=== PATIENT | female | born 1955 | race Caucasian/White ===

== ENCOUNTER → 2017-08-04 09:02 | Outpatient (CLI) | payer BC, SELFPAY ==
[2017-08-04 10:38] LABS: AST(SGOT) 13 U/L (15-37); Alanine Aminotransfer ALT/SGPT 21 U/L (13-56); Albumin, Serum 3.7 g/dL (3.2-5.0); Alkaline Phosphatase 116 U/L (45-117); Anion Gap 8 (5-15); BUN 14 mg/dL (7-18); BUN/Creat Ratio 19.9 RATIO (10-20); Calcium,Total 9.2 mg/dL (8.5-10.1); Chloride 105 mmol/L (98-107); Cholesterol 145 mg/dL (200); EST Glomerular Filtration Rate 89 mL/min (>60); Est Glom Filt Rate - Afr Amer 108 mL/min (>60); Globulin 3.6 g/dL (2.2-4.2); Glucose 158 mg/dL (74-106); High Density Lipoprotein 59 mg/dL; Potassium 4.1 mmol/L (3.5-5.1); Protein, Total 7.3 g/dL (6.4-8.2); Sodium Level 140 mmol/L (136-145); Triglycerides 114 mg/dL; Very Low Density Lipoprotein 23 mg/dL (5-40)
[2017-08-04 10:50] LABS: Microalbumin,Random Urine 10.4 mg/L (NO RANGE EST.); Microalbumin:Creatinine Ratio 10.8 mg/g CRE (<30 mg/g CRE)
[2017-08-05 08:48] LABS: Vitamin D,25 Hydroxy 27.5 ng/mL (29.95-100.01)
== END ==
PROVIDERS: Family Provider Internal Medicine; PCP Internal Medicine; Visit Provider Internal Medicine
DX: E11.9 Type 2 diabetes mellitus without complications (principal); E78.5 Hyperlipidemia, unspecified; M85.80 Other specified disorders of bone density and structure, unspecified site
CPT/HCPCS: 36415; 80053; 80061; 82043; 82306; 82570; 83036

== ENCOUNTER → 2017-10-06 09:54 | Outpatient (CLI) | payer BC, SELFPAY ==
[2017-10-06 11:15] LABS: Rheumatoid Factor < 10.0 IU/mL (<15)
[2017-10-07 14:35] LABS: ANTINUCLEAR ANTIBODIES DIRECT Negative (Negative)
== END ==
LOC: LAB 09:58 → INT LAB 10:00
PROVIDERS: Family Provider Internal Medicine; PCP Internal Medicine; Visit Provider Internal Medicine
DX: M19.90 Unspecified osteoarthritis, unspecified site (principal)
CPT/HCPCS: 36415; 86038; 86225; 86235; 86431

== ENCOUNTER → 2017-11-03 07:20 | Outpatient (CLI) | payer BC, SELFPAY ==
--- NOTE | 2017-11-03 07:20 | DT_ITS ---
This patient was seen during an EMR downtime November 02, 2017 - November 09, 2017. This patient may have a combination of paper and electronic documentation or all paper documentation. All documentation is viewable within the e-chart portion of [facility] for each patient visit.
--- NOTE | 2017-11-03 07:25 | BI_ITS ---
MAMMOGRAPHY - BILATERAL SCREENING REASON FOR EXAM: Female, 62 years old. Routine annual screening examination. PERTINENT HISTORY: PERSONAL HX @ AGE 59 - RT LUMPECTOMY 2015 - CURRENT ESTROEN KIRK x 3 YRS TECHNIQUE: Digital bilateral breast nikki (3D mammographic acquisition) in the CC and MLO projections. 2-D mediolateral oblique (MLO) and craniocaudad (CC) views of both breasts were obtained. CAD: Full Field Digital Mammography with Computer Added Detection was performed. COMPARISON: 11/11/2016, 05/29/2016, 11/06/2015, 05/17/2015. FINDINGS: Breast Composition: The breasts are heterogeneously dense, which may obscure small masses. There are no dominant masses or suspicious calcifications. There is a scar in the right breast at the lumpectomy site appears unchanged since the previous studies. No other significant abnormalities are identified. BI/SCREENING MAMM (CAD), BILAT IMPRESSION: Stable bilateral screening mammogram. Yearly follow-up mammogram recommended. (A) ASSESSMENT CATEGORY: BIRADS Category 2: Benign. A letter regarding these results will be sent to the patient by the facility within 30 days. Approximately 10% of breast cancers are not detected by mammography. A normal mammogram should not delay biopsy of a clinically suspicious abnormality. [id number] Electronically Signed: Hali Patel MD at 15:48 EDT Tel , Service support ,
== END ==
PROVIDERS: Family Provider Internal Medicine; PCP Internal Medicine; Visit Provider Internal Medicine Hematology & Oncology
DX: Z12.31 Encounter for screening mammogram for malignant neoplasm of breast (principal); C50.911 Malignant neoplasm of unspecified site of right female breast; M85.80 Other specified disorders of bone density and structure, unspecified site
CPT/HCPCS: 77063; 77067

== ENCOUNTER → 2018-01-12 08:41 | Outpatient (CLI) | payer BC, SELFPAY ==
[2018-01-12 09:22] LABS: Absolute Lymphocyte Count 1.26 X10^3/ul (0.83-4.51); Absolute Neutrophil Count 3.8 X10^3/uL (2.0-7.7); Basophil# 0.02 X10^3/uL; Basophil% 0.4 % (0-1); Eosinophil# 0.13 X10^3/uL; Eosinophils% 2.4 % (0-5); Hematocrit 40.6 % (37-47); Hemoglobin 13.1 g/dl (12.0-15.0); Lymphocyte # 1.26 X10^3/ul (4.0); Lymphocyte % 23.3 % (19-41); Mean Corp Hgb Conc 32.3 g/gl (32-36); Mean Corpuscular Hgb 29.4 pg (27.0-32.0); Mean Platelet Vol. 8.7 fl (6.2-12.0); Monocyte# 0.21 X10^3/uL; Monocyte% 3.9 % (0-10); Neutrophil # 3.79 X10^3/uL (2.7-7.7); POSITIVE COUNT NO; POSITIVE DIFFERENTIAL NO; POSITIVE MORPHOLOGY NO; Platelet Count 226 K/mm3 (150-450); Red Blood Count 4.46 M/mm3 (4.2-5.4); White Blood Count 5.4 K/mm3 (4.4-11.0)
[2018-01-12 09:45] LABS: Hemoglobin A1c 6.6 % (4.2-6.3)
[2018-01-12 09:54] LABS: AST(SGOT) 14 U/L (15-37); Alanine Aminotransfer ALT/SGPT 21 U/L (13-56); Albumin, Serum 3.6 g/dL (3.2-5.0); Alkaline Phosphatase 64 U/L (45-117); Anion Gap 8 (5-15); BUN 16 mg/dL (7-18); BUN/Creat Ratio 20.2 RATIO (10-20); Calcium,Total 9.2 mg/dL (8.5-10.1); Chloride 104 mmol/L (98-107); Creatinine, Serum 0.79 mg/dL (0.55-1.02); EST Glomerular Filtration Rate 78 mL/min (>60); Est Glom Filt Rate - Afr Amer 94 mL/min (>60); Globulin 3.6 g/dL (2.2-4.2); Glucose 161 mg/dL (74-106); Potassium 4.9 mmol/L (3.5-5.1); Protein, Total 7.2 g/dL (6.4-8.2); Sodium Level 141 mmol/L (136-145)
== END ==
PROVIDERS: Internal Medicine Hematology & Oncology; Family Provider Internal Medicine; PCP Internal Medicine; Visit Provider Internal Medicine
DX: E11.9 Type 2 diabetes mellitus without complications (principal); M85.80 Other specified disorders of bone density and structure, unspecified site; C50.911 Malignant neoplasm of unspecified site of right female breast
CPT/HCPCS: 36415; 80053; 83036; 85025

== ENCOUNTER → 2018-05-03 10:17 | Outpatient (CLI) | payer BC, SELFPAY ==
[2018-05-03 10:17] VITALS: BMI 36.2
[2018-05-03 11:15] LABS: Microalbumin,Random Urine 10.1 mg/L (NO RANGE EST.); Microalbumin:Creatinine Ratio 10.9 mg/g CRE (<30 mg/g CRE)
[2018-05-03 11:17] LABS: ALB/GLOB Ratio 1.1 RATIO (0.9-2.4); AST(SGOT) 13 U/L (15-37); Alanine Aminotransfer ALT/SGPT 21 U/L (13-56); Albumin, Serum 3.6 g/dL (3.2-5.0); Alkaline Phosphatase 62 U/L (45-117); Anion Gap 7 (5-15); BUN 17 mg/dL (7-18); BUN/Creat Ratio 26.1 RATIO (10-20); Calcium,Total 8.7 mg/dL (8.5-10.1); Chloride 106 mmol/L (98-107); Cholesterol 132 mg/dL (200); Creatinine, Serum 0.65 mg/dL (0.55-1.02); EST Glomerular Filtration Rate 97 mL/min (>60); Est Glom Filt Rate - Afr Amer 118 mL/min (>60); Globulin 3.4 g/dL (2.2-4.2); Glucose 158 mg/dL (74-106); High Density Lipoprotein 65 mg/dL; Sodium Level 140 mmol/L (136-145); Triglycerides 85 mg/dL; Very Low Density Lipoprotein 17 mg/dL (5-40)
[2018-05-03 11:21] LABS: Hemoglobin A1c 6.8 % (4.2-6.3)
[2018-05-03 11:23] LABS: Vitamin D,25 Hydroxy 39.6 ng/mL (29.95-100.01)
--- OUTSIDE RECORDS SUMMARY | 2018-06-26 15:13 | XMS RPT_ITS ---
:1955 Author Organization OHIP Care Team Providers Name Role Phone Frances Bolivar Attending Unavailable Samanthakarus Mansour Referring Unavailable Oleghe, Efewongbe Primary Care Unavailable Frances Bolivar Attending Unavailable Oleghe, Efewongbe Attending Unavailable Primay Care Physicia, No Referring Unavailable Primay Care Physicia, No Primary Care Unavailable Oleghe, Efewongbe Attending Unavailable Samanthakarus, Mansour Referring Unavailable Oleghe, Efewongbe Primary Care Unavailable Cornelia Craig Attending Unavailable Oleghe, Efewongbe Attending Unavailable Oleghe, Efewongbe Referring Unavailable Oleghe, Efewongbe Primary Care Unavailable Oleghe, Efewongbe Attending Unavailable Oleghe, Efewongbe Referring Unavailable Oleghe, Efewongbe Primary Care Unavailable Oleghe, Efewongbe Attending Unavailable Oleghe, Efewongbe Referring Unavailable Oleghe, Efewongbe Primary Care Unavailable Samanthakarus Mansour Attending Unavailable Isckarus, Mansour Referring Unavailable Oleghe, Efewongbe Primary Care Unavailable Oleghe, Efewongbe Attending Unavailable Oleghe, Efewongbe Referring Unavailable Oleghe, Efewongbe Primary Care Unavailable David Carpio WATER RESOURCE PROJECT MANAGER-C Attending Unavailable Oleghe, Efewongbe Referring Unavailable Oleghe, Efewongbe Primary Care Unavailable Oleghe, Efewongbe Attending Unavailable Oleghe, Efewongbe Referring Unavailable Oleghe, Efewongbe Primary Care Unavailable Oleghe, Efewongbe Attending Unavailable Oleghe, Efewongbe Referring Unavailable Oleghe, Efewongbe Primary Care Unavailable Isckarus, Mansour Attending Unavailable Isckarus, Mansour Referring Unavailable Oleghe, Efewongbe Primary Care Unavailable Isckarus, Mansour Consulting Unavailable Oleghe, Efewongbe Attending Unavailable Oleghe, Efewongbe Referring Unavailable Oleghe, Efewongbe Attending Unavailable Oleghe, Efewongbe Referring Unavailable Oleghe, Efewongbe Primary Care Unavailable Oleghe, Efewongbe Attending Unavailable Oleghe, Efewongbe Referring Unavailable PROBLEMS PROBLEMS DATE TYPE CONDITION / CODE ATTENDING STATUS SOURCE 05/10/2018 Unknown E11.9 - Type 2 Oleghe, Active [facility] diabetes mellitus [facility] without Hospital complications / Repository E11.9(ICD-10) 02/10/2018 Unknown C50.911 - Malignant Isckarus, Active [facility] neoplasm of [facility] unspecified site of Hospital right female breast Repository / C50.911(ICD-10) 01/18/2018 Unknown E78.5 - Oleghe, Active [facility] Hyperlipidemia, [facility] unspecified / Hospital E78.5(ICD-10) Repository 01/18/2018 Unknown E55.9 - Vitamin D Oleghe, Active [facility] deficiency, [facility] unspecified / Hospital E55.9(ICD-10) Repository 11/25/2017 Unknown Z12.31 - Encounter Isckarus, Active [facility] for screening [facility] mammogram for Hospital malignant neoplasm Repository of breast / Z12.31(ICD-10) 10/20/2017 Unknown M19.90 - Oleghe, Active [facility] Unspecified [facility] osteoarthritis, Hospital unspecified site / Repository M19.90(ICD-10) 10/05/2017 Unknown M85.80 - Other Oleghe, Active [facility] specified disorders [facility] of bone density and Hospital structure, Repository unspecified site / M85.80(ICD-10) 10/05/2017 Unknown I10 - Essential Oleghe, Active [facility] (primary) [facility] hypertension / Hospital I10(ICD-10) Repository PROCEDURES PROCEDURES No Procedure Records FoundRESULTS RESULTS INTERNAL MEDICINE Observed: 05/13/2018 Status: F Source: [facility] OFFICE VISIT 6:56 PM [facility] [address] [place] [address] [place] [address] OFFICE VISIT Date of Service: 05/10/18 MR#: [id number] Acct: [id number] Name: CHIOMA LOCO Rep #: [id number] : 1955 Provider: Shereen Shoemaker MD Age/Sex: 63/F Location: [facility] Status: Signed Intake Vital Signs05/10/18 Body Mass Index (BMI) 36.2 05/10/18 Height 5 ft 2 in Intake Visit Reasons: 3 MO FU Chief Complaint: 3 month follow-up Is patient in pain?: No Allergies cephalexin [From Keflex] Allergy (Intermediate, Verified 02/08/18 13:59) Rash niacin Allergy (Intermediate, Verified 02/08/18 13:59) Hives penicillin V [From Pen-Vee K] Allergy (Intermediate, Verified 02/08/18 13:59) Hives BEES Allergy (Intermediate, Uncoded 02/08/18 13:59) Swelling Medications aspirin 81 mg tablet,delayed release 81 mg PO DAILY 07/10/17 [History Confirmed 02/08/18] calcium citrate-vitamin D3 315 mg-250 unit tablet 1 tab PO BID 07/10/17 [History Confirmed 02/08/18] metformin 1,000 mg tablet 1,000 mg PO BID #180 tab 10/22/17 [Rx Confirmed 02/08/18] simvastatin 40 mg tablet 40 mg PO QPM #90 tab 10/22/17 [Rx Confirmed 02/08/18] lisinopril 20 mg tablet 20 mg PO DAILY #90 tab 01/18/18 [Rx Confirmed 02/08/18] Anastrozole [Arimidex] 1 mg PO DAILY 90 Days #90 tab 02/08/18 [Rx] pioglitazone 30 mg tablet 30 mg PO DAILY #90 tab 04/27/18 [Rx] PFSH Medical History Breast cancer (Acute) Diabetes (Acute) Hyperlipidemia (Acute) 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) HTN (hypertension) (Chronic) Surgical History History of lumpectomy of right breast (Acute) Family History Mother CAD (coronary artery disease) Heart disease Asthma Father CAD (coronary artery disease) Thrombocytopenia Melanoma Myocardial infarction, Onset Age: 83 Brother Suicide Grandfather Colon cancer Sister Asthma Social History Smoking Status: Never smoker alcohol intake: never substance use type: does not use what type of physical activity do you participate in: none HPI HPI Chief Complaint: 3 month follow-up Details: CHIOMA LOCO, is a 63yo F who presents to the office today for follow-up of her chronic medical conditions. She has no acute concerns at this time. During her last visit, lisinopril was adjusted due to poorly controlled blood pressure. She has not routinely checked her blood pressure at home however blood pressure in office is better controlled. She reports compliance with her medications. 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 ROS Const Constitutional: No weight change, body ache, chills, fatigue, sleep problems, fever(s), change in appetite, snoring, weakness, frequent falls, headache(s) or excessive sweating Eyes Eyes: No change in vision, eye pain, light sensitivity or blurry vision ENT ENT: No headache(s), abnormal hearing, ear pain, tinnitus, nasal congestion, sore throat or neck pain Resp Respiratory: No snoring, cough, shortness of breath or wheezing Cardio Cardiology: No excessive sweating, chest pain at rest, chest pain with exertion, shortness of breath, dyspnea on exertion, palpitations, orthopnea or lightheadedness Gastro GI: No abdominal pain, change in bowel habits, constipation, diarrhea, vomiting, nausea/dyspepsia or cramping Genitourinary-Female: No burning urination, painful urination, urinary incontinence, urinary frequency, abnormal vaginal bleeding, pelvic pain or other Musc Musculoskeletal: No neck pain, abnormal walking, joint pain, back pain, limited range of motion, numbness or tingling Skin Skin: No redness, dry skin, itching, lesions, wounds or rash Neuro Neurology: No weakness, frequent falls, headache(s), abnormal hearing, abnormal walking, numbness, tingling, abnormal speech, dizziness or memory loss Psych Psychiatric: No change in appetite, No memory loss, No anxiety, No depression, No Thoughts of harming yourself/Others Endo Endocrine: No fatigue, excessive sweating, cold intolerance, increased thirst/drinking, heat intolerance, flushing or increased hunger Aller/Imm Allergy/Immunologic: No wheezing, itchy eyes, hives or seasonal allergy symptoms Shyam/Lymp Hematologic/Lymphatic: No easy bleeding, easy bruising or enlarged lymph nodes Exam Const General: cooperative, no acute distress Orientation: alert, awake, oriented x3 HENMT Head: normal to inspection, normocephalic, atraumatic Ears: hearing grossly normal bilaterally, TM's normal bilaterally Neck Neck: normal visual inspection, full ROM, no lymphadenopathy Neck mass: No Thyroid: thyroid normal Resp Effort AND Inspection: normal respiratory effort, able to speak in complete sentences Auscultation: Bilateral: Clear to Auscultation Cardio Rate: regular rate Rhythm: regular rhythm Heart Sounds: S1 normal, S2 normal GI Palpation: soft, no hepatosplenomegaly Neuro General: alert, awake, oriented x3, moves all extremities, CN's II-XI intact bilaterally Extrem General: no clubbing, cyanosis or edema Other: Psych Appearance: grossly normal Mood: congruent mood Affect: normal affect Assessment AND Plan 1. Hypertension I10 Plan Better controlled. Continue current medication. Continue lifestyle and dietary modifications. 2. Type 2 diabetes mellitus E11.9 Plan A1c slightly increased to 6.8 from 6.6. No medication changes at this time. Dietary and lifestyle modifications discussed. Repeat A1c in 3 months. If more increase is noted, will adjust medications. Orders Orders: 3. Hyperlipidemia E78.5 Plan Optimal control. LDL of 50 and HDL of 65. Continue current management. 4. Osteopenia M85.80 Plan Currently on Prolia being administered by oncology. Last administration was in January. Continue calcium and vitamin D supplements. This note was generated with [employer] dictation software. It may contain incorrect words, spelling, and punctuation that were not noted in checking the note before signing. Coding Level of Care Code Off vis,est,level 3 Diagnoses Hypertension I10 Type 2 diabetes mellitus E11.9 Hyperlipidemia E78.5 Osteopenia M85.80 05/13/18 1851 <Electronically signed by Shereen Shoemaker MD> Date Shereen Shoemaker MD Cosigner Signature: Date (if applicable) CC: MICROALB:CREAT Collected: 05/03/2018 Status: F Source: [facility] RATIO,RANDOM UR 10:21 AM [facility] REPOSITORY TYPE CODE TESTS RESULT OUT OF RANGE REFERENCE UNITS LAB L501.1200 NO RANGE EST. mg/dL Normal UR CREAT 92.90 LAB L502.0500 NO RANGE EST. mg/L Normal 10.1 MICROALBUMIN ,UR LAB L502.0600 <30 mg/g CRE mg/g CRE Normal 10.9 MALB:CREAT Performed By: #### L502.0250 #### [facility] [address] [place], [place], [id number] COMPREHENSIVE METABOLIC Collected: 05/03/2018 Status: F Source: [facility] PROFIL 10:21 AM [facility] REPOSITORY TYPE CODE TESTS RESULT OUT OF RANGE REFERENCE UNITS LAB L501.0100 74-106 mg/dL High GLU 158 Result Comment: Fasting Glucose result greater than or equal to 126 mg/dL suggests DIABETES MELLITUS per A.D.A. criteria. Please note revised GLUCOSE reference range effective 2017. LAB L501.1000 7-18 mg/dL Normal BUN 17 LAB L501.1100 0.55-1.02 mg/dL Normal CREAT,SERUM 0.65 Result Comment: The validity of the calculated GFR AND GFRAA in patients over 70 years has not been determined. Clinical correlation is essential. LAB L501.1110 >60 mL/min Normal EST GFR 97 Result Comment: Non- GFR Calc LAB L501.1115 >60 mL/min Normal EST GFR - AA 118 Result Comment: GFR Calc LAB L501.1300 10-20 RATIO High BUN/CRE 26.1 LAB L501.1500 6.4-8.2 g/dL T Normal PROT 7.0 LAB L501.1800 3.2-5.0 g/dL Normal ALB 3.6 LAB L501.1950 2.2-4.2 g/dL Normal GLOB 3.4 LAB L501.2000 0.9-2.4 RATIO Normal A/G 1.1 LAB L501.2200 8.5-10.1 mg/dL CA Normal 8.7 LAB L501.4100 15-37 U/L Low AST 13 LAB L501.4305 45-117 U/L Normal ALK P 62 LAB L501.4405 13-56 U/L Normal ALT 21 LAB L501.4600 0.20-1.00 mg/dL T Normal BILI 0.80 LAB L501.5300 136-145 mmol/L NA Normal 140 LAB L501.5600 3.5-5.1 mmol/L K Normal 4.0 LAB L501.5900 98-107 mmol/L CL Normal 106 LAB L501.6100 21.0-32.0 mmol/L Normal CO2 27.0 LAB L501.6200 5-15 Normal GAP 7 Performed By: #### L500.4050, L500.4100 #### [facility] [address] [place], [place], [id number] LIPID PROFILE Collected: 05/03/2018 Status: F Source: [place] 10:21 AM [facility] REPOSITORY TYPE CODE TESTS RESULT OUT OF RANGE REFERENCE UNITS LAB L501.4900 200 mg/dL Normal CHOL 132 Result Comment: <200 mg/dL Desirable 200-240 mg/dL Borderline >240 mg/dL High Risk LAB L501.5000 mg/dL Normal TRIG 85 Result Comment: The drugs N-Acetylcysteine and Metamizole may falsely depress this assay. Serum Triglycerides Reference Interval Normal <150 mg/dL Borderline high 150 - 199 mg/dL High 200 - 499 mg/dL Very High > or = 500 mg/dL LAB L501.6400 mg/dL Normal HDL 65 Result Comment: The drugs N-Acetylcysteine and Metamizole may falsely depress this assay. Reference Range HDL <40 mg/dL Low HDL Cholesterol HDL >or= 60 mg/dL High HDL Cholesterol LAB L501.6500 0-130 mg/dL Normal LDL 50 LAB L501.6600 5-40 mg/dL Normal VLDL 17 Performed By: #### L500.4050, L500.4100 #### [facility] [address] [place], [place], [id number] HEMOGLOBIN A1C Collected: 05/03/2018 Status: F Source: [place] 10:21 AM [facility] REPOSITORY TYPE CODE TESTS RESULT OUT OF RANGE REFERENCE UNITS LAB L501.9985 4.2-6.3 % High HGB A1C 6.8 Performed By: #### L501.9985 #### [facility] [address] [place], [address] VITAMIN D,25 HYDROXY Collected: 05/03/2018 Status: F Source: [facility] 10:21 AM [facility] REPOSITORY TYPE CODE TESTS RESULT OUT OF RANGE REFERENCE UNITS LAB L506.1000 29.95-100.01 ng/mL Normal Vitamin D 39.6 25-OH Result Comment: Vitamin D 25(OH) Status Range Deficiency <20 ng/mL (50nmol/L) Insuffciency 20 - 30 ng/mL (50 - 75 nmol/L) Sufficiency 30 - 100 ng/mL (75 - 250 nmol/L) Toxicity >100 ng/mL (>250 nmol/L) Performed By: #### L506.1000 #### [facility] [address] [place], [address] OFFICE VISIT REPORT Observed: 03/18/2018 Status: F Source: [facility] 6:30 PM [facility] REPOSITORY [facility] [address] [place] [address] OFFICE VISIT Date of Service: 03/15/18 MR#: [id number] Acct: [id number] Patient: CHIOMA LOCO Rep #: [id number] : 1955 Provider: Shereen Shoemaker MD Age/Sex: 63/F Location: [facility] Status: Signed Intake Intake Visit Reasons: flu shot Chief Complaint: Breast cancer Allergies cephalexin [From Keflex] Allergy (Intermediate, Verified 02/08/18 13:59) Rash niacin Allergy (Intermediate, Verified 02/08/18 13:59) Hives penicillin V [From Pen-Vee K] Allergy (Intermediate, Verified 02/08/18 13:59) Hives BEES Allergy (Intermediate, Uncoded 02/08/18 13:59) Swelling Medications aspirin 81 mg tablet,delayed release 81 mg PO DAILY 07/10/17 [History Confirmed 02/08/18] calcium citrate-vitamin D3 315 mg-250 unit tablet 1 tab PO BID 07/10/17 [History Confirmed 02/08/18] metformin 1,000 mg tablet 1,000 mg PO BID #180 tab 10/22/17 [Rx Confirmed 02/08/18] pioglitazone 30 mg tablet 30 mg PO DAILY #90 tab 10/22/17 [Rx Confirmed 02/08/18] simvastatin 40 mg tablet 40 mg PO QPM #90 tab 10/22/17 [Rx Confirmed 02/08/18] lisinopril 20 mg tablet 20 mg PO DAILY #90 tab 01/18/18 [Rx Confirmed 02/08/18] Anastrozole [Arimidex] 1 mg PO DAILY 90 Days #90 tab 02/08/18 [Rx] Office Meds Flucelvax Quad [id number] (PF) Performing Provider: Shereen Shoemaker MD Administered by: Cornelia Craig on 03/15/18 10:42 Dose Route Admin Location Lot Number Expiration Date NDC Air 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 Assessment AND Plan Orders Orders: Medications Discontinued: Flucelvax Quad [id number] (PF) (flu vac qs 2018(4 yr up)CD(P0.5 mL IM ONCE 1 mL 0RF NS Z23 F)) Discontinued Reason: Office Medication has been Doc umented as given Nursing Note Pt presents today for her influenza vaccination. She tolerated the injection well and had no complaints afterwards. 03/18/18 1830 <Electronically signed by Shereen Shoemaker MD> Date Shereen Shoemaker MD Cosigner Signature: Date (if applicable) CC: ONCOLOGY VISIT REPORT Observed: 02/08/2018 Status: F Source: [facility] 2:19 PM [facility] [address] [address] OFFICE VISIT Date of Service: 02/08/18 1359 MR#: [id number] Acct: [id number] Name: CHIOMA LOCO Rep #: [id number] : 1955 From: Frances Bolivar MD Age/Sex: 62/F Location: [facility] Status: Signed - Problem List (1) Cancer of right female breast Status: Chronic (2) Osteopenia Status: Chronic - Date of Service Date of Service:: 02/08/18 - Chief Complaint Breast cancer - History of Present Illness Patient is a 62-year-old female who recently moved to [place] from [place]. She was diagnosed with right breast cancer on routine mammography in early 2014. A biopsy confirmed an invasive lobular cancer. On July 19, 2014 she underwent partial mastectomy with sentinel lymph node biopsy that revealed an invasive lobular carcinoma single focus maximum tumor size was 3 cm and no metastases and sentinel lymph node biopsies. LCIS was noted on the resected tissue overall tumor grade was 2, ER positive, RI positive, HER-2 not overexpressed and Oncotype DX was a low risk for recurrent disease. She received adjuvant radiation therapy and was started on adjuvant hormonal therapy with Arimidex in the spring 2014 which she tolerated well. Bone density showed osteopenia and she was started on Prolia last received October 2016. She is compliant with vitamin D calcium supplementation also. She has comorbid hypertension, diabetes, dyslipidemia and overweight. She has no first-degree relatives with breast cancers and genetic testing was not done in [place] - Past Medical/Social History Past Medical History Cancer: Breast cancer Social History Smoking Status Never smoker Review of Systems Constitutional:: Reports: - - No hot flashes. Denies: Fever, Sweats, Weight loss, Appetite change, Chills Cardiovascular:: Denies: Chest pain, Palpitations, Dyspnea on exertion, Orthopnea, PND, Shortness of breath Respiratory: Denies: Cough, Hemoptysis, Shortness of Breath, Wheezing Gastrointestinal:: Denies: Abdominal pain, Nausea, Vomiting, Diarrhea, Constipation, Hematochezia Genitourinary: Denies: Dysuria, Hematuria, 15, Flank pain Musculoskeletal:: Reports: Arthralgia - Chronic manageable. Denies: Back pain, Myalgia Skin: Denies: Rash, Skin Changes, Wounds Neurological:: Denies: Headache, Dizziness, Visual changes, Tinnitus, Hearing loss Psychiatric: Denies: Anxiety, Depression, Homicidal Ideations, Suicidal Ideations Vital Signs Height 5 ft 2.6 in Weight: 90.265 kg Weight in Pounds 199.0 lbs Pulse Ox 98 - Physical Exam General: Alert, Oriented x3, No apparent distress HEENT: Atraumatic, PERRLA, EOMI, Normocephalic Oropharynx:: Dry mucosa Neck:: Supple, Trachea midline. Negative for: JVD, bilateral Cardiac:: Regular rate, Regular rhythm, Normal S1, Normal S2. Negative for: Murmur Lungs: Clear to auscultation, Excusion symmetrical. Negative for: Rhonchi, Wheezes Abdomen:: Soft, Non-tender, Non-distended. Negative for: Hepatosplenomegaly Extremities:: Negative for: Cyanosis, Edema Neurological: Neuro grossly intact Skin:: Negative for: Lesions, Rash, Petechiae, Ecchymosis Psychiatric:: Appropriate affect, Euthymic Lymphatics:: Negative for: Cervical lymphadenopathy, Supraclavicular lymphadenopathy, Axillary lymphadenopathy Laboratory Data: CBC, CMP December 2017 reviewed in EMR Diagnostic Data: Mammogram October 2017: Stable bilateral screening mammogram. Yearly follow-up mammogram recommended. Assessment and Plan 62-year-old female with stage IIA (T1, N0, M0) invasive lobular carcinoma of the right breast. 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 Patient is status post partial mastectomy with sentinel lymph node biopsy in July 2014 followed by adjuvant radiation. She has been on adjuvant Arimidex therapy since the spring 2014 she tolerates it well without any excessive toxicities. At this time there is no evidence to suggest cancer recurrence. Advised to continue adjuvant hormonal therapy at least 5 years. She will be due for her annual screening mammogram in October 2018 . She is due for Prolia every 6 months. Instructed to continue with oral supplementation of calcium and vitamin D. Breast self-exam monthly and exam by MD annual. Medications: Prescriptions This Visit Medication Instructions Recorded Anastrozole [Arimidex] 1 mg PO DAILY 90 Days #90 tab 10/22/17 Primary Care Provider: No Primary Care Phys Referring Provider: Frances Bolivar MD 02/08/18 1419 <Electronically signed by Frances Bolivar MD> Date Frances Bolivar MD Cosigner Signature: Date (if applicable) CC: INTERNAL MEDICINE Observed: 01/19/2018 Status: F Source: [facility] OFFICE VISIT 8:35 AM [facility] [address] [place] [address] [place] [address] OFFICE VISIT Date of Service: 01/18/18 MR#: [id number] Acct: [id number] Name: CHIOMA LOCO Rep #: [id number] : 1955 Provider: Shereen Shoemaker MD Age/Sex: 62/F Location: [facility] Status: Signed Intake Vital Signs01/18/18 Height 5 ft 2 in 01/18/18 Weight: 201 lb 6 oz 01/18/18 Body Mass Index (BMI) 36.8 01/18/18 Blood Pressure 142/78 01/18/18 Blood Pressure Location Lt brachial 01/18/18 Blood Pressure Position Sitting Intake Visit Reasons: 3 mo fu Chief Complaint: Follow - up Pool Servicer Required: No Accompanied by: None Is patient in pain?: No Allergies cephalexin [From Keflex] Allergy (Verified 12/16/17 15:07) Unknown niacin Allergy (Verified 12/16/17 15:07) Hives penicillin V [From Pen-Vee K] Allergy (Verified 12/16/17 15:07) Hives BEES Allergy (Uncoded 12/16/17 15:07) Swelling Medications aspirin 81 mg tablet,delayed release PO 07/10/17 [History Confirmed 12/16/17] calcium citrate-vitamin D3 315 mg-250 unit tablet 1 tab PO BID 07/10/17 [History Confirmed 12/16/17] Anastrozole [Arimidex] 1 mg PO DAILY 90 Days #90 tab 10/22/17 [Rx Confirmed 12/16/17] metformin 1,000 mg tablet 1,000 mg PO BID #180 tab 10/22/17 [Rx Confirmed 12/16/17] pioglitazone 30 mg tablet 30 mg PO DAILY #90 tab 10/22/17 [Rx Confirmed 12/16/17] simvastatin 40 mg tablet 40 mg PO QPM #90 tab 10/22/17 [Rx Confirmed 12/16/17] lisinopril 20 mg tablet 20 mg PO DAILY #90 tab 01/18/18 [Rx Confirmed 01/18/18] PFSH Medical History Breast cancer (Acute) Diabetes (Acute) Hyperlipidemia (Acute) 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) HTN (hypertension) (Chronic) Surgical History History of lumpectomy of right breast (Acute) Family History Mother CAD (coronary artery disease) Heart disease Asthma Father CAD (coronary artery disease) Thrombocytopenia Melanoma Myocardial infarction, Onset Age: 83 Brother Suicide Grandfather Colon cancer Sister Asthma Social History Smoking Status: Never smoker alcohol intake: never substance use type: does not use what type of physical activity do you participate in: none HPI HPI Chief Complaint: Follow - up Details: CHIOMA LOCO, is a 62yo F who presents to the office today for follow-up of her chronic medical conditions. Is also noted that she was in November for an upper respiratory tract infection. Symptoms are for the most part significantly resolved however still experiences some ear fullness. She denies chills, bilateral ear pain, or otherwise feeling of unwell. He denies any significant nasal congestion. Diabetes is well-controlled with her A1c coming down from 7-6.6. She reports compliance with her medications. She also is currently on lisinopril however blood pressure has been about 142 over 70s mmHg. ROS Const Constitutional: No body ache, chills, fatigue, fever(s), frequent falls, headache(s), weight change, sleep problems, change in appetite, snoring, excessive sweating or weakness Eyes Eyes: No blurry vision, change in vision, eye pain or light sensitivity ENT ENT: Positive for abnormal hearing; no headache(s), ear pain, tinnitus, nasal congestion, nasal discharge, sore throat or neck pain Resp Respiratory: No snoring, cough, shortness of breath or wheezing Cardio Cardiology: No excessive sweating, chest pain at rest, chest pain with exertion, shortness of breath, dyspnea on exertion, orthopnea, palpitations or lightheadedness Gastro GI: No abdominal pain, change in bowel habits, diarrhea, constipation, vomiting, nausea/dyspepsia or cramping Genitourinary-Female: No difficulty urinating, burning urination, painful urination, urinary frequency, urinary urgency, urinary incontinence, blood in urine, urinary retention or urinary hesitancy Musc Musculoskeletal: No neck pain, abnormal walking, joint pain, back pain, limited range of motion, numbness or tingling Skin Skin: No redness, dry skin, itching, lesions, wounds or rash Neuro Neurology: Positive for abnormal hearing; no frequent falls, headache(s), weakness, abnormal walking, numbness, tingling, abnormal speech, dizziness or memory loss Psych Psychiatric: No change in appetite, No memory loss, No anxiety, No depression, No Thoughts of harming yourself/Others Endo Endocrine: No fatigue, excessive sweating, cold intolerance, increased thirst/drinking, heat intolerance, increased hunger or flushing Aller/Imm Allergy/Immunologic: No wheezing, itchy eyes, seasonal allergy symptoms or hives Shyam/Lymp Hematologic/Lymphatic: No easy bleeding, easy bruising or enlarged lymph nodes Exam Const General: cooperative, no acute distress Orientation: alert, awake, oriented x3 HENMT Head: normal to inspection, normocephalic, atraumatic Ears: hearing grossly normal bilaterally, TM's normal bilaterally Neck Neck: normal visual inspection, full ROM, no lymphadenopathy Neck mass: No Thyroid: thyroid normal Resp Effort AND Inspection: normal respiratory effort, able to speak in complete sentences Auscultation: Bilateral: Clear to Auscultation Cardio Rate: regular rate Rhythm: regular rhythm Heart Sounds: S1 normal, S2 normal GI Palpation: soft, no hepatosplenomegaly Neuro General: alert, awake, oriented x3, moves all extremities, CN's II-XI intact bilaterally Extrem General: no clubbing, cyanosis or edema Other: Mild maceration noted between the left fourth and fifth toe web space Psych Appearance: grossly normal Mood: congruent mood Affect: normal affect Assessment AND Plan 1. Ear fullness H93.8X9 Plan No significant abnormality on examination. Advised to continue Flonase for about 3 weeks. If no significant symptom improvement, will refer to ENT. 2. Type 2 diabetes mellitus E11.9 Plan Better controlled. Continue current medication and lifestyle modifications. Repeat labs in 3 months. Orders Orders: 3. Hypertension I10 Plan Not optimally controlled. Increase lisinopril to 20 mg daily. Dietary and lifestyle modifications discussed. Follow-up at next visit. 4. Hyperlipidemia E78.5 Plan Stable. Repeat lipid profile in 3 months. Continue current management. Orders Orders: 5. Healthcare maintenance Z00.00 Plan Had a colonoscopy and Pap smear about 2 years ago. Colonoscopy due in 10 years and Pap smear Stephany about a year. Last mammogram was within normal. Continue follow-up with oncology. This note was generated with [employer] software. It may contain incorrect words, spelling, and punctuation that were not noted in checking the note before signing. Plan Detail Other Orders Orders: Other Medications Changed: Coding Level of Care Code Off vis,est,level 4 Diagnoses Ear fullness H93.8X9 Type 2 diabetes mellitus E11.9 Hypertension I10 Hyperlipidemia E78.5 Healthcare maintenance Z00.00 01/19/18 0835 <Electronically signed by Shereen Shoemaker MD> Date Shereen Shoemaker MD Cosigner Signature: Date (if applicable) CC: CBC W/DIFF, AUTOMATED Collected: 01/12/2018 Status: F Source: [facility] 8:48 AM [facility] REPOSITORY Order Comment: PLEASE COPY DR SHOEMAKER ON LABS PER PT REQUEST. [id number] Reason for Laboratory Test . TYPE CODE TESTS RESULT OUT OF RANGE REFERENCE UNITS LAB L100.1000 4.4-11.0 K/mm3 Normal WBC 5.4 LAB L100.1200 4.2-5.4 M/mm3 Normal RBC 4.46 LAB L100.1300 12.0-15.0 g/dl Normal HGB 13.1 LAB L100.1400 37-47 % Normal HCT 40.6 LAB L100.1500 81-99 fL Normal MCV 91.0 LAB L100.1600 27.0-32.0 pg Normal MCH 29.4 LAB L100.1700 32-36 g/gl Normal MCHC 32.3 LAB L100.1810 11.6-14.6 % Normal RDW CV 14.0 LAB L100.1820 35.1-43.9 fl High RDW SD 46.0 LAB L100.1900 150-450 K/mm3 Normal PLT 226 LAB L100.2000 6.2-12.0 fl Normal MPV 8.7 LAB L100.2100 47-70 % Normal NEUT% 70.0 LAB L100.2200 19-41 % Normal LY% 23.3 LAB L100.2300 0-10 % Normal MONO% 3.9 LAB L100.2400 0-5 % Normal EO% 2.4 LAB L100.2500 0-1 % Normal BASO% 0.4 LAB L100.2550 0.0-0.9 % Normal IM GRAN % 0.000 Result Comment: IG% - Immature Granulocytes (promyelocytes, myelocytes and metamyelocytes) > 1% indicates that a LEFT SHIFT is Present. LAB L100.2620 2.0-7.7 X10 3/uL Normal Absolute Neut 3.8 LAB L100.2720 0.83-4.51 X10 3/ul Normal Absolute Lymph 1.26 Performed By: #### L100.0100 #### [facility] [address] [place], [address] COMPREHENSIVE METABOLIC Collected: 01/12/2018 Status: F Source: [facility] 8:48 AM [facility] REPOSITORY Order Comment: PLEASE COPY DR SHOEMAKER ON LABS PER PT REQUEST. [id number] Reason for Laboratory Test . TYPE CODE TESTS RESULT OUT OF RANGE REFERENCE UNITS LAB L501.0100 74-106 mg/dL High GLU 161 Result Comment: Fasting Glucose result greater than or equal to 126 mg/dL suggests DIABETES MELLITUS per A.D.A. criteria. Please note revised GLUCOSE reference range effective 2017. LAB L501.1000 7-18 mg/dL Normal BUN 16 LAB L501.1100 0.55-1.02 mg/dL Normal CREAT,SERUM 0.79 Result Comment: The validity of the calculated GFR AND GFRAA in patients over 70 years has not been determined. Clinical correlation is essential. LAB L501.1110 >60 mL/min Normal EST GFR 78 Result Comment: Non- GFR Calc LAB L501.1115 >60 mL/min Normal EST GFR - AA 94 Result Comment: GFR Calc LAB L501.1300 10-20 RATIO High BUN/CRE 20.2 LAB L501.1500 6.4-8.2 g/dL T Normal PROT 7.2 LAB L501.1800 3.2-5.0 g/dL Normal ALB 3.6 LAB L501.1950 2.2-4.2 g/dL Normal GLOB 3.6 LAB L501.2000 0.9-2.4 RATIO Normal A/G 1.0 LAB L501.2200 8.5-10.1 mg/dL CA Normal 9.2 LAB L501.4100 15-37 U/L Low AST 14 LAB L501.4305 45-117 U/L Normal ALK P 64 LAB L501.4405 13-56 U/L Normal ALT 21 LAB L501.4600 0.20-1.00 mg/dL T Normal BILI 0.70 LAB L501.5300 136-145 mmol/L NA Normal 141 LAB L501.5600 3.5-5.1 mmol/L K Normal 4.9 LAB L501.5900 98-107 mmol/L CL Normal 104 LAB L501.6100 21.0-32.0 mmol/L Normal CO2 29.0 LAB L501.6200 5-15 Normal GAP 8 Performed By: #### L500.4050 #### [facility] [address] [facility] [place], [address] HEMOGLOBIN A1C Collected: 01/12/2018 Status: F Source: [facility] 8:47 AM [facility] REPOSITORY TYPE CODE TESTS RESULT OUT OF RANGE REFERENCE UNITS LAB L501.9985 4.2-6.3 % High HGB A1C 6.6 Performed By: #### L501.9985 #### [facility] [address] [place], [address] INTERNAL MEDICINE Observed: 12/16/2017 Status: F Source: [facility] OFFICE VISIT 4:48 PM [facility] REPOSITORY [facility] [address] [place] [address] [place] [address] OFFICE VISIT Date of Service: 12/16/17 MR#: [id number] Acct: [id number] Name: CLAUDYCHIOMA M Rep #: [id number] : 1955 Provider: David Carpio NP Age/Sex: 62/F Location: [facility] Status: Signed Intake Vital Signs12/16/17 Height 5 ft 2 in 12/16/17 Weight: 200 lb 12/16/17 Body Mass Index (BMI) 36.6 12/16/17 Blood Pressure 142/76 Intake Visit Reasons: ears still clogged after being on antibiotic Chief Complaint: Ears feel clogged AND hearing loss Is patient in pain?: No Allergies cephalexin [From Keflex] Allergy (Verified 12/16/17 15:07) Unknown niacin Allergy (Verified 12/16/17 15:07) Hives penicillin V [From Pen-Vee K] Allergy (Verified 12/16/17 15:07) Hives BEES Allergy (Uncoded 12/16/17 15:07) Swelling Medications aspirin 81 mg tablet,delayed release PO 07/10/17 [History Confirmed 12/16/17] calcium citrate-vitamin D3 315 mg-250 unit tablet 1 tab PO BID 07/10/17 [History Confirmed 12/16/17] naproxen sodium 220 mg tablet 220 mg PO BID 10/20/17 [History Confirmed 12/16/17] Anastrozole [Arimidex] 1 mg PO DAILY 90 Days #90 tab 10/22/17 [Rx Confirmed 12/16/17] lisinopril 10 mg tablet 10 mg PO DAILY #90 tab 10/22/17 [Rx Confirmed 12/16/17] metformin 1,000 mg tablet 1,000 mg PO BID #180 tab 10/22/17 [Rx Confirmed 12/16/17] pioglitazone 30 mg tablet 30 mg PO DAILY #90 tab 10/22/17 [Rx Confirmed 12/16/17] simvastatin 40 mg tablet 40 mg PO QPM #90 tab 10/22/17 [Rx Confirmed 12/16/17] levofloxacin 500 mg tablet 500 mg PO QDAY #5 tab 12/16/17 [Rx Confirmed 12/16/17] [facility] Medical History Breast cancer (Acute) Diabetes (Acute) Hyperlipidemia (Acute) 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) HTN (hypertension) (Chronic) Surgical History History of lumpectomy of right breast (Acute) Family History Mother CAD (coronary artery disease) Heart disease Asthma Father CAD (coronary artery disease) Thrombocytopenia Melanoma Myocardial infarction, Onset Age: 83 Brother Suicide Grandfather Colon cancer Sister Asthma Social History Smoking Status: Never smoker alcohol intake: never substance use type: does not use what type of physical activity do you participate in: none HPI HPI Chief Complaint: Ears feel clogged AND hearing loss Details: CHIOMA LOCO, is a 62 F who presents to the office today for an acute visit of ongoing ears feeling clogged and hard of hearing. She is a past medical history as listed above. The patient was seen earlier last week and diagnosed with an upper respiratory infection, she was treated conservatively at first, however her symptoms progressed and she was placed on azithromycin 500 mg daily for 3 days. She states that she tolerated the antibiotic well, however she has persistent ear pressure and feeling that her ears are clogged with hearing loss as well. She denies any other symptoms of sore throat, fever, chills, runny nose, chest pain or pressure, syncope or presyncopal episodes. ROS Const Constitutional: No chills, fatigue, fever(s), frequent falls, malaise, weakness, sleep problems or change in appetite Eyes Eyes: No blurry vision, change in vision, double vision, discharge or visual disturbances ENT ENT: Positive for ear pain, ear pressure and hearing loss; no abnormal hearing, tinnitus or dizziness/vertigo Resp Respiratory: No cough, shortness of breath or wheezing Cardio Cardiology: No chest pain at rest, chest pain with exertion, shortness of breath, dyspnea on exertion, generalized swelling, irregular heart rhythm, lightheadedness, orthopnea, fast heart rate or palpitations Gastro GI: No abdominal pain, change in bowel habits, constipation, diarrhea, nausea/dyspepsia or vomiting Genitourinary-Female: No difficulty urinating, burning urination, painful urination, urinary incontinence, urinary frequency, urinary urgency, urinary hesitancy, urinary retention, Frequent nighttime urination/ nocturia, sexual problems, genital lesions, abnormal vaginal bleeding, pelvic pain, vaginal dryness, vaginal odor or Vaginal Itching Musc Musculoskeletal: No joint pain, back pain, joint swelling, limited range of motion, muscle weakness, numbness or tingling Skin Skin: No change in skin color, itching, rash or wounds Breast Breast: No breast lump or breast pain Neuro Neurology: No frequent falls, weakness, abnormal hearing, numbness, tingling, unsteady gait/balance, dizziness, loss of vision, memory loss or visual disturbances Psych Psychiatric: No memory loss, No anxiety, No change in appetite, No depression, No Thoughts of harming yourself/Others Endo Endocrine: No fatigue, heat intolerance, increased thirst/drinking, increased hunger or increased urination Aller/Imm Allergy/Immunologic: No wheezing, itchy eyes or seasonal allergy symptoms Shyam/Lymp Hematologic/Lymphatic: No easy bleeding, easy bruising or enlarged lymph nodes Exam Const General: cooperative, comfortable, no acute distress Nutritional Appearance: average body habitus, well nourished Orientation: alert, oriented x3 Limitations: mental status not altered HENMT Head: normal to inspection Ears: external ears normal, TM abnormal bulging (mildly) bilaterally, with fluid behind the TM (serous/yellow) bilaterally and erythematous (mildly) bilaterally Nose: external nose normal Face and sinus: normal facial exam Neck Neck: no lymphadenopathy Resp Effort AND Inspection: normal respiratory effort, able to speak in complete sentences, normal respiratory pattern, symmetric chest movement, no audible wheezes, no cough Auscultation: Bilateral: Clear to Auscultation Cardio Palpation: normal PMI Rate: regular rate Heart Sounds: S1 normal, S2 normal, normal S1 and S2, no click, no gallops, no murmurs, no rubs Musc Musculoskeletal: No muscle weakness Skin General: no rashes or lesions noted, elasticity normal, turgor normal Lesions: no lesions Rashes: no rashes Psych Appearance: grossly normal Mental Status: mental status grossly normal Affect: normal affect Attitude: cooperative Thought Process: normal Assessment AND Plan Problems 1. Acute serous otitis media of both ears H65.03 Plan Patient was previously treated with azithromycin 500 mg daily for 3 days and still having symptoms. On physical exam bilateral TMs are mildly bulging, erythematous, and serous/yellow fluid behind TMs. Will treat patient with levofloxacin 500 mg daily for 5 days. Also discussed the use of antihistamines to help with fluid accumulation and patient to continue Flonase as well. If symptoms persist, patient will need a referral to ENT. Discussed red flag symptoms that require urgent medical attention. Patient verbalized understanding. Steph disclaimer Medications New: Discontinued: Coding Level of Care Code Off vis,est,level 3 Diagnoses Acute serous otitis media of both ears H65.03 12/16/17 1648 <Electronically signed by David ANGELO> Date David ANGELO Cosigner Signature: Date (if applicable) CC: INTERNAL MEDICINE Observed: 12/08/2017 Status: F Source: [facility] OFFICE VISIT 4:29 PM [facility] [address] [place] [address] [place] [address] OFFICE VISIT Date of Service: 12/07/17 MR#: [id number] Acct: [id number] Name: CHIOMA LOCO Antonia Rep #: [id number] : 1955 Provider: Shereen Shoemaker MD Age/Sex: 62/F Location: [facility] Status: Signed Intake Vital Signs12/07/17 Height 5 ft 2 in Intake Visit Reasons: per Velvet Is patient in pain?: Yes (ears) Pain scale (1-10): 6 Allergies cephalexin [From Keflex] Allergy (Verified 10/20/17 09:20) Unknown niacin Allergy (Verified 10/20/17 09:20) Hives penicillin V [From Pen-Vee K] Allergy (Verified 10/20/17 09:20) Hives BEES Allergy (Uncoded 10/20/17 09:20) Swelling Medications aspirin 81 mg tablet,delayed release PO 07/10/17 [History Confirmed 10/20/17] calcium citrate-vitamin D3 315 mg-250 unit tablet 1 tab PO BID 07/10/17 [History Confirmed 10/20/17] naproxen sodium 220 mg tablet 220 mg PO BID 10/20/17 [History Confirmed 10/20/17] Anastrozole [Arimidex] 1 mg PO DAILY 90 Days #90 tab 10/22/17 [Rx] lisinopril 10 mg tablet 10 mg PO DAILY #90 tab 10/22/17 [Rx] metformin 1,000 mg tablet 1,000 mg PO BID #180 tab 10/22/17 [Rx] pioglitazone 30 mg tablet 30 mg PO DAILY #90 tab 10/22/17 [Rx] simvastatin 40 mg tablet 40 mg PO QPM #90 tab 10/22/17 [Rx] PFSH Medical History Breast cancer (Acute) Diabetes (Acute) Hyperlipidemia (Acute) 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) HTN (hypertension) (Chronic) Surgical History History of lumpectomy of right breast (Acute) Family History Mother CAD (coronary artery disease) Heart disease Asthma Father CAD (coronary artery disease) Thrombocytopenia Melanoma Myocardial infarction, Onset Age: 83 Brother Suicide Grandfather Colon cancer Sister Asthma Social History Smoking Status: Never smoker alcohol intake: never substance use type: does not use what type of physical activity do you participate in: none HPI HPI Details: CHIOMA LOCO, is a 62yo F who presents to the office today due to complaints of chills, muscle aches and nasal congestion. Ongoing since , symptoms are now said to be improving. She denies any known sick contact, nausea, vomiting or change in her bowel habit. ROS Const Constitutional: Positive for body ache, chills and headache(s); no weight change, fatigue, sleep problems, fever(s), change in appetite, snoring, weakness, frequent falls or excessive sweating Eyes Eyes: No change in vision, eye pain, light sensitivity or blurry vision ENT ENT: Positive for headache(s) and nasal congestion; no abnormal hearing, ear pain, tinnitus, sore throat or neck pain Resp Respiratory: Positive for cough Cough: Yes productive; no snoring, shortness of breath or wheezing Cardio Cardiology: No excessive sweating, chest pain at rest, chest pain with exertion, shortness of breath, dyspnea on exertion, palpitations, orthopnea or lightheadedness Gastro GI: No abdominal pain, change in bowel habits, constipation, diarrhea, vomiting, nausea/dyspepsia or cramping Genitourinary-Female: No burning urination, painful urination, urinary incontinence, urinary frequency, abnormal vaginal bleeding, pelvic pain or other Musc Musculoskeletal: No neck pain, abnormal walking, joint pain, back pain, limited range of motion, numbness or tingling Skin Skin: No redness, dry skin, itching, lesions, wounds or rash Neuro Neurology: Positive for headache(s); no weakness, frequent falls, abnormal hearing, abnormal walking, numbness, tingling, abnormal speech, dizziness or memory loss Psych Psychiatric: No change in appetite, No memory loss, No anxiety, No depression, No Thoughts of harming yourself/Others Endo Endocrine: No fatigue, excessive sweating, cold intolerance, increased thirst/drinking, heat intolerance, flushing or increased hunger Aller/Imm Allergy/Immunologic: No wheezing, itchy eyes, hives or seasonal allergy symptoms Shyam/Lymp Hematologic/Lymphatic: No easy bleeding, easy bruising or enlarged lymph nodes Exam Const General: cooperative, no acute distress Orientation: alert, awake, oriented x3 HENMT Head: atraumatic, normocephalic Ears: hearing grossly normal bilaterally, TM's normal bilaterally Mouth: oral mucosae normal, oropharynx normal Throat: posterior oropharynx normal, tonsils normal Resp Effort AND Inspection: normal respiratory effort, able to speak in complete sentences Auscultation: Bilateral: Clear to Auscultation Cardio Rate: regular rate Rhythm: regular rhythm Heart Sounds: S1 normal, S2 normal GI Palpation: soft, no hepatosplenomegaly Neuro General: alert, awake, oriented x3, CN's II-XI intact bilaterally, moves all extremities Extrem General: no clubbing, cyanosis or edema Psych Appearance: grossly normal Mood: congruent mood Affect: normal affect Assessment AND Plan 1. Upper respiratory infection J06.9 Plan Most likely viral. Now said to resolving somewhat. Vitals are stable. Rest, increased fluids, tylenol/ibuprofen, Flonase, mucinex and airborne supplements recommended. Advised to call the office in 3 days if no significant improvement. This note was generated with [employer] dictation software. It may contain incorrect words, spelling, and punctuation that were not noted in checking the note before signing. Coding Level of Care Code Off vis,est,level 3 Diagnoses Upper respiratory infection J06.9 12/08/17 9732 <Electronically signed by Shereen Shoemaker MD> Date Shereen Shoemaker MD Cosigner Signature: Date (if applicable) CC: DOWNTIME REPORT Observed: 11/19/2017 Status: F Source: [facility] 12:26 PM [facility] Medical Records Department [address] [place] [address] Downtime Report MR#: [id number] Acct: [id number] Name: CHIOMA LOCO Rep #: [id number] : 1955 62 From: Elie Sinha PCP: Shereen Shoemaker MD Status: REG CLI This patient was seen during an EMR downtime November 02, 2017 - November 09, 2017. This patient may have a combination of paper and electronic documentation or all paper documentation. All documentation is viewable within the e-chart portion of [facility] for each patient visit. SCREENING MAMM (CAD), Observed: 11/06/2017 Status: F Source: [facility] B[facility] 9:35 AM [facility] Imaging Services [address] [place] [address] SCREENING MAMM (CAD), BILAT MR#: [id number] Acct: [id number] Name: CHIOMA LOCO Rep #: [id number] : 1955 F 62 From: Hali Patel MD PCP: Shereen Shoemaker MD Status: REG CLI Study: SCREENING MAMM (CAD), BILAT Date of Exam: 11/03/17 Exam# [id number] Ordering Dr: Frances Bolivar MD MAMMOGRAPHY - BILATERAL SCREENING REASON FOR EXAM: Female, 62 years old. Routine annual screening examination. PERTINENT HISTORY: PERSONAL HX @ AGE 59 - RT LUMPECTOMY 2015 - CURRENT ESTROEN KIRK x 3 YRS TECHNIQUE: Digital bilateral breast nikki (3D mammographic acquisition) in the CC and MLO projections. 2-D mediolateral oblique (MLO) and craniocaudad (CC) views of both breasts were obtained. CAD: Full Field Digital Mammography with Computer Added Detection was performed. COMPARISON: 11/11/2016, 05/29/2016, 11/06/2015, 05/17/2015. FINDINGS: Breast Composition: The breasts are heterogeneously dense, which may obscure small masses. There are no dominant masses or suspicious calcifications. There is a scar in the right breast at the lumpectomy site appears unchanged since the previous studies. No other significant abnormalities are identified. BI/SCREENING MAMM (CAD), BILAT IMPRESSION: Stable bilateral screening mammogram. Yearly follow-up mammogram recommended. (A) ASSESSMENT CATEGORY: BIRADS Category 2: Benign. A letter regarding these results will be sent to the patient by the facility within 30 days. Approximately 10% of breast cancers are not detected by mammography. A normal mammogram should not delay biopsy of a clinically suspicious abnormality. [id number] Electronically Signed: Hali Patel MD at 15:48 EDT Tel , Service support , CC: Shereen Shoemaker MD; Frances Bolivar MD C T Tech: Signed INTERNAL MEDICINE Observed: 10/20/2017 Status: F Source: [facility] OFFICE VISIT 4:48 PM [facility] [address] [place] [address] [place] [address] OFFICE VISIT Date of Service: 10/20/17 MR#: [id number] Acct: [id number] Name: CHIOMA LOCO Rep #: [id number] : 1955 Provider: Shereen Shoemaker MD Age/Sex: 62/F Location: [facility] Status: Signed Intake Vital Signs10/20/17 Height 5 ft 2 in 10/20/17 Weight: 197 lb 10/20/17 Body Mass Index (BMI) 36.0 10/20/17 Blood Pressure 117/65 Intake Visit Reasons: 2 WK FU Chief Complaint: 2 week follow-up - go over BW Is patient in pain?: No Allergies cephalexin [From Keflex] Allergy (Verified 10/20/17 09:20) Unknown niacin Allergy (Verified 10/20/17 09:20) Hives penicillin V [From Pen-Vee K] Allergy (Verified 10/20/17 09:20) Hives BEES Allergy (Uncoded 10/20/17 09:20) Swelling Medications aspirin 81 mg tablet,delayed release PO 07/10/17 [History Confirmed 10/20/17] calcium citrate-vitamin D3 315 mg-250 unit tablet 1 tab PO BID 07/10/17 [History Confirmed 10/20/17] lisinopril 10 mg tablet 10 mg PO DAILY #90 tab 08/07/17 [Rx Confirmed 10/20/17] simvastatin 40 mg tablet 40 mg PO QPM #90 tab 08/07/17 [Rx Confirmed 10/20/17] Anastrozole [Arimidex] 1 mg PO DAILY 30 Days #30 tab 08/28/17 [Rx Confirmed 10/20/17] metformin 1,000 mg tablet 1,000 mg PO BID #180 tab 08/31/17 [Rx Confirmed 10/20/17] pioglitazone 30 mg tablet 30 mg PO DAILY tab 10/06/17 [History Confirmed 10/20/17] naproxen sodium 220 mg tablet 220 mg PO BID 10/20/17 [History Confirmed 10/20/17] PFSH Medical History Breast cancer (Acute) Diabetes (Acute) Hyperlipidemia (Acute) 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) HTN (hypertension) (Chronic) Surgical History History of lumpectomy of right breast (Acute) Family History Mother CAD (coronary artery disease) Heart disease Asthma Father CAD (coronary artery disease) Thrombocytopenia Melanoma Myocardial infarction, Onset Age: 83 Brother Suicide Grandfather Colon cancer Sister Asthma Social History Smoking Status: Never smoker alcohol intake: never substance use type: does not use what type of physical activity do you participate in: none HPI HPI Chief Complaint: 2 week follow-up - go over BW Details: CHIOMA LOCO, is a 62yo F who presents to the office today for follow of of bilateral hand pain. she feels much better today and denies any complaints at this time. ROS Const Constitutional: No chills, fatigue, fever(s), frequent falls, malaise, weakness, sleep problems or change in appetite Eyes Eyes: No blurry vision, change in vision, double vision, discharge or visual disturbances ENT ENT: No abnormal hearing, ear pain, ear pressure, tinnitus or dizziness/vertigo Resp Respiratory: No cough, shortness of breath or wheezing Cardio Cardiology: No chest pain at rest, chest pain with exertion, shortness of breath, dyspnea on exertion, generalized swelling, irregular heart rhythm, lightheadedness, orthopnea, fast heart rate or palpitations Gastro GI: No abdominal pain, change in bowel habits, constipation, diarrhea, nausea/dyspepsia or vomiting Genitourinary-Female: No difficulty urinating, burning urination, painful urination, urinary incontinence, urinary frequency, urinary urgency, urinary hesitancy, urinary retention, Frequent nighttime urination/ nocturia, sexual problems, genital lesions, abnormal vaginal bleeding, pelvic pain, vaginal dryness, vaginal odor or Vaginal Itching Musc Musculoskeletal: No joint pain, back pain, joint swelling, limited range of motion, numbness or tingling Skin Skin: No change in skin color, itching, rash or wounds Breast Breast: No breast lump or breast pain Neuro Neurology: No frequent falls, weakness, abnormal hearing, numbness, tingling, unsteady gait/balance, dizziness, loss of vision, memory loss or visual disturbances Psych Psychiatric: No memory loss, No anxiety, No change in appetite, No depression, No Thoughts of harming yourself/Others Endo Endocrine: No fatigue, heat intolerance, increased thirst/drinking, increased hunger or increased urination Aller/Imm Allergy/Immunologic: No wheezing, itchy eyes or seasonal allergy symptoms Shyam/Lymp Hematologic/Lymphatic: No easy bleeding, easy bruising or enlarged lymph nodes Exam Const General: cooperative, no acute distress Orientation: alert, awake, oriented x3 HENMT Head: atraumatic, normocephalic Ears: hearing grossly normal bilaterally Resp Effort AND Inspection: normal respiratory effort, able to speak in complete sentences Auscultation: Bilateral: Clear to Auscultation Cardio Rate: regular rate Rhythm: regular rhythm Heart Sounds: S1 normal, S2 normal GI Palpation: soft, no hepatosplenomegaly Neuro General: alert, awake, oriented x3, CN's II-XI intact bilaterally, moves all extremities Extrem General: no clubbing, cyanosis or edema Psych Appearance: grossly normal Mood: congruent mood Affect: normal affect Assessment AND Plan 1. Arthritis M19.90 Plan Bilateral hand osteoarthritis. Investigations not suggestive of RA. Has done very well on Naproxen. Continue current medications. Side effects discussed. Advised on increased fluid intake, optimal blood sugar control and to take with food. Follow up in 3 months. 2. Type 2 diabetes mellitus E11.9 Plan Stable. Continue current medication. A1C in October. Plan Detail Other Medications Discontinued: Follow Up 3 Months Coding Level of Care Code Off vis,est,level 3 Diagnoses Arthritis M19.90 Type 2 diabetes mellitus E11.9 10/20/17 1648 <Electronically signed by Shereen Shoemaker MD> Date Shereen Shoemaker MD Cosigner Signature: Date (if applicable) CC: INTERNAL MEDICINE Observed: 10/06/2017 Status: F Source: [facility] OFFICE VISIT 3:27 PM [facility] [address] [place] [address] [place] [address] OFFICE VISIT Date of Service: 10/06/17 MR#: [id number] Acct: [id number] Name: CLAUDYCHIOMA Antonia Rep #: [id number] : 1955 Provider: Shereen Shoemaker MD Age/Sex: 62/F Location: [facility] Status: Signed Intake Vital Signs10/06/17 Body Mass Index (BMI) 36.2 10/06/17 Blood Pressure 114/73 10/06/17 Height 5 ft 2 in Intake Visit Reasons: 3 MO Chief Complaint: 3 month follow-up Is patient in pain?: Yes (shakiness in right arm, and some joint pain in hands) Pain scale (1-10): 3 Allergies cephalexin [From Keflex] Allergy (Verified 06/09/17 11:01) Unknown niacin Allergy (Verified 06/09/17 11:01) Hives penicillin V [From Pen-Vee K] Allergy (Verified 06/09/17 11:01) Hives BEES Allergy (Uncoded 06/09/17 11:01) Swelling Medications aspirin 81 mg tablet,delayed release PO 07/10/17 [History Confirmed 07/10/17] calcium citrate-vitamin D3 315 mg-250 unit tablet 1 tab PO BID 07/10/17 [History Confirmed 07/10/17] lisinopril 10 mg tablet 10 mg PO DAILY #90 tab 08/07/17 [Rx Confirmed 08/07/17] simvastatin 40 mg tablet 40 mg PO QPM #90 tab 08/07/17 [Rx Confirmed 08/07/17] Anastrozole [Arimidex] 1 mg PO DAILY 30 Days #30 tab 08/28/17 [Rx] metformin 1,000 mg tablet 1,000 mg PO BID #180 tab 08/31/17 [Rx] pioglitazone 30 mg tablet 30 mg PO DAILY tab 10/06/17 [History] PFSH Medical History Breast cancer (Acute) Diabetes (Acute) Hyperlipidemia (Acute) 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) HTN (hypertension) (Chronic) Surgical History History of lumpectomy of right breast (Acute) Family History Mother CAD (coronary artery disease) Heart disease Asthma Father CAD (coronary artery disease) Thrombocytopenia Melanoma Myocardial infarction, Onset Age: 83 Brother Suicide Grandfather Colon cancer Sister Asthma Social History Smoking Status: Never smoker alcohol intake: never substance use type: does not use what type of physical activity do you participate in: none HPI HPI Chief Complaint: 3 month follow-up Details: CHIOMASIRISHA LOCO, is a 62yo F who presents to the office today for follow up. She also has some complaints. She reports stiffness and swelling of her hands which is said to be worse in the morning and relieved as the day progresses. She denies any prior history or known family history of rheumatoid arthritis. ROS Const Constitutional: No weight change, body ache, chills, fatigue, sleep problems, fever(s), change in appetite, snoring, weakness, frequent falls, headache(s) or excessive sweating Eyes Eyes: No change in vision, eye pain, light sensitivity or blurry vision ENT ENT: No headache(s), abnormal hearing, ear pain, tinnitus, nasal congestion, sore throat or neck pain Resp Respiratory: No snoring, cough, shortness of breath or wheezing Cardio Cardiology: No excessive sweating, chest pain at rest, chest pain with exertion, shortness of breath, dyspnea on exertion, palpitations, orthopnea or lightheadedness Gastro GI: No abdominal pain, change in bowel habits, constipation, diarrhea, vomiting, nausea/dyspepsia or cramping Genitourinary-Female: No burning urination, painful urination, urinary incontinence, urinary frequency, abnormal vaginal bleeding, pelvic pain or other Musc Musculoskeletal: Positive for joint pain (hands) and tingling (right arm); no neck pain, abnormal walking, back pain, limited range of motion or numbness Skin Skin: No redness, dry skin, itching, lesions, wounds or rash Neuro Neurology: Positive for tingling (right arm); no weakness, frequent falls, headache(s), abnormal hearing, abnormal walking, numbness, abnormal speech, dizziness or memory loss Psych Psychiatric: No change in appetite, No memory loss, No anxiety, No depression, No Thoughts of harming yourself/Others Endo Endocrine: No fatigue, excessive sweating, cold intolerance, increased thirst/drinking, heat intolerance, flushing or increased hunger Aller/Imm Allergy/Immunologic: No wheezing, itchy eyes, hives or seasonal allergy symptoms Shyam/Lymp Hematologic/Lymphatic: No easy bleeding, easy bruising or enlarged lymph nodes Exam Const General: cooperative, no acute distress Orientation: alert, awake, oriented x3 HENMT Head: atraumatic, normocephalic Ears: hearing grossly normal bilaterally Resp Effort AND Inspection: normal respiratory effort, able to speak in complete sentences Auscultation: Bilateral: Clear to Auscultation Cardio Rate: regular rate Rhythm: regular rhythm Heart Sounds: S1 normal, S2 normal GI Palpation: soft, no hepatosplenomegaly Neuro General: alert, awake, oriented x3, CN's II-XI intact bilaterally, moves all extremities Extrem General: no clubbing, cyanosis or edema Other: Mild tenderness and swelling of the DIP and PIP joints of both hand however more on the right. No limitation of movement or erythema. Psych Appearance: grossly normal Mood: congruent mood Affect: normal affect Assessment AND Plan 1. Arthritis M19.90 Plan Bilateral hand swelling and stiffness for month. Typically in the morning with symptoms improving after hours. No known history of RA. Labs ordered. Aleve 220mg QPM Follow up in 2 weeks. Orders Orders: 2. Type 2 diabetes mellitus E11.9 Plan Mild increase in A1C noted at last check. Pioglitazone increased. Patient is tolerating new dose. A1C in 1 month. Orders Orders: Referrals: 3. Cancer of right female breast C50.911 Plan Stable. Follows up with oncology. Scheduled for a repeat mammogram in October. Will follow. 4. Hyperlipidemia E78.5 Plan Stable. last lipid profile within normal. Continue simvastatin and life style modifications. This note was generated with [employer] dictation software. It may contain incorrect words, spelling, and punctuation that were not noted in checking the note before signing. Plan Detail Follow Up 2 Weeks Coding Level of Care Code Off vis,est,level 4 Diagnoses Arthritis M19.90 Type 2 diabetes mellitus E11.9 Cancer of right female breast C50.911 Hyperlipidemia E78.5 10/06/17 1527 <Electronically signed by Shereen Shoemaker MD> Date Shereen Shoemaker MD Cosigner Signature: Date (if applicable) CC: RHEUMATOID FACTOR Collected: 10/06/2017 Status: F Source: [facility] 10:01 AM [facility] REPOSITORY TYPE CODE TESTS RESULT OUT OF RANGE REFERENCE UNITS LAB L505.7010 <15 IU/mL Normal RHEUMATOID FAC < 10.0 Performed By: #### L505.7010 #### [facility] [address] [place], [place], [address] ALON W/ REFLEX MULT Collected: 10/06/2017 Status: F Source: [facility] CONFIRM 10:01 AM [facility] REPOSITORY TYPE CODE TESTS RESULT OUT OF RANGE REFERENCE UNITS LAB L3100.5475 Negative Normal Negative ALON-DIRECT Result Comment: Performed at: - [facility] [id number] Gender Studies Professor: Jerel Gonsalves PhD, Phone: [phone] Performed By: #### L3100.5450 #### [facility] (refer to report for specific site) refer to report for address and phone number HEMOGLOBIN A1C Collected: 08/04/2017 Status: F Source: [facility] 9:11 AM [facility] REPOSITORY TYPE CODE TESTS RESULT OUT OF RANGE REFERENCE UNITS LAB L501.9985 4.2-6.3 % High HGB A1C 7.0 Performed By: #### L501.9985, L500.4050, L500.4100 #### [facility] [address] [place], [place], [address] COMPREHENSIVE METABOLIC Collected: 08/04/2017 Status: F Source: [facility] PROFIL 9:11 AM [facility] REPOSITORY TYPE CODE TESTS RESULT OUT OF RANGE REFERENCE UNITS LAB L501.0100 74-106 mg/dL High GLU 158 Result Comment: Fasting Glucose result greater than or equal to 126 mg/dL suggests DIABETES MELLITUS per A.D.A. criteria. Please note revised GLUCOSE reference range effective 2017. LAB L501.1000 7-18 mg/dL Normal BUN 14 LAB L501.1100 0.55-1.02 mg/dL Normal CREAT,SERUM 0.70 Result Comment: The validity of the calculated GFR AND GFRAA in patients over 70 years has not been determined. Clinical correlation is essential. LAB L501.1110 >60 mL/min Normal EST GFR 89 Result Comment: Non- GFR Calc LAB L501.1115 >60 mL/min Normal EST GFR - AA 108 Result Comment: GFR Calc LAB L501.1300 10-20 RATIO Normal BUN/CRE 19.9 LAB L501.1500 6.4-8.2 g/dL T Normal PROT 7.3 LAB L501.1800 3.2-5.0 g/dL Normal ALB 3.7 LAB L501.1950 2.2-4.2 g/dL Normal GLOB 3.6 LAB L501.2000 0.9-2.4 RATIO Normal A/G 1.0 LAB L501.2200 8.5-10.1 mg/dL CA Normal 9.2 LAB L501.4100 15-37 U/L Low AST 13 LAB L501.4305 45-117 U/L Normal ALK P 116 LAB L501.4405 13-56 U/L Normal ALT 21 Result Comment: Please note revised ALT reference range effective 2017. LAB L501.4600 0.20-1.00 mg/dL Normal T BILI 0.60 LAB L501.5300 136-145 mmol/L Normal NA 140 LAB L501.5600 3.5-5.1 mmol/L Normal K 4.1 LAB L501.5900 98-107 mmol/L Normal CL 105 LAB L501.6100 21.0-32.0 mmol/L Normal CO2 27.0 LAB L501.6200 5-15 Normal GAP 8 Performed By: #### L501.9985, L500.4050, L500.4100 #### [facility] [address] [place], [address] LIPID PROFILE Collected: 08/04/2017 Status: F Source: [facility] 9:11 AM [facility] REPOSITORY TYPE CODE TESTS RESULT OUT OF RANGE REFERENCE UNITS LAB L501.4900 200 mg/dL Normal CHOL 145 Result Comment: <200 mg/dL Desirable 200-240 mg/dL Borderline >240 mg/dL High Risk LAB L501.5000 mg/dL Normal TRIG 114 Result Comment: The drugs N-Acetylcysteine and Metamizole may falsely depress this assay. Serum Triglycerides Reference Interval Normal <150 mg/dL Borderline high 150 - 199 mg/dL High 200 - 499 mg/dL Very High > or = 500 mg/dL LAB L501.6400 mg/dL Normal HDL 59 Result Comment: The drugs N-Acetylcysteine and Metamizole may falsely depress this assay. Reference Range HDL <40 mg/dL Low HDL Cholesterol HDL >or= 60 mg/dL High HDL Cholesterol LAB L501.6500 0-130 mg/dL Normal LDL 63 LAB L501.6600 5-40 mg/dL Normal VLDL 23 Performed By: #### L501.9985, L500.4050, L500.4100 #### [facility] [address] [place], [address] MICROALB:CREAT Collected: 08/04/2017 Status: F Source: [facility] RATIO,RANDOM UR 9:11 AM [facility] REPOSITORY TYPE CODE TESTS RESULT OUT OF RANGE REFERENCE UNITS LAB L501.1200 NO RANGE EST. mg/dL Normal UR CREAT 96.00 LAB L502.0500 NO RANGE EST. mg/L Normal 10.4 MICROALBUMIN ,UR LAB L502.0600 <30 mg/g CRE mg/g CRE Normal 10.8 MALB:CREAT Performed By: #### L502.0250 #### [facility] [address] [place], [place], [address] VITAMIN D,25 HYDROXY Collected: 08/04/2017 Status: F Source: [facility] 9:11 AM [facility] REPOSITORY TYPE CODE TESTS RESULT OUT OF REFERENCE UNITS RANGE LAB L506.1000 29.95-100.01 ng/mL Low Vitamin D 27.5 25-OH Result Comment: Vitamin D 25(OH) Status Range Deficiency <20 ng/mL (50nmol/L) Insuffciency 20 - 30 ng/mL (50 - 75 nmol/L) Sufficiency 30 - 100 ng/mL (75 - 250 nmol/L) Toxicity >100 ng/mL (>250 nmol/L) Performed By: #### L506.1000 #### [facility] [address] [place], [address] INTERNAL MEDICINE Observed: 07/10/2017 Status: F Source: [facility] OFFICE VISIT 1:28 PM [facility] REPOSITORY [facility] [address] [place] [address] OFFICE VISIT Date of Service: 07/10/17 MR#: [id number] Acct: [id number] Name: CHIOMA LOCO Rep #: [id number] : 1955 Provider: Shereen Shoemaker MD Age/Sex: 62/F Location: [facility] Status: Signed Intake Vital Signs07/10/17 Height 5 ft 2 in Intake Visit Reasons: REFILLS/NEW TO AREA Chief Complaint: establish care Is patient in pain?: No Allergies cephalexin [From Keflex] Allergy (Verified 06/09/17 11:01) Unknown niacin Allergy (Verified 06/09/17 11:01) Hives penicillin V [From Pen-Vee K] Allergy (Verified 06/09/17 11:01) Hives BEES Allergy (Uncoded 06/09/17 11:01) Swelling Medications Anastrozole [Arimidex] 1 mg PO DAILY 05/22/17 [History Confirmed 07/10/17] Metformin HCl [Glucophage] 500 mg PO DAILY 05/22/17 [History Confirmed 07/10/17] aspirin 81 mg tablet,delayed release PO 07/10/17 [History Confirmed 07/10/17] calcium citrate-vitamin D3 315 mg-250 unit tablet 1 tab PO BID 07/10/17 [History Confirmed 07/10/17] lisinopril 10 mg tablet 10 mg PO DAILY #30 tab 07/10/17 [Rx Confirmed 07/10/17] pioglitazone 15 mg tablet 15 mg PO DAILY #30 tab 07/10/17 [Rx Confirmed 07/10/17] simvastatin 40 mg tablet 40 mg PO QPM #30 tab 07/10/17 [Rx] PFSH Medical History Breast cancer (Acute) Diabetes (Acute) Hyperlipidemia (Acute) 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) HTN (hypertension) (Chronic) Surgical History History of lumpectomy of right breast (Acute) Family History Mother CAD (coronary artery disease) Heart disease Asthma Father CAD (coronary artery disease) Thrombocytopenia Melanoma Myocardial infarction, Onset Age: 83 Brother Suicide Grandfather Colon cancer Sister Asthma Social History Smoking Status: Never smoker alcohol intake: never substance use type: does not use what type of physical activity do you participate in: none HPI HPI Chief Complaint: establish care Details: CHIOMA LOCO, is a 62yo F who presents to the office today to establish care. She has a past medical history of hypertension, hyperlipidemia, diabetes mellitus type 2 pat-jzopaxs-ysvieeyia and breast Cancer status post lumpectomy and radiotherapy. She currently follows up with the oncology group. She has no acute complaints at this time. Last A1c per patient was 6.3 and she typically ranges around this. She is currently on metformin and pioglitazone. She reports compliance with her medications. Blood pressure in office today is also optimally controlled at 114/73 mmHg. She is currently on lisinopril 10 mg daily. She is on 40 mg of simvastatin. She cannot remember her numbers, but states that her last lipid profile was within normal. She also is on Prolia due to her history of osteopenia. She currently takes calcium and vitamin D supplements daily however is unsure of the dose. She has no history of fractures. ROS Const Constitutional: No weight change, body ache, chills, fatigue, sleep problems, fever(s), change in appetite, snoring, weakness, frequent falls, headache(s) or excessive sweating Eyes Eyes: No change in vision, eye pain, light sensitivity or blurry vision ENT ENT: No headache(s), abnormal hearing, ear pain, tinnitus, nasal congestion, sore throat or neck pain Resp Respiratory: No snoring, cough, shortness of breath or wheezing Cardio Cardiology: No excessive sweating, chest pain at rest, chest pain with exertion, shortness of breath, dyspnea on exertion, palpitations, orthopnea or lightheadedness Gastro GI: No abdominal pain, change in bowel habits, constipation, diarrhea, vomiting, nausea/dyspepsia or cramping Musc Musculoskeletal: No neck pain, abnormal walking, joint pain, back pain, limited range of motion, numbness or tingling Skin Skin: No redness, dry skin, itching, lesions, wounds or rash Neuro Neurology: No weakness, frequent falls, headache(s), abnormal hearing, abnormal walking, numbness, tingling, abnormal speech, dizziness or memory loss Psych Psychiatric: No change in appetite, No memory loss, No anxiety, No depression, No Thoughts of harming yourself/Others Endo Endocrine: No fatigue, excessive sweating, cold intolerance, increased thirst/drinking, heat intolerance, flushing or increased hunger Aller/Imm Allergy/Immunologic: No wheezing, itchy eyes, hives or seasonal allergy symptoms Shyam/Lymp Hematologic/Lymphatic: No easy bleeding, easy bruising or enlarged lymph nodes Exam Const General: cooperative, no acute distress Orientation: alert, awake, oriented x3 HENMT Head: normal to inspection, normocephalic, atraumatic Ears: TM's normal bilaterally Eyes Conjunctivae: conjunctivae normal Pupils: PERRL Resp Effort AND Inspection: normal respiratory effort, able to speak in complete sentences Auscultation: Bilateral: Clear to Auscultation Cardio Rate: regular rate Rhythm: regular rhythm Heart Sounds: S1 normal, S2 normal GI Palpation: soft, no hepatosplenomegaly Neuro General: alert, awake, oriented x3, CN's II-XI intact bilaterally, moves all extremities Extrem General: no clubbing, cyanosis or edema Psych Appearance: grossly normal Mental Status: mental status grossly normal Affect: normal affect Attitude: cooperative Assessment AND Plan 1. Type 2 diabetes mellitus E11.9 Plan Well-controlled per patient. Last A1c was 6.3. Currently on metformin and pioglitazone which she reports compliance with. Will get an A1c today. Will also order a urine microalbumin creatinine ratio. Continue current medication. Follow-up with results. Orders Orders: Referrals: 2. Hypertension I10 Plan Optimally controlled. Currently on lisinopril 10 mg daily. Continue current medication. Continue lifestyle modification. Follow-up at next visit. 3. Hyperlipidemia E78.5 Plan Patient states that this has been well controlled. Currently on simvastatin 40 mg nightly. Continue current management. Lipid profile and CMP ordered. Follow-up with results. Orders Orders: 4. Osteopenia M85.80 Plan Secondary to chemotherapy. Currently on Prolia which she gets via her oncologist. She is unsure of her dose of calcium and vitamin D. We will get a vitamin D level. Continue current medications, will adjust if needed. This note was generated with [employer] software. It may contain incorrect words, spelling, and punctuation that were not noted in checking the note before signing. Orders Orders: Plan Detail Other Medications New: Discontinued: Coding Level of Care Code Off vis,new,level 3 Diagnoses Type 2 diabetes mellitus E11.9 Hypertension I10 Hyperlipidemia E78.5 Osteopenia M85.80 07/10/17 1328 <Electronically signed by Shereen Shoemaker MD> Date Shereen Shoemaker MD Cosigner Signature: Date (if applicable) CC: HISTORY AND PHYSICAL Observed: 06/09/2017 Status: F Source: [facility] EXAM 12:24 PM [facility] REPOSITORY [facility] Medical Records Department [address] [place] [address] History and Physical 06/09/17 1207 MR#: [id number] Acct: [id number] Name: CHIOMA LOCO Rep #: [id number] : 1955 62 From: Frances Bolivar MD PCP: Care Physician, No Primary Status: REG RCR Y Location: OMD (1) Cancer of right female breast Status: Chronic (2) Osteopenia Status: Chronic Subjective Date of Service:: 06/09/17 Chief Complaint: Breast cancer, transferring care History of Present Illness: Patient is a 62-year-old female who recently moved to [place] from [place]. She was diagnosed with right breast cancer on routine mammography in early 2014. A biopsy confirmed an invasive lobular cancer. On July 19, 2014 she underwent partial mastectomy with sentinel lymph node biopsy that revealed an invasive lobular carcinoma single focus maximum tumor size was 3 cm and no metastases and sentinel lymph node biopsies. LCIS was noted on the resected tissue overall tumor grade was 2, ER positive, RI positive, HER-2 not overexpressed and Oncotype DX was a low risk for recurrent disease. She received adjuvant radiation therapy and was started on adjuvant hormonal therapy with Arimidex in the spring 2014 which she tolerated well. Bone density showed osteopenia and she was started on Prolia last received October 2016. She is compliant with vitamin D calcium supplementation also. Her last mammogram was in October 2016 to her knowledge showed no abnormalities. She does breast self exam regularly and her last breast exam by MD was in October 2016. No She has comorbid hypertension, diabetes, dyslipidemia and overweight. She has no first-degree relatives with breast cancers and genetic testing was not done in [place] Health History: Cancer History Cancer: Breast cancer Social History Smoking Status Never smoker Allergies/Adverse Reactions: Allergy/AdvReac Type Severity Reaction Status Date / Time cephalexin [From Keflex] Allergy Unknown Verified 06/09/17 11:01 Home Medications Medication Instructions Recorded Anastrozole [Arimidex] 1 mg PO DAILY 05/22/17 Aspirin 325 mg PO DAILY@0800 05/22/17 Risk Factors Tobacco Risk Data: Tobacco Risk Smoking Status Never smoker Type of tobacco: Smokeless tobacco usage: Items/Day: Year started: Years used: Counseled to quit/cut down: Reason for no counseling performed: Reason for no pharmacotherapy: Tobacco use comments: Passive smoke exposure: Substance Risk Drug use: Caffeine use [drinks/day]: Alcohol use: Type of alcohol: Drinks per day: Has patient felt the need to cut down: Has the patient been annoyed by complaints: Has the patient felt guilty about drinking: Has the patient needed an 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 administrative medical director in the mornings: Comments: Review of Systems Constitutional:: Denies: Fever, Sweats, Weight loss, Appetite change, Chills Cardiovascular:: Denies: Chest pain, Palpitations, Dyspnea on exertion, Orthopnea, PND, Shortness of breath Respiratory: Denies: Cough, Hemoptysis, Shortness of Breath, Wheezing Gastrointestinal:: Denies: Abdominal pain, Nausea, Vomiting, Diarrhea, Constipation, Hematochezia Genitourinary: Denies: Dysuria, Hematuria, 15, Flank pain Musculoskeletal:: Denies: Back pain, Myalgia, Arthralgia Skin: Denies: Rash, Skin Changes, Wounds Neurological:: Denies: Headache, Dizziness, Visual changes, Tinnitus, Hearing loss Psychiatric: Denies: Anxiety, Depression, Homicidal Ideations, Suicidal Ideations Comment: Unaware of any breast lumps and had physical by MD in October 2016 Vital Signs Height 5 ft 2.6 in Weight: 90.265 kg Weight in Pounds 199.0 lbs Pulse Ox 97 - Physical Exam General: Alert, Oriented x3, No apparent distress, - - Overweight HEENT: Atraumatic, PERRLA, EOMI, Normocephalic Oropharynx:: Dry mucosa Neck:: Supple, Trachea midline. Negative for: JVD, bilateral Cardiac:: Regular rate, Regular rhythm, Normal S1, Normal S2. Negative for: Murmur Lungs: Clear to auscultation, Excusion symmetrical. Negative for: Rhonchi, Wheezes Abdomen:: Bowel sounds x 4, Soft, Non-tender, Non-distended. Negative for: Hepatosplenomegaly Extremities:: Negative for: Cyanosis, Edema Neurological: Neuro grossly intact Skin:: Negative for: Lesions, Rash, Petechiae, Ecchymosis Psychiatric:: Appropriate affect, Euthymic Lymphatics:: Negative for: Cervical lymphadenopathy, Supraclavicular lymphadenopathy, Axillary lymphadenopathy Breast:: - - Deferred due to exam and less than 1 year (October 2016) Diagnostic Data: There were no recent mammogram or bone density studies reports available to review. Patient believed her last mammogram was October 2016 showed no abnormality Pathology Data: Outside pathology report from 2014 reviewed and to be scanned into EMR Assessment and Plan 62-year-old female with stage IIa (T1, N0, M0) invasive lobular carcinoma of the right breast. 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 Patient is status post partial mastectomy with sentinel lymph node biopsy in July 2014 followed by adjuvant radiation. She has been on adjuvant Arimidex therapy since the spring 2014 she tolerates it well without any excessive toxicities. At this time there is no evidence to suggest cancer recurrence. Advised to continue adjuvant hormonal therapy at least 5 years. She will be due for her annual screening mammogram in October 2017 ( as per patient). She is due for Prolia every 6 months but until she establishes insurance coverage in [place] she would like to put that on hold and will call us once she has insurance coverage since she is self-pay at this time. Instructed to continue with oral supplementation of calcium and vitamin D. She stated she had enough Arimidex at least for the near future will call when she is in need of refills. Breast self-exam monthly and exam by MD annual. Medications: Prescriptions This Visit Medication Instructions Recorded Anastrozole [Arimidex] 1 mg PO DAILY 05/22/17 Aspirin 325 mg PO DAILY@0800 05/22/17 Primary Care Provider: No Primary Care Phys Referring Provider: Frances Bolivar MD 06/09/17 [id number] <Electronically signed by Frances Bolivar MD> Date Frances Bolivar MD Cosigner Signature: Date (if applicable) CC: No Primary Care Physician; Frances Bolivar MD Signed ALLERGIES ALLERGIES DATE TYPE / CODE NAME / CODE REACTION SEVERITY SOURCE 02/08/2018 Drug niacin/[id number] Hives [place] [facility] Allergy/713981169(S 52(RXNORM) [facility] Repository 02/08/2018 Drug penicillin Hives [facility] Allergy/870076363(S V/[id number](RX [facility] NORM) Hospital Repository 02/08/2018 Drug cephalexin/F006 Rash [place] [facility] Allergy/254733554(S 719483(RXNORM) [facility] CT) Hospital Repository 02/08/2018 Miscellaneous BEES Swelling [facility] Allergy/693884799(S [facility] NOMED CT) Hospital Repository ENCOUNTERS ENCOUNTERS ADMIT/DISCHARGE ACCOUNT ADMITTING ENCOUNTER LOCATION SOURCE NUMBER CLASS 05/10/2018/ [id number] Ambulatory BMSBuilding:B [facility] 8 8 [place] Repository 05/03/2018 [id number] Ambulatory [facility] 8 [facility] ing:LAB Repository 03/15/2018/ [id number] Ambulatory BMSBuilding:B [facility] 8 0 [place] Repository 02/08/2018 [id number] Ambulatory [facility] 8 [facility] Hospital ing:OMD Repository 02/08/2018 [id number] Ambulatory BMSBuilding:B [facility] 7 [facility] Repository 01/18/2018/ [id number] Ambulatory BMSBuilding:B [facility] 8 9 [place] Repository 01/12/2018 [id number] Ambulatory [facility] 4 [facility] Hospital ing:LAB Repository 12/16/2017/ [id number] Ambulatory BMSBuilding:B [facility] 8 6 [facility] Repository 12/07/2017/ [id number] Ambulatory BMSBuilding:B [facility] 8 3 [facility] Repository 11/03/2017 [id number] Ambulatory [facility] 6 [facility] ing:OPBI Repository 10/20/2017/ [id number] Ambulatory BMSBuilding:B [facility] 8 9 [facility] Repository 10/06/2017 [id number] Ambulatory [facility] 6 [facility] ing:INT LAB Repository 10/06/2017/ [id number] Ambulatory BMSBuilding:B [facility] 8 4 [facility] Repository 08/06/2017 [id number] Ambulatory BMSBuilding:B [facility] 0 [facility] Repository 08/04/2017 [id number] Ambulatory [facility] 5 [facility] ing:MTLAB Repository 07/10/2017/ [id number] Ambulatory BMSBuilding:B [facility] 8 1 [facility] Repository 06/09/2017 [id number] Ambulatory BMSBuilding:B [facility] 5 [facility] Repository PAYERS PAYERS ENCOUNTER GUARANTOR PAYER SUBSCRIBER SOURCE 05/10/2018 CHIOMA Knight Primary RENZO Ugaldeoster [id number] Insurance:[facility] [place]: [facility] [id number] [id number] Repository 39157Fnm: (720) Date:6353-47-99EH [phone] () [id number] [place] [address] 75388KZ: 05/10/2018 Secondary NOT GIVENUNK [facility] Insurance:SELF PAY [facility] Number: Effective Repository Date:2018-04-08 05/03/2018 CHIOMA Knight Primary RENZO Ugaldeoster [id number] Insurance:[facility] [place]: [facility] Number: [id number] [id number] Repository [address]Isw: (720) Date:0504-40-09CB [phone] () [id number], [place] [address]IS: 05/03/2018 Secondary NOT GIVENUNK [facility] Insurance:SELF PAY [facility] Number: Effective Repository Date:2018-05-03 03/15/2018 CHIOMA Knight Primary RENZO Kerr [id number] Insurance:ANTHEMPolic BATEMANDOB: Community SHERCK y Number: [id number] [id number] Repository 339[address]Fvs: (720) Date:2606-31-14TI [phone] () [address] [place] [address] 64[address]KI: 03/15/2018 Secondary NOT GIVENUNK [facility] Insurance:SELF PAY [facility] Number: Effective Repository Date:2018-03-15 02/08/2018 CHIOMA Knight Primary RENZO Kerr [id number] Insurance:ANTHEMPolic BATEMANDOB: Community SHERCK y Number: [id number] [id number] Repository [address]Tio: (720) Date:2785-38-92HN [phone] () [address] [place] [address] 58[address]BW: 02/08/2018 Secondary NOT GIVENUNK [facility] Insurance:SELF PAY [facility] Number: Effective Repository Date:2017-05-20 02/08/2018 CHIOMA Knight Primary RENZO Kerr [id number] Insurance:ANTHEMPolic BATEMANDOB: Community SHERCK y Number: [id number], [place] [id number] Repository 59[address]Flp: (720) Date:9094-26-63ZZ [phone] () [id number] [place] [address] 92491JY: 02/08/2018 Secondary NOT GIVENUNK [facility] Insurance:SELF PAY [facility] Number: Effective Repository Date:2018-02-08 01/18/2018 CHIOMA Knight Primary CHIOMA Kerr [id number] Insurance:ANTHEMPolic BATEMANDOB: Community SHERCK y Number: [id number], [place] [id number] Repository 95[address]Jng: (720) Date:7986-57-56QD [phone] () [id number], [place] [address]IL: 01/18/2018 Secondary NOT GIVENUNK [facility] Insurance:SELF PAY [facility] Number: Effective Repository Date:2018-01-18 01/12/2018 CHIOMA Knight Primary CHIOMA Kerr [id number] Insurance:ANTHEMPolic BATEMANDOB: Community SHERCK y Number: [id number], [place] [id number] Repository [address]Ots: (720) Date:2267-86-49PR [phone] () 900251ENZFOOAMAUDE PAYNE [address]44[address]NM: 01/12/2018 Secondary NOT GIVENUNK [facility] Insurance:SELF PAY [facility] Number: Effective Repository Date:2018-01-12 12/16/2017 CHIOMA Knight Primary CHIOMA Ugaldeoster [id number] Insurance:ANTHEMPolic BATEMANDOB: Community SHERCK y Number: [id number], [place] [id number] Repository [address]Owu: (720) Date:4854-51-72GB [phone] () [id number] PAYNE [address]CN: 12/16/2017 Secondary NOT GIVENUNK [facility] Insurance:SELF PAY [facility] Number: Effective Repository Date:2017-12-16 12/07/2017 CHIOMA Knight Primary CHIOMA Kerr [id number] Insurance:ANTHEMPolic BATEMANDOB: Community SHERCK y Number: [id number], [place] [id number] Repository [address]Axc: (720) Date:3987-39-20KQ [phone] () 147497CBYAQCQMAUDE PAYNE [address]XH: 12/07/2017 Secondary NOT GIVENUNK [facility] Insurance:SELF PAY [facility] Number: Effective Repository Date:2017-12-07 11/03/2017 CHIOMA Knight Primary CHIOMA Ugaldeoster [id number] Insurance:ANTHEMPolic BATEMANDOB: Community LESLY y Number: [id number], [place] [id number] Repository [address]Zqv: (720) Date:2336-12-61RB [address] () 575516QLCENIN, [place] [address]IE: 11/03/2017 Secondary NOT GIVENUNK [facility] Insurance:SELF PAY [facility] Number: Effective Repository Date:2017-08-07 10/20/2017 CHIOMA M Primary CHIOMA Knight [facility] [id number] Insurance:ANTHEMPolic BATEMANDOB: Josefa GRACE y Number: [id number], [place] [id number] Repository 799[address]Asr: (720) Date:5383-12-77XA [address] () 611352DXUURDF, [place] [address]UG: 10/20/2017 Secondary NOT GIVENUNK [facility] Insurance:SELF PAY [facility] Number: Effective Repository Date:2017-10-16 10/06/2017 CHIOMA M Primary CHIOMA Knight [facility] [id number] Insurance:ANTHEMPolic BATEMANDOB: Josefa GRACE y Number: [id number], [place] [id number] Repository [address]Iru: (720) Date:9919-89-47XR [address] () [id number], [place] [address]IS: 10/06/2017 Secondary NOT GIVENUNK [facility] Insurance:SELF PAY [facility] Number: Effective Repository Date:2017-10-06 10/06/2017 CHIOMA M Primary RENZO [facility] [id number] Insurance:ANTHEMPolic BATEMANDOB: Josefa GRACE y Number: [id number], [place] [id number] Repository [address]46[address]Mjp: (720) Date:8192-26-56CI [phone] () 916919IZZNYMR, [place] [address]HQ: 10/06/2017 Secondary NOT GIVENUNK [facility] Insurance:SELF PAY [facility] Number: Effective Repository Date:2017-10-06 08/06/2017 CHIOMA Primary RENZO Kerr [id number] Insurance:ANTHEMPolic BATEMANDOB: Community SHERCK y Number: [id number], [place] [id number] Repository 932[address]Rak: (720) Date:3173-09-32MO [phone] () [id number] [place] [address]TX: 08/06/2017 Secondary NOT GIVENUNK [facility] Insurance:SELF PAY [facility] Number: Effective Repository Date:2017-08-06 08/04/2017 CHIOMA Primary CHIOMA Kerr [id number] Insurance:ANTHEMPolic BATEMANDOB: Community SHERCK y Number: [id number], [place] [id number] Repository 477[address]Gxa: (720) Date:6987-99-26VK [phone] () [id number], [place] [address]RP: 08/04/2017 Secondary NOT GIVENUNK [facility] Insurance:SELF PAY [facility] Number: Effective Repository Date:2017-08-04 07/10/2017 CHIOMA M Primary NOT GIVENUNK [facility] [id number] Insurance:SELF [place] Number: Effective Repository [phone]: (720) Date:2017-07-10 [phone] () 06/09/2017 CHIOMA Primary NOT GIVENUNK [facility] [id number] Insurance:[place]LF [place] Number: Effective Repository [phone]: (720) Date:2017-06-09 [phone] ()
== END ==
PROVIDERS: Family Provider Internal Medicine; PCP Internal Medicine; Referring Provider Internal Medicine; Visit Provider Internal Medicine
DX: E55.9 Vitamin D deficiency, unspecified (principal); E78.5 Hyperlipidemia, unspecified; E11.9 Type 2 diabetes mellitus without complications
CPT/HCPCS: 36415; 80053; 80061; 82043; 82306; 82570; 83036

== ENCOUNTER → 2018-08-02 08:16 | Outpatient (CLI) | payer OTHER, SELFPAY ==
[2018-05-10 08:36] VITALS: BMI 36.2
[2018-08-02 09:04] LABS: Hemoglobin A1c 7.4 % (4.2-6.3)
[2018-08-02 09:15] LABS: Anion Gap 9 (5-15); BUN 15 mg/dL (7-18); BUN/Creat Ratio 21.1 RATIO (10-20); Calcium,Total 8.7 mg/dL (8.5-10.1); Chloride 106 mmol/L (98-107); Creatinine, Serum 0.71 mg/dL (0.55-1.02); EST Glomerular Filtration Rate 88 mL/min (>60); Est Glom Filt Rate - Afr Amer 107 mL/min (>60); Glucose 173 mg/dL (74-106); Potassium 4.1 mmol/L (3.5-5.1); Sodium Level 142 mmol/L (136-145)
== END ==
PROVIDERS: Family Provider Internal Medicine; PCP Internal Medicine; Referring Provider Internal Medicine Hematology & Oncology; Visit Provider Internal Medicine Hematology & Oncology
DX: E11.9 Type 2 diabetes mellitus without complications (principal); C50.911 Malignant neoplasm of unspecified site of right female breast
CPT/HCPCS: 36415; 80048; 83036

== ENCOUNTER → 2018-08-17 10:38 | Outpatient (CLI) | payer OTHER, SELFPAY ==
[2018-08-10 09:49] VITALS: BMI 36.2
[2018-08-10 14:07] VITALS: BMI 38.0
--- NOTE | 2018-08-17 10:50 | BD_ITS ---
STUDY: DUAL ENERGY X-RAY ABSORPTIOMETRY / DXA REASON FOR EXAM: Female, 63 years old. The patient's postmenopausal. No loss of height. TECHNIQUE: Bone Mineral Density (BMD) measurements of lumbar spine and bilateral hips were obtained. COMPARISON: None. FINDINGS: Lumbar Spine (L1-L4): g/cm2 (1.050) / T-score (-1.3) / Z-score (0.2) Findings are suggestive of osteopenia with a low fracture risk. Left Femur Total: g/cm2 (0.970) / T-score (-0.3) / Z-score (0.8) Left Femoral Neck: g/cm2 (0.910) / T-score (-0.9) / Z-score (0.5) Right Femur Total: g/cm2 (0.987) / T-score (-0.2) / Z-score (0.9) Right Femoral Neck: g/cm2 (0.907) / T-score (-0.9) / Z-score (0.4) BD/Dexa Bone Density Study IMPRESSION: The patient is considered osteopenic as outlined below according to World Anson Organization (WHO) criteria with a low fracture risk. Reference Information: The T-score is the number of standard deviations above or below the standard which is normal for young adults at their peak bone mineral density. The World Health Organization (WHO) interprets the T-scores as follows: Above -1 Normal bone density Between -1 and -2.5 Osteopenia Equal to / or below -2.5 Osteoporosis As a practical clinical guideline, osteopenia may be graded as follows: Mild -1 through -1.5 Moderate -1.6 through -2.0 Severe -2.1 through -2.4 The Z-score is the number of standard deviations above or below age-matched controls. A Z-score of less than -1.5 would be considered abnormal. References: 1. NIH Osteoporosis and Related Bone Diseases http://www.osteo.org 2. International Society for Clinical Densitometry http://www.iscd.org 3. National Osteoporosis Foundation http://www.nof.org Electronically Signed: Aric Mcnamara, at 14:12 EDT , Service support ,
== END ==
PROVIDERS: Family Provider Internal Medicine; PCP Internal Medicine; Referring Provider Internal Medicine; Visit Provider Internal Medicine
DX: Z78.0 Asymptomatic menopausal state (principal)
CPT/HCPCS: 77080

== ENCOUNTER → 2018-11-04 | Outpatient (CLI) | payer OTHER, SELFPAY ==
[2018-08-10 14:07] VITALS: BMI 38.0
--- NOTE | 2018-11-04 10:01 | BI_ITS ---
MAMMOGRAPHY - BILATERAL SCREENING REASON FOR EXAM: Female, 63 years old. Routine annual screening examination. PERTINENT HISTORY: Personal history of breast cancer. Prior right lumpectomy and radiation treatment. TECHNIQUE: Digital bilateral breast deisy (3D mammographic acquisition) in the CC and MLO projections. 2-D mediolateral oblique (MLO) and craniocaudad (CC) views of both breasts were obtained. CAD: Full Field Digital Mammography with Computer Added Detection was performed. COMPARISON: Comparison is made with prior examination dated November 03, 2017 and November 11, 2016. FINDINGS: Breast Composition: The breasts are heterogeneously dense, which may obscure small masses. There are no dominant masses or suspicious calcifications. The patient is status post lumpectomy in the upper deep lateral aspect of the right breast with postoperative echotexture distortion. This is unchanged. No new mass lesion or cluster of microcalcification is seen. No other significant abnormalities are identified. There has been no significant change since the prior study. BI/SCREEN MAMM (CAD) W/DEISY BILAT IMPRESSION: Stable bilateral screening mammogram. Yearly follow-up mammogram recommended. (A) ASSESSMENT CATEGORY: BIRADS Category 2: Benign. A letter regarding these results will be sent to the patient by the facility within 30 days. Approximately 10% of breast cancers are not detected by mammography. A normal mammogram should not delay biopsy of a clinically suspicious abnormality. [id number] Electronically Signed: Aric Mcnamara, at 11:30 EDT , Service support ,
== END | disposition home or self-care (01) ==
LOC: OPBI 09:55
PROVIDERS: Family Provider Internal Medicine; PCP Internal Medicine; Referring Provider Internal Medicine Hematology & Oncology; Visit Provider Internal Medicine Hematology & Oncology
DX: C50.911 Malignant neoplasm of unspecified site of right female breast (principal); Z12.31 Encounter for screening mammogram for malignant neoplasm of breast
CPT/HCPCS: 77063; 77067

== ENCOUNTER → 2019-02-02 10:04 | Outpatient (CLI) | payer OTHER, SELFPAY ==
[2018-12-31 11:20] VITALS: BMI 36.7
[2019-02-02 12:40] LABS: Absolute Lymphocyte Count 1.16 X10^3/uL (0.83-4.51); Absolute Neutrophil Count 3.5 X10^3/uL (2.0-7.7); Basophil# 0.02 X10^3/uL; Basophil% 0.4 % (0-1); Eosinophil# 0.09 X10^3/uL; Eosinophils% 1.8 % (0-5); Hematocrit 41.9 % (37-47); Lymphocyte # 1.16 X10^3/ul (4.0); Lymphocyte % 23.2 % (19-41); Mean Corp Hgb Conc 33.4 g/dL (32-36); Mean Corpuscular Hgb 31.2 pg (27.0-32.0); Mean Corpuscular Volume 93.3 fL (81-99); Mean Platelet Vol. 9.2 fl (6.2-12.0); Monocyte# 0.26 X10^3/uL; Monocyte% 5.2 % (0-10); NRBC Flagged by Analyzer 0 % (0-5); Neutrophil # 3.46 X10^3/uL (2.7-7.7); Neutrophil % 69.2 % (47-70); Platelet Count 243 K/mm3 (150-450); RBC Distribution Width CV 13.2 % (11.6-14.6); Red Blood Count 4.49 M/mm3 (4.2-5.4)
[2019-02-02 13:01] LABS: Hemoglobin A1c 6.8 % (4.2-6.3)
[2019-02-02 13:06] LABS: AST(SGOT) 16 U/L (15-37); Alanine Aminotransfer ALT/SGPT 23 U/L (13-56); Albumin, Serum 3.5 g/dL (3.2-5.0); Alkaline Phosphatase 68 U/L (45-117); Anion Gap 8 (5-15); BUN 13 mg/dL (7-18); BUN/Creat Ratio 18.3 RATIO (10-20); Calcium,Total 8.7 mg/dL (8.5-10.1); Chloride 107 mmol/L (98-107); Creatinine, Serum 0.71 mg/dL (0.55-1.02); EST Glomerular Filtration Rate 88 mL/min (>60); Est Glom Filt Rate - Afr Amer 106 mL/min (>60); Globulin 3.4 g/dL (2.2-4.2); Glucose 151 mg/dL (74-106); Protein, Total 6.9 g/dL (6.4-8.2); Sodium Level 139 mmol/L (136-145)
[2019-02-02 18:10] LABS: Xtra Tube EP Lab EXTRA TUBE
== END ==
PROVIDERS: Internal Medicine Hematology & Oncology; Family Provider Internal Medicine; PCP Internal Medicine; Visit Provider Internal Medicine
DX: E11.9 Type 2 diabetes mellitus without complications (principal); C50.911 Malignant neoplasm of unspecified site of right female breast; M85.80 Other specified disorders of bone density and structure, unspecified site
CPT/HCPCS: 36415; 80053; 83036; 85025

== ENCOUNTER → 2019-05-11 08:27 | Outpatient (CLI) | payer OTHER, SELFPAY ==
[2019-02-15 13:14] VITALS: BMI 37.7
[2019-05-11 12:30] LABS: Cholesterol 140 mg/dL (200); High Density Lipoprotein 69 mg/dL; Triglycerides 96 mg/dL; Very Low Density Lipoprotein 19 mg/dL (5-40)
[2019-05-11 12:31] LABS: Hemoglobin A1c 7.2 % (4.2-6.3)
[2019-05-11 12:42] LABS: Microalbumin,Random Urine 6.4 mg/L (NO RANGE EST.); Microalbumin:Creatinine Ratio 7.2 mg/g CRE (<30 mg/g CRE)
== END ==
PROVIDERS: Family Provider Internal Medicine; PCP Internal Medicine; Visit Provider Internal Medicine
DX: E11.9 Type 2 diabetes mellitus without complications (principal); I10 Essential (primary) hypertension
CPT/HCPCS: 36415; 80061; 82043; 82570; 83036

== ENCOUNTER → 2019-06-27 14:24 | Outpatient (CLI) | payer OTHER, SELFPAY ==
[2019-06-27 08:27] VITALS: BMI 37.7
[2019-06-30 11:09] LABS: HPV APTIMA, High Risk Negative (Negative)
== END ==
PROVIDERS: PCP Internal Medicine; Visit Provider Nurse Practitioner Women's Health
DX: Z12.4 Encounter for screening for malignant neoplasm of cervix (principal)
CPT/HCPCS: 87624; 88175; G0145

== ENCOUNTER → 2019-06-30 14:20 | Outpatient (CLI) | payer OTHER, SELFPAY ==
[2019-06-27 08:27] VITALS: BMI 37.7
--- NOTE | 2019-06-30 14:20 | US_ITS ---
STUDY: ULTRASOUND OF THE FEMALE PELVIS - COMPLETE REASON FOR EXAM: Female, 64 years old. PROLONGED USE OF ARIMIDEX TECHNIQUE: Endovaginal TECHNICAL QUALITY: Adequate. COMPARISON: None. FINDINGS: The uterus is retroverted and is in a midline position. The uterus measures 7.0 x 4.1 x 3.4 cm. Nabothian cyst at the uterine cervix. The endometrium measures 1.6 mm in thickness, and is hyperechoic. There is no demonstrated endometrial mass. There is a probable fundal fibroid measuring 8 x 6 x 4 mm. The patient does not have an I.U.D. The ovaries are not visualized. There is no fluid in the cul-de-sac. The pre void volume of the bladder was 526 ml. US/Transvaginal Non- IMPRESSION: Retroverted uterus with probable small fundal fibroid. Nabothian cyst. Nonvisualization of the ovaries. Electronically Signed: Shamar Caballero DO at 23:14 EST Tel [phone], Service support ,
--- NOTE | 2019-06-30 14:20 | US_ITS ---
STUDY: ULTRASOUND OF THE FEMALE PELVIS - COMPLETE REASON FOR EXAM: Female, 64 years old. PROLONGED USE OF ARIMIDEX TECHNIQUE: Endovaginal TECHNICAL QUALITY: Adequate. COMPARISON: None. FINDINGS: The uterus is retroverted and is in a midline position. The uterus measures 7.0 x 4.1 x 3.4 cm. Nabothian cyst at the uterine cervix. The endometrium measures 1.6 mm in thickness, and is hyperechoic. There is no demonstrated endometrial mass. There is a probable fundal fibroid measuring 8 x 6 x 4 mm. The patient does not have an I.U.D. The ovaries are not visualized. There is no fluid in the cul-de-sac. The pre void volume of the bladder was 526 ml. US/Pelvic (Non ) IMPRESSION: Retroverted uterus with probable small fundal fibroid. Nabothian cyst. Nonvisualization of the ovaries. Electronically Signed: Shamar Caballero DO at 23:14 EST Tel [phone], Service support ,
== END ==
PROVIDERS: PCP Internal Medicine; Referring Provider Nurse Practitioner Women's Health; Visit Provider Nurse Practitioner Women's Health
DX: Z79.811 Long term (current) use of aromatase inhibitors (principal)
CPT/HCPCS: 76830; 76856

== ENCOUNTER → 2019-08-11 11:59 | Outpatient (CLI) | payer OTHER, SELFPAY ==
[2019-06-27 08:27] VITALS: BMI 37.7
[2019-08-11 15:47] LABS: Anion Gap 6 (5-15); BUN 13 mg/dL (7-18); BUN/Creat Ratio 17.1 RATIO (10-20); Calcium,Total 9.3 mg/dL (8.5-10.1); Chloride 105 mmol/L (98-107); Creatinine, Serum 0.76 mg/dL (0.55-1.02); EST Glomerular Filtration Rate 81 mL/min (>60); Est Glom Filt Rate - Afr Amer 98 mL/min (>60); Glucose 188 mg/dL (74-106); Potassium 4.7 mmol/L (3.5-5.1); Sodium Level 138 mmol/L (136-145)
[2019-08-11 16:15] LABS: Hemoglobin A1c 7.6 % (4.2-6.3)
== END ==
PROVIDERS: PCP Internal Medicine; Referring Provider Internal Medicine; Visit Provider Internal Medicine
DX: E11.9 Type 2 diabetes mellitus without complications (principal)
CPT/HCPCS: 36415; 80048; 83036

== ENCOUNTER → 2019-10-18 10:50 | Outpatient (CLI) | payer OTHER, SELFPAY ==
[2019-10-18 08:22] VITALS: BMI 37.5
[2019-10-18 11:08] LABS: Mucous, Urine 0 SEEN /hpf (<or=2+); Red Blood Cells-Urine 0 SEEN /hpf (0-5)
[2019-10-18 11:22] LABS: Color, Urine Yellow (Yellow); Glucose, Dipstick Normal (Normal); Ketone-Dipstick Negative (Negative); Leukocyte Esterase-Dipstick 100 /ul (Negative); Nitrite-Dipstick Negative (Negative); Occult Blood-Urine Negative /ul (Negative); Protein-Dipstick 15 mg/dl (Negative); Specific Gravity, Urine 1.025 (1.002-1.030); Urine Bilirubin Dipstick Negative (Negative); Urine Clarity Sl. Cloudy (Clear); Urine Urobilinogen Normal (Normal)
[2019-10-18 11:29] LABS: Anion Gap 8 (5-15); BUN 10 mg/dL (7-18); BUN/Creat Ratio 14.3 RATIO (10-20); Calcium,Total 9.3 mg/dL (8.5-10.1); Chloride 109 mmol/L (98-107); EST Glomerular Filtration Rate 90 mL/min (>60); Est Glom Filt Rate - Afr Amer 109 mL/min (>60); Glucose 106 mg/dL (74-106); Potassium 4.7 mmol/L (3.5-5.1); Sodium Level 143 mmol/L (136-145)
[2019-10-18 11:42] LABS: Bacteria 1+ /hpf (None Seen); Squamous Epithelial Cells - UA 0-5 SEEN /hpf (5-10); White Blood Cells 10-25 SEEN /hpf (0-5)
== END ==
PROVIDERS: PCP Internal Medicine; Referring Provider Internal Medicine; Visit Provider Internal Medicine
DX: R30.0 Dysuria (principal); I10 Essential (primary) hypertension
CPT/HCPCS: 80048; 81001; 87077; 87086; 87088; 87186

== ENCOUNTER → 2019-12-12 10:36 | Outpatient (CLI) | payer OTHER, SELFPAY ==
[2019-09-20 14:40] VITALS: BMI 37.5
[2019-10-18 08:22] VITALS: BMI 37.5
--- NOTE | 2019-12-12 10:36 | BI_ITS ---
MAMMOGRAPHY - BILATERAL SCREENING REASON FOR EXAM: Female, 64 years old. Routine annual screening examination. PERTINENT HISTORY: Personal history of breast cancer. Prior right lumpectomy with radiation treatment. TECHNIQUE: Digital bilateral breast deisy (3D mammographic acquisition) in the CC and MLO projections. 2-D mediolateral oblique (MLO) and craniocaudad (CC) views of both breasts were obtained. CAD: Full Field Digital Mammography with Computer Added Detection was performed. COMPARISON: Comparison is made with prior study dated November 04, 2018 and November 03, 2017. FINDINGS: Breast Composition: The breasts are heterogeneously dense, which may obscure small masses. There are no dominant masses or suspicious calcifications. Once again, the patient is status post lumpectomy in the upper deep lateral aspect of the right breast No other significant abnormalities are identified. There has been no significant change since the prior study. BI/SCREEN MAMM (CAD) W/DEISY BILAT IMPRESSION: Stable bilateral screening mammogram. Yearly follow-up mammogram recommended. (A) ASSESSMENT CATEGORY: BIRADS Category 2: Benign. A letter regarding these results will be sent to the patient by the facility within 30 days. Approximately 10% of breast cancers are not detected by mammography. A normal mammogram should not delay biopsy of a clinically suspicious abnormality. [id number] Electronically Signed: Aric Mcnamara, at 12:04 EDT , Service support ,
== END ==
PROVIDERS: PCP Internal Medicine; Referring Provider Internal Medicine Hematology & Oncology; Visit Provider Internal Medicine Hematology & Oncology
DX: Z12.31 Encounter for screening mammogram for malignant neoplasm of breast (principal); Z85.3 Personal history of malignant neoplasm of breast
CPT/HCPCS: 77063; 77067

== ENCOUNTER → 2019-12-20 13:03 | Outpatient (CLI) | payer OTHER, SELFPAY ==
[2019-12-20 11:36] VITALS: BMI 37.5
[2019-12-30 17:06] LABS: HSV Culture Without Typing NEGATIVE (.)
== END ==
PROVIDERS: PCP Internal Medicine; Referring Provider Nurse Practitioner Women's Health; Visit Provider Nurse Practitioner Women's Health
DX: N76.4 Abscess of vulva (principal)
CPT/HCPCS: 87070; 87077; 87186; 87205; 87255

== ENCOUNTER → 2020-05-14 12:50 | Outpatient (CLI) | payer MEDICARE, BC, SELFPAY ==
[2020-05-14 10:51] VITALS: BMI 39.1
== END ==
PROVIDERS: PCP Internal Medicine; Referring Provider Physician Assistant Surgical; Visit Provider Physician Assistant Surgical
DX: Z20.828 Contact with and (suspected) exposure to other viral communicable diseases (principal)
CPT/HCPCS: 87635; U0003

== ENCOUNTER → 2020-07-09 11:36 | Outpatient (CLI) | payer MEDICARE, BC, SELFPAY ==
[2020-07-09 11:10] VITALS: BMI 38.9
[2020-07-09 13:09] LABS: AST(SGOT) 15 U/L (15-37); Alanine Aminotransfer ALT/SGPT 20 U/L (13-56); Albumin, Serum 3.7 g/dL (3.2-5.0); Alkaline Phosphatase 65 U/L (45-117); Anion Gap 6 (5-15); BUN 15 mg/dL (7-18); BUN/Creat Ratio 18.7 RATIO (10-20); Calcium,Total 9.4 mg/dL (8.5-10.1); Chloride 106 mmol/L (98-107); EST Glomerular Filtration Rate 76 mL/min (>60); Est Glom Filt Rate - Afr Amer 92 mL/min (>60); Globulin 3.7 g/dL (2.2-4.2); Glucose 145 mg/dL (74-106); Protein, Total 7.4 g/dL (6.4-8.2); Sodium Level 137 mmol/L (136-145)
== END ==
PROVIDERS: PCP Internal Medicine; Visit Provider Internal Medicine
DX: I10 Essential (primary) hypertension (principal)
CPT/HCPCS: 36415; 80053

== ENCOUNTER → 2020-08-21 08:18 | Outpatient (CLI) | payer MEDICARE, BC, SELFPAY ==
[2020-03-21 11:20] VITALS: BMI 40.4
[2020-07-09 11:10] VITALS: BMI 38.9
--- NOTE | 2020-08-21 08:25 | BD_ITS ---
STUDY: DUAL ENERGY X-RAY ABSORPTIOMETRY / DXA REASON FOR EXAM: Female, 65 years old. 733.90OsteopeniaBONE DENSITY REASON FOR EXAM TECHNIQUE: Bone Mineral Density (BMD) measurements of lumbar spine and bilateral hips were obtained. COMPARISON: Comparison is made with prior study dated 08/17/2018. FINDINGS: Lumbar Spine (L1-L4): g/cm2 (1.044) / T-score (-1.1) / Z-score (0.5) Findings are suggestive of osteopenia with a low fracture risk. Left Femur Total: g/cm2 (1.007) / T-score (0.0) / Z-score (1.2) Left Femoral Neck: g/cm2 (0.966) / T-score (0.5) / Z-score (1.0) Right Femur Total: g/cm2 (1.011) / T-score (0.0) / Z-score (1.2) Right Femoral Neck: g/cm2 (0.975) / T-score (-0.5) / Z-score (1.0) The T-Scores on the most recent prior examination were: Lumbar Spine (L1-L4): There has been improvement of bone density since the previous examination. Left Femur Total: which represents an improvement of 3.8%. Right Femur Total: which represents an improvement of 2.4%. BD/Dexa Bone Density Study IMPRESSION: The patient is considered osteopenic as outlined below according to World Anson Organization (WHO) criteria with a low fracture risk. There has been improvement of bone density since the previous examination. Reference Information: The T-score is the number of standard deviations above or below the standard which is normal for young adults at their peak bone mineral density. The World Health Organization (WHO) interprets the T-scores as follows: Above -1 Normal bone density Between -1 and -2.5 Osteopenia Equal to / or below -2.5 Osteoporosis As a practical clinical guideline, osteopenia may be graded as follows: Mild -1 through -1.5 Moderate -1.6 through -2.0 Severe -2.1 through -2.4 The Z-score is the number of standard deviations above or below age-matched controls. A Z-score of less than -1.5 would be considered abnormal. References: 1. NIH Osteoporosis and Related Bone Diseases www osteo.org 2. International Society for Clinical Densitometry www iscd.org 3. National Osteoporosis Foundation www nof.org Electronically Signed: Aric Mcnamara MD at 14:23 EDT , Service support ,
== END ==
PROVIDERS: PCP Internal Medicine; Referring Provider Internal Medicine Hematology & Oncology; Visit Provider Internal Medicine Hematology & Oncology
DX: M85.89 Other specified disorders of bone density and structure, multiple sites (principal)
CPT/HCPCS: 77080

== ENCOUNTER → 2020-12-13 07:59 | Outpatient (CLI) | payer MEDICARE, BC, SELFPAY ==
[2020-09-26 11:03] VITALS: BMI 39.1
[2020-10-08 09:44] VITALS: BMI 39.1
--- NOTE | 2020-12-13 08:00 | BI_ITS ---
MAMMOGRAPHY - BILATERAL SCREENING REASON FOR EXAM: Female, 65 years old. Routine annual screening examination. PERTINENT HISTORY: Personal history of breast cancer. Prior right lumpectomy and radiation treatment. TECHNIQUE: Digital bilateral breast deisy (3D mammographic acquisition) in the CC and MLO projections. 2-D mediolateral oblique (MLO) and craniocaudad (CC) views of both breasts were obtained. CAD: Full Field Digital Mammography with Computer Added Detection was performed. COMPARISON: Comparison is made with prior study dated 12/12/2019 and 11/04/2018. FINDINGS: Breast Composition: The breasts are heterogeneously dense, which may obscure small masses. There are no dominant masses or suspicious calcifications. The patient is status post lumpectomy in the deep upper lateral portion of the right breast with resultant architectural distortion. This is unchanged. No other significant abnormalities are identified. There has been no significant change since the prior study. BI/SCRN MAMM (CAD)W/DEISY BILAT IMPRESSION: Stable bilateral screening mammogram. Yearly follow-up mammogram recommended. (A) ASSESSMENT CATEGORY: BIRADS Category 2: Benign. A letter regarding these results will be sent to the patient by the facility within 30 days. Approximately 10% of breast cancers are not detected by mammography. A normal mammogram should not delay biopsy of a clinically suspicious abnormality. [id number] Electronically Signed: Aric Mcnamara MD at 8:46 EDT , Service support ,
== END ==
PROVIDERS: PCP Internal Medicine; Referring Provider Internal Medicine Hematology & Oncology; Visit Provider Internal Medicine Hematology & Oncology
DX: Z12.31 Encounter for screening mammogram for malignant neoplasm of breast (principal)
CPT/HCPCS: 77063; 77067

== ENCOUNTER → 2021-02-13 09:45 | Outpatient (CLI) | payer MEDICARE, BC, SELFPAY ==
[2021-02-13 10:54] LABS: Absolute Lymphocyte Count 1.15 X10^3/uL (0.83-4.51); Absolute Neutrophil Count 2.7 X10^3/uL (2.0-7.7); Basophil# 0.03 X10^3/uL; Basophil% 0.7 % (0-1); Eosinophil# 0.13 X10^3/uL; Eosinophils% 3.1 % (0-5); Hematocrit 40.8 % (37-47); Hemoglobin 13.3 g/dL (12.0-15.0); Lymphocyte # 1.15 X10^3/ul (0.83-4.51); Lymphocyte % 27.6 % (19-41); Mean Corp Hgb Conc 32.6 g/dL (32-36); Mean Corpuscular Hgb 29.8 pg (27.0-32.0); Mean Corpuscular Volume 91.5 fL (81-99); Monocyte# 0.17 X10^3/uL; Monocyte% 4.1 % (0-10); NRBC Flagged by Analyzer 0 % (0-5); Neutrophil # 2.68 X10^3/uL (2.7-7.7); Neutrophil % 64.3 % (47-70); Platelet Count 266 K/mm3 (150-450); RBC Distribution Width CV 13.2 % (11.6-14.6); RBC Distribution Width SD 45.1 fl (35.1-43.9); Red Blood Count 4.46 M/mm3 (4.2-5.4); White Blood Count 4.2 K/mm3 (4.4-11.0)
[2021-02-13 11:16] LABS: ALB/GLOB Ratio 0.9 RATIO (0.9-2.4); AST(SGOT) 15 U/L (15-37); Alanine Aminotransfer ALT/SGPT 23 U/L (13-56); Albumin, Serum 3.3 g/dL (3.2-5.0); Alkaline Phosphatase 64 U/L (45-117); Anion Gap 4 (5-15); BUN 15 mg/dL (7-18); BUN/Creat Ratio 21.3 RATIO (10-20); Calcium,Total 8.7 mg/dL (8.5-10.1); Chloride 106 mmol/L (98-107); Cholesterol 132 mg/dL (200); EST Glomerular Filtration Rate 88 mL/min (>60); Est Glom Filt Rate - Afr Amer 107 mL/min (>60); Globulin 3.7 g/dL (2.2-4.2); Glucose 190 mg/dL (74-106); High Density Lipoprotein 59 mg/dL; Potassium 3.9 mmol/L (3.5-5.1); Sodium Level 137 mmol/L (136-145); Triglycerides 77 mg/dL; Very Low Density Lipoprotein 15 mg/dL (5-40)
== END ==
PROVIDERS: PCP Internal Medicine; Referring Provider Internal Medicine; Visit Provider Internal Medicine
DX: I10 Essential (primary) hypertension (principal); E78.5 Hyperlipidemia, unspecified; E11.9 Type 2 diabetes mellitus without complications
CPT/HCPCS: 36415; 80053; 80061; 85025

== ENCOUNTER 2021-06-17 12:11 | Outpatient (CLI) | payer MEDICARE, BC, SELFPAY ==
[2021-06-17 15:41] LABS: Microalbumin:Creatinine Ratio 14.3 mg/g CRE (<30 mg/g CRE)
== END 2021-06-17 23:59 | disposition short-term general hospital (02) ==
LOC: LABSPEC 12:12
PROVIDERS: PCP Internal Medicine; Visit Provider Internal Medicine
DX: E11.9 Type 2 diabetes mellitus without complications (principal); E78.5 Hyperlipidemia, unspecified
CPT/HCPCS: 82043; 82570

== ENCOUNTER 2021-08-13 09:14 | Outpatient (CLI) | payer MEDICARE, BC, SELFPAY ==
[2021-08-13 12:32] LABS: Anion Gap 4 (5-15); BUN 15 mg/dL (7-18); BUN/Creat Ratio 18.8 RATIO (10-20); Calcium,Total 9.5 mg/dL (8.5-10.1); Chloride 108 mmol/L (98-107); EST Glomerular Filtration Rate 76 mL/min (>60); Est Glom Filt Rate - Afr Amer 92 mL/min (>60); Glucose 146 mg/dL (74-106); Potassium 4.8 mmol/L (3.5-5.1); Sodium Level 139 mmol/L (136-145)
[2021-08-13 12:39] LABS: Hemoglobin A1c 6.3 % (3.8-5.6)
== END 2021-08-13 23:59 | disposition home or self-care (01) ==
LOC: BIMLAB 09:15
PROVIDERS: PCP Internal Medicine; Referring Provider Internal Medicine; Visit Provider Internal Medicine
DX: E11.9 Type 2 diabetes mellitus without complications (principal)
CPT/HCPCS: 36415; 80048; 83036

== ENCOUNTER 2021-08-28 06:18 | Day surgery (SDC) | payer MEDICARE, BC, SELFPAY ==
[2021-08-28] VITALS (7 sets, daily range): BP systolic 101–138; BP diastolic 45–127; PULSE 67–77; RESP 16; TEMP 36.3–37.1; O2SAT 97–99; BMI 39.9
[2021-08-28] MEDS: Lactated Ringers 1,000 ML 15 ML IV (06:56)
--- NOTE | 2021-08-28 07:06 | HP.PCM_ITS ---
History and Physical Date of Admission: 08/28/21 [facility] CHIOMA LOCO, is a 66 F w with past medical history of breast cancer, family history of colon cancer who presents today for screening colonoscopy. She is not having abdominal pain at this time. She is not having any cramping. She denied having any chest pain or shortness of breath. She is not having any bleeding per rectum. She denies any constipation or diarrhea. Overall she is feeling very well. [facility] Medical History Abnormal bruising Breast cancer Burning with urination Diabetes Health care maintenance Hemorrhoids HTN (hypertension) Hyperlipidemia Osteopenia due to cancer therapy Urinary frequency Surgical History Status post right breast lumpectomy Family History Mother CAD (coronary artery disease) Heart disease Asthma Father CAD (coronary artery disease) Thrombocytopenia Melanoma Myocardial infarction, Onset Age: 83 Brother Suicide Grandfather Colon cancer Sister Asthma ROS Const Constitutional: No body ache, chills, excessive sweating, fatigue, fever(s), frequent falls, headache(s), snoring, weakness, weight change, sleep problems or change in appetite Eyes Eyes: No blurry vision, change in vision, eye pain or Light sensitivity ENT ENT: No abnormal hearing, ear or mastoid pain, tinnitus, nasal congestion, headache(s), neck pain or sore throat Resp Respiratory: No cough, shortness of breath, snoring or wheezing Cardio Cardiology: No chest pain at rest, chest pain with exertion, excessive sweating, shortness of breath, dyspnea on exertion, lightheadedness, orthopnea or palpitations Gastro GI: No abdominal pain, change in bowel habits, constipation, cramping, diarrhea, nausea/dyspepsia or vomiting Genitourinary-Female: No burning urination, painful urination, urinary incontinence, urinary frequency or abnormal vaginal bleeding Musc Musculoskeletal: No abnormal gait, joint pain, back pain, limited range of motion, neck pain, numbness or tingling Skin Skin: No dry skin, redness, lesions, itchy eyes, rash or wounds Neuro Neurology: No abnormal gait, abnormal hearing, abnormal speech, dizziness, weakness, frequent falls, headache(s), memory loss, numbness or tingling Psych Psychiatric: No anxiety, No change in appetite, No depression, No memory loss and No Thoughts of harming yourself/Others Endo Endocrine: No cold intolerance, excessive sweating, fatigue, flushing, heat intolerance, increased thirst/drinking, increased hunger or weight change Aller/Imm Allergy/Immunologic: No itchy eyes, seasonal allergy symptoms, hives or wheezing Shyam/Lymp Hematologic/Lymphatic: No easy bleeding, easy bruising or enlarged lymph nodes Exam Const General: cooperative, comfortable and no acute distress Orientation: alert, awake and oriented x3 [facility] Head: normal to inspection, normocephalic and atraumatic Ears: hearing grossly normal bilaterally Neck Neck: normal visual inspection, full ROM, no lymphadenopathy and supple Neck mass: No Thyroid: thyroid normal Resp Effort & Inspection: normal respiratory effort and able to speak in complete sentences Auscultation: Bilateral: Clear to Auscultation Cardio Rate: regular rate Rhythm: regular rhythm Heart Sounds: S1 normal and S2 normal GI Palpation: soft (Nontender, no palpable organomegaly) Neuro General: patient alert, patient awake, patient oriented x3, moves all extremities and CN's II-XI intact bilaterally Extrem General: no clubbing, cyanosis or edema Psych Appearance: grossly normal Mental Status: mental status grossly normal Mood: congruent mood Affect: normal affect Assessment and Plan Screening colonoscopy and positive family history of colon cancer. She will undergo colonoscopy. She was explained alternatives, risk, benefits including not withstanding bleeding, infection, sepsis, perforation, need for emergent surgery . She will have an ASA of 2.
--- NOTE | 2021-08-28 07:15 | COLBX_PTH ---
PATIENT: CHIOMA LOCO LOC: EN U#:[id number] AGE/SX: 66/F ROOM: RE08/28/[address]: Dr. Brenden Witt DO : 1955 BED: DIS: 08/28/2021 SPEC #: [id number] RECD: 08/28/21 10:51 STATUS: BRYAN WELCH #: [id number] RUSTY: 08/28/21 07:[address]: Brenden Witt DEPT: SURGICAL PATHOLOGY RECD BY: Mary Patterson ENTERED: 08/28/21 12:22 SP TYPE: COLON BX ЮЛИЯ DR: Dr. Shereen Shoemaker MD Tissues: A - Cecum, NOS B - Transverse colon C - Sigmoid colon biopsy Procedures: Surgery Specimen Level IV HEADER OPERATION: Colonoscopy ? open access (MAC) with biopsy PRE-OP DIAGNOSIS: Screening colonoscopy and positive family history colon cancer TISSUE SUBMITTED: A ? Cecal polyp biopsy, B ? Transverse colon polyp biopsy, C ? Sigmoid colon polyp biopsy MICROSCOPIC DIAGNOSIS A. Cecal polyp, biopsy: Fragment of benign colonic mucosa. See comment. B. Transverse colon polyp, biopsy: Tubular adenoma. C. Sigmoid colon polyp, biopsy: Fragments of tubular adenoma. AM:meek 08/29/2021 COMMENT A. Neither hyperplastic nor adenomatous change is identified. Clinical correlation is suggested. MICROSCOPIC DESCRIPTION Slides are reviewed. GROSS DESCRIPTION A - Received in fixative is one container labeled with the patient's name and designated cecum polyp biopsy. The specimen consists of two irregular fragments of light levy soft tissue that in aggregate measure 0.5 x 0.5 x 0.1 cm. The specimen is totally submitted in one cassette. B - Received in fixative is one container labeled with the patient's name and designated transverse colon polyp biopsy. The specimen consists of one irregular fragment of light levy soft tissue that measures 0.3 x 0.3 x 0.1 cm. The specimen is totally submitted in one cassette. C - Received in fixative is one container labeled with the patient's name and designated sigmoid colon polyp biopsy. The specimen consists of two irregular fragments of light levy soft tissue that in aggregate measure 0.6 x 0.4 x 0.1 cm. The specimen is totally submitted in one cassette. / TRISTAN:meek 08/28/2021 TC:5 CPT: 76212 x3
--- NOTE | 2021-08-28 07:49 | OP.COLON_ITS ---
Patient Name: Laura Brewer Procedure Date: 08/28/2021 7:11 AM Date of : 1955 Age: 66 Procedure: Colonoscopy Indications: Screening for colorectal malignant neoplasm Providers: Brenden Witt DO Medicines: See the Anesthesia note for documentation of the administered medications Patient Profile: Last Colonoscopy: 5 years ago. Complications: No immediate complications. Procedure: Pre-Anesthesia Assessment: - Prior to the procedure, a History and Physical was performed, and patient medications and allergies were reviewed. The patient is competent. The risks and benefits of the procedure and the sedation options and risks were discussed with the patient. All questions were answered and informed consent was obtained. Patient identification and proposed procedure were verified by the physician in the pre-procedure area. Mental Status Examination: alert and oriented. Airway Examination: normal oropharyngeal airway and neck mobility. Respiratory Examination: clear to auscultation. CV Examination: normal. Prophylactic Antibiotics: The patient does not require prophylactic antibiotics. Prior Anticoagulants: The patient has taken no previous anticoagulant or antiplatelet agents. ASA Grade Assessment: II - A patient with mild systemic disease. After reviewing the risks and benefits, the patient was deemed in satisfactory condition to undergo the procedure. The anesthesia plan was to use moderate sedation / analgesia (conscious sedation). Immediately prior to administration of medications, the patient was re-assessed for adequacy to receive sedatives. The heart rate, respiratory rate, oxygen saturations, blood pressure, adequacy of pulmonary ventilation, and response to care were monitored throughout the procedure. The physical status of the patient was re-assessed after the procedure. After I obtained informed consent, the scope was passed under direct vision. Throughout the procedure, the patient's blood pressure, pulse, and oxygen saturations were monitored continuously. The colonoscope was introduced through the anus and advanced to the cecum, identified by appendiceal orifice and ileocecal valve. The colonoscopy was performed without difficulty. The patient tolerated the procedure well. The quality of the bowel preparation was good. Moderate Sedation: Moderate (conscious) sedation was administered by the endoscopy nurse and supervised by the endoscopist. The patient's oxygen saturation, heart rate, blood pressure and response to care were monitored. Total physician intraservice time was 15 minutes. Scope In: 7:26:49 AM Scope Withdrawal Time 0 hours 11 minutes 48 seconds Scope Out: 7:42:22 AM Total Procedure Duration Time 0 hours 15 minutes 33 seconds Findings: The perianal and digital rectal examinations were normal. Three sessile polyps were found in the sigmoid colon, transverse colon and cecum. The polyps were 1 to 2 mm in size. These polyps were removed with a hot snare. Resection and retrieval were complete. Verification of patient identification for the specimen was done. Estimated blood loss was minimal. A few small and large-mouthed diverticula were found in the recto-sigmoid colon and sigmoid colon. Two large angiodysplastic lesions without bleeding were found in the ascending colon. Impression: - Three 1 to 2 mm polyps in the sigmoid colon, in the transverse colon and in the cecum, removed with a hot snare. Resected and retrieved. - Diverticulosis in the recto-sigmoid colon and in the sigmoid colon. - Two non-bleeding colonic angiodysplastic lesions. Recommendation: - Discharge patient to home. - Resume previous diet. - Continue present medications. - Await pathology results. - Repeat colonoscopy in 5 years for surveillance. Procedure Code(s): --- Professional --- 40961, Colonoscopy, flexible; with removal of tumor(s), polyp(s), or other lesion(s) by snare technique 37450, 59, Moderate sedation services provided by the same physician or other qualified health respiratory care specialist performing the diagnostic or therapeutic service that the sedation supports, requiring the presence of an independent trained observer to assist in the monitoring of the patient's level of consciousness and physiological status; initial 15 minutes of intraservice time, patient age 5 years or older CPT copyright 2017 [employer]. All rights reserved. The codes documented in this report are preliminary and upon leather belt shaper review may be revised to meet current compliance requirements. Brenden Witt DO 08/28/2021 7:48:18 AM This report has been signed electronically. Number of Addenda: 1 Note Initiated On: 08/28/2021 7:11 AM Addendum Number: 1 Addendum Date: 02/26/2022 6:17:24 AM MAC was used as sedation for this procedure. Brenden Witt DO 02/26/2022 6:17:28 AM This report has been signed electronically.
--- NOTE | 2021-08-28 07:49 | OP.CCLET_ITS ---
02/26/2022 Shereen Shoemaker MD [address] [place] [address] [place] [address] Re : Colonoscopy procedure for Laura Brewer Dear Dr. Shoemaker This procedure was performed on Saturday, August 28, 2021. My impressions and recommendations are as follows: Impressions : - Three 1 to 2 mm polyps in the sigmoid colon, in the transverse colon and in the cecum, removed with a hot snare. Resected and retrieved. - Diverticulosis in the recto-sigmoid colon and in the sigmoid colon. - Two non-bleeding colonic angiodysplastic lesions. Recommendations : - Discharge patient to home. - Resume previous diet. - Continue present medications. - Await pathology results. - Repeat colonoscopy in 5 years for surveillance. My findings are described in the full procedure note, which is enclosed. If I can be of further assistance, please feel free to contact me at . Sincerely, Brenden Witt, 08/28/2021 7:48:18 AM This report has been signed electronically.
[2021-08-28 08:06] LABS: Bedside Glucose 193 mg/dL (74-106)
== END 2021-08-28 23:59 | disposition home or self-care (01) ==
LOC: EN 06:20 → AC 06:21
PROVIDERS: PCP Internal Medicine; Referring Provider Internal Medicine; Visit Provider Internal Medicine Gastroenterology
PROC: 0DJD8ZZ Inspection of Lower Intestinal Tract, Via Natural or Artificial Opening Endoscopic (ICD-10-PCS; CPT 45378; principal; 2021-08-28 07:10)
DX: Z12.11 Encounter for screening for malignant neoplasm of colon (principal); E11.9 Type 2 diabetes mellitus without complications; D12.5 Benign neoplasm of sigmoid colon; K57.30 Diverticulosis of large intestine without perforation or abscess without bleeding; Z80.0 Family history of malignant neoplasm of digestive organs; Z90.49 Acquired absence of other specified parts of digestive tract; E78.5 Hyperlipidemia, unspecified; I10 Essential (primary) hypertension; Z85.3 Personal history of malignant neoplasm of breast; D12.3 Benign neoplasm of transverse colon
CPT/HCPCS: 45385; 82962; 88305; J7120

== ENCOUNTER → 2021-12-16 | Outpatient (CLI) | payer MEDICARE, BC, SELFPAY ==
--- NOTE | 2021-12-16 08:21 | BI_ITS ---
MAMMOGRAPHY - BILATERAL SCREENING REASON FOR EXAM: Female, 66 years old. Routine annual screening examination. PERTINENT HISTORY: Personal history of breast cancer. Prior right lumpectomy and radiation treatment. TECHNIQUE: Digital bilateral breast deisy (3D mammographic acquisition) in the CC and MLO projections. 2-D mediolateral oblique (MLO) and craniocaudad (CC) views of both breasts were obtained. CAD: Full Field Digital Mammography with Computer Added Detection was performed. COMPARISON: Comparison is made with prior examination dated 12/13/2020 and 12/12/2019. FINDINGS: Breast Composition: The breasts are heterogeneously dense, which may obscure small masses. There are no dominant masses or suspicious calcifications. The patient is status post lumpectomy in the deep upper slightly outer aspect of the right breast with resultant postsurgical changes. No other significant abnormalities are identified. There has been no significant change since the prior study. BI/SCRN MAMM (CAD)W/DEISY BILAT IMPRESSION: Stable bilateral screening mammogram. Yearly follow-up mammogram recommended. (A) ASSESSMENT CATEGORY: BIRADS Category 2: Benign. A letter regarding these results will be sent to the patient by the facility within 30 days. Approximately 10% of breast cancers are not detected by mammography. A normal mammogram should not delay biopsy of a clinically suspicious abnormality. [id number] Electronically Signed: Aric Mcnamara MD at 9:07 EDT ,
== END | disposition home or self-care (01) ==
LOC: OPBI 08:21
PROVIDERS: PCP Internal Medicine; Visit Provider Internal Medicine Hematology & Oncology
DX: Z12.31 Encounter for screening mammogram for malignant neoplasm of breast (principal); Z85.3 Personal history of malignant neoplasm of breast
CPT/HCPCS: 77063; 77067

== ENCOUNTER → 2022-02-24 | Outpatient (CLI) | payer MEDICARE, BC, SELFPAY ==
[2022-02-24 12:10] LABS: Absolute Lymphocyte Count 1.22 X10^3/uL (0.83-4.51); Absolute Neutrophil Count 3.4 X10^3/uL (2.0-7.7); Basophil# 0.03 X10^3/uL; Basophil% 0.6 % (0-1); Eosinophil# 0.12 X10^3/uL; Eosinophils% 2.4 % (0-5); Hematocrit 42.5 % (37-47); Hemoglobin 13.7 g/dL (12.0-15.0); Lymphocyte # 1.22 X10^3/ul (0.83-4.51); Lymphocyte % 24.6 % (19-41); Mean Corp Hgb Conc 32.2 g/dL (32-36); Mean Corpuscular Volume 96.2 fL (81-99); Monocyte# 0.22 X10^3/uL; Monocyte% 4.4 % (0-10); NRBC Flagged by Analyzer 0 % (0-5); Neutrophil # 3.36 X10^3/uL (2.7-7.7); Neutrophil % 67.8 % (47-70); Platelet Count 252 K/mm3 (150-450); RBC Distribution Width CV 13.7 % (11.6-14.6); RBC Distribution Width SD 48.3 fl (35.1-43.9); Red Blood Count 4.42 M/mm3 (4.2-5.4)
[2022-02-24 12:28] LABS: AST(SGOT) 12 U/L (15-37); Alanine Aminotransfer ALT/SGPT 21 U/L (13-56); Albumin, Serum 3.6 g/dL (3.2-5.0); Alkaline Phosphatase 61 U/L (45-117); Anion Gap 6 (5-15); BUN 19 mg/dL (7-18); BUN/Creat Ratio 21.6 RATIO (10-20); Calcium,Total 9.3 mg/dL (8.5-10.1); Chloride 108 mmol/L (98-107); Cholesterol 135 mg/dL (200); Creatinine, Serum 0.88 mg/dL (0.55-1.02); EST Glomerular Filtration Rate 68 mL/min (>60); Est Glom Filt Rate - Afr Amer 83 mL/min (>60); Globulin 3.7 g/dL (2.2-4.2); Glucose 155 mg/dL (74-106); High Density Lipoprotein 67 mg/dL; Potassium 4.9 mmol/L (3.5-5.1); Protein, Total 7.3 g/dL (6.4-8.2); Sodium Level 143 mmol/L (136-145); Triglycerides 82 mg/dL; Very Low Density Lipoprotein 16 mg/dL (5-40)
[2022-02-24 12:46] LABS: Hemoglobin A1c 6.4 % (3.8-5.6)
[2022-02-24 12:54] LABS: Microalbumin,Random Urine 39.7 mg/L (NO RANGE EST.); Microalbumin:Creatinine Ratio 34.8 mg/g CRE (<30 mg/g CRE)
== END | disposition home or self-care (01) ==
LOC: BIMLAB 09:20
PROVIDERS: PCP Internal Medicine; Visit Provider Internal Medicine
DX: E11.9 Type 2 diabetes mellitus without complications (principal); I10 Essential (primary) hypertension; E78.5 Hyperlipidemia, unspecified
CPT/HCPCS: 36415; 80053; 80061; 82043; 82570; 83036; 85025

== ENCOUNTER → 2022-08-01 | Outpatient (CLI) | payer MEDICARE, BC, SELFPAY ==
[2022-08-01 12:44] LABS: Anion Gap 7 (5-15); BUN 13 mg/dL (7-18); Calcium,Total 9.5 mg/dL (8.5-10.1); Chloride 103 mmol/L (98-107); Creatinine, Serum 0.81 mg/dL (0.55-1.02); EST Glomerular Filtration Rate 75 mL/min (>60); Est Glom Filt Rate - Afr Amer 90 mL/min (>60); Glucose 174 mg/dL (74-106); Sodium Level 138 mmol/L (136-145)
== END | disposition home or self-care (01) ==
LOC: BIMLAB 09:15
PROVIDERS: PCP Internal Medicine; Referring Provider Internal Medicine; Visit Provider Internal Medicine
DX: I10 Essential (primary) hypertension (principal)
CPT/HCPCS: 36415; 80048

== ENCOUNTER → 2022-08-27 | Outpatient (CLI) | payer MEDICARE, BC, SELFPAY ==
--- NOTE | 2022-08-27 08:54 | BD_ITS ---
STUDY: DUAL ENERGY X-RAY ABSORPTIOMETRY / DXA REASON FOR EXAM: Female, 67 years old. SCREENING TECHNIQUE: Bone Mineral Density (BMD) measurements of lumbar spine and bilateral hips were obtained. COMPARISON: Comparison is made with prior study August 21, 2020. FINDINGS: Lumbar Spine (L1-L4): g/cm2 (0.866) / T-score (-1.7) / Z-score (0.3) Findings are suggestive of osteopenia with a moderate fracture risk. Left Femur Total: g/cm2 (0.931) / T-score (-0.1) / Z-score (1.3) Left Femoral Neck: g/cm2 (0.703) / T-score (-1.3) / Z-score (0.3) Right Femur Total: g/cm2 (0.948) / T-score (0.1) / Z-score (1.4) Right Femoral Neck: g/cm2 (0.823) / T-score (-0.2) / Z-score (1.4) The T-Scores on the most recent prior examination were: Lumbar Spine (L1-L4): There has been worsening of bone density since the previous examination. Left Femur Total: which represents a worsening of 1%. Right Femur Total: which represents an improvement of 0.3%. BD/Dexa Bone Density Study IMPRESSION: The patient is considered osteopenic as outlined below according to World [place] Organization (WHO) criteria with a moderate fracture risk. There has been worsening of bone density since the previous examination. Reference Information: The T-score is the number of standard deviations above or below the standard which is normal for young adults at their peak bone mineral density. The World Health Organization (WHO) interprets the T-scores as follows: Above -1 Normal bone density Between -1 and -2.5 Osteopenia Equal to / or below -2.5 Osteoporosis As a practical clinical guideline, osteopenia may be graded as follows: Mild -1 through -1.5 Moderate -1.6 through -2.0 Severe -2.1 through -2.4 The Z-score is the number of standard deviations above or below age-matched controls. A Z-score of less than -1.5 would be considered abnormal. References: 1. NIH Osteoporosis and Related Bone Diseases www osteo.org 2. International Society for Clinical Densitometry www iscd.org 3. National Osteoporosis Foundation www nof.org Electronically Signed: Aric Mcnamara MD at 9:38 EDT ,
== END | disposition home or self-care (01) ==
LOC: OPBD 08:47
PROVIDERS: PCP Internal Medicine; Visit Provider Internal Medicine Hematology & Oncology
DX: Z79.811 Long term (current) use of aromatase inhibitors (principal)
CPT/HCPCS: 77080

== ENCOUNTER → 2022-12-30 | Outpatient (CLI) | payer MEDICARE, BC, SELFPAY ==
--- NOTE | 2022-12-30 09:10 | BI_ITS ---
MAMMOGRAPHY - BILATERAL SCREENING REASON FOR EXAM: Female, 67 years old. Routine annual screening examination. PERTINENT HISTORY: Personal history of breast cancer. Prior right lumpectomy and radiation treatment. TECHNIQUE: Digital bilateral breast deisy (3D mammographic acquisition) in the CC and MLO projections. 2-D mediolateral oblique (MLO) and craniocaudad (CC) views of both breasts were obtained. CAD: Full Field Digital Mammography with Computer Added Detection was performed. COMPARISON: Comparison is made with prior study dated December 16, 2021 and December 13, 2020. FINDINGS: Breast Composition: The breasts are heterogeneously dense, which may obscure small masses. There are no dominant masses or suspicious calcifications. Once again, the patient is status post lumpectomy in the deep upper slightly outer aspect of the right breast with resultant postsurgical scarring. No other significant abnormalities are identified. There has been no significant change since the prior study. BI/SCRN MAMM (CAD)W/DEISY BILAT IMPRESSION: Stable bilateral screening mammogram. Yearly follow-up mammogram recommended. (A) ASSESSMENT CATEGORY: BIRADS Category 2: Benign. A letter regarding these results will be sent to the patient by the facility within 30 days. Approximately 10% of breast cancers are not detected by mammography. A normal mammogram should not delay biopsy of a clinically suspicious abnormality. [id number] Electronically Signed: Aric Mcnamara MD at 11:27 EDT ,
== END | disposition home or self-care (01) ==
LOC: OPBI 09:09
PROVIDERS: PCP Internal Medicine; Referring Provider Internal Medicine Hematology & Oncology; Visit Provider Internal Medicine Hematology & Oncology
DX: Z12.31 Encounter for screening mammogram for malignant neoplasm of breast (principal); C50.111 Malignant neoplasm of central portion of right female breast
CPT/HCPCS: 77063; 77067

== ENCOUNTER → 2023-10-07 | Outpatient (CLI) | payer MEDICARE, SELFPAY ==
[2023-10-07 09:20] LABS: Cholesterol 121 mg/dL (200); High Density Lipoprotein 65 mg/dL; Triglycerides 95 mg/dL; Very Low Density Lipoprotein 19 mg/dL (5-40)
[2023-10-07 09:48] LABS: Vitamin D,25 Hydroxy 66.8 ng/mL
== END | disposition home or self-care (01) ==
PROVIDERS: Internal Medicine Endocrinology, Diabetes & Metabolism; PCP Internal Medicine; Referring Provider Internal Medicine; Visit Provider Internal Medicine
DX: E78.5 Hyperlipidemia, unspecified (principal); E55.9 Vitamin D deficiency, unspecified
CPT/HCPCS: 36415; 80061; 82306

== ENCOUNTER → 2024-01-04 | Outpatient (CLI) | payer MEDICARE, SELFPAY ==
--- NOTE | 2024-01-04 10:01 | BI_ITS ---
MAMMOGRAPHY - BILATERAL SCREENING REASON FOR EXAM: Female, 68 years old. Routine annual screening examination. PERTINENT HISTORY: Personal history of breast cancer. Prior right lumpectomy with radiation. TECHNIQUE: Digital bilateral breast deisy (3D mammographic acquisition) in the CC and MLO projections. 2-D mediolateral oblique (MLO) and craniocaudad (CC) views of both breasts were obtained. CAD: Full Field Digital Mammography with Computer Added Detection was performed. COMPARISON: Comparison is made with prior study December 30, 2022 and December 16, 2021. FINDINGS: Breast Composition: The breasts are heterogeneously dense, which may obscure small masses. There are no dominant masses or suspicious calcifications. Once again, the patient status post lumpectomy in the deep upper slightly lateral aspect of the right breast. Postoperative changes are seen at the lumpectomy site. No other significant abnormalities are identified. There has been no significant change since the prior study. BI/SCRN MAMM (CAD)W/DEISY BILAT IMPRESSION: Stable bilateral screening mammogram. Yearly follow-up mammogram recommended. (A) ASSESSMENT CATEGORY: BIRADS Category 2: Benign. A letter regarding these results will be sent to the patient by the facility within 30 days. Approximately 10% of breast cancers are not detected by mammography. A normal mammogram should not delay biopsy of a clinically suspicious abnormality. [id number] Electronically Signed: Aric Mcnamara MD at 10:36 EDT ,
== END | disposition home or self-care (01) ==
LOC: OPBI 10:01
PROVIDERS: PCP Internal Medicine; Referring Provider Internal Medicine Hematology & Oncology; Visit Provider Internal Medicine Hematology & Oncology
DX: Z12.31 Encounter for screening mammogram for malignant neoplasm of breast (principal); Z85.3 Personal history of malignant neoplasm of breast
CPT/HCPCS: 77063; 77067

== ENCOUNTER → 2024-07-04 | Outpatient (CLI) | payer MEDICARE, SELFPAY ==
[2024-07-04 10:58] LABS: Anion Gap 6 (5-15); BUN 12 mg/dL (7-18); BUN/Creat Ratio 15.4 RATIO (10-20); Calcium,Total 9.3 mg/dL (8.5-10.1); Chloride 106 mmol/L (98-107); Creatinine, Serum 0.78 mg/dL (0.55-1.02); EST Glomerular Filtration Rate 78 mL/min (>60); Est Glom Filt Rate - Afr Amer 94 mL/min (>60); Glucose 161 mg/dL (74-106); Potassium 4.8 mmol/L (3.5-5.1); Sodium Level 140 mmol/L (136-145)
== END | disposition home or self-care (01) ==
LOC: BIMLAB 08:44
PROVIDERS: PCP Internal Medicine; Referring Provider Internal Medicine; Visit Provider Internal Medicine
DX: I10 Essential (primary) hypertension (principal)
CPT/HCPCS: 36415; 80048

== ENCOUNTER → 2024-10-07 | Outpatient (CLI) | payer MEDICARE, SELFPAY ==
[2024-10-07 10:55] LABS: Cholesterol 125 mg/dL (<=200); High Density Lipoprotein 59 mg/dL; Low Density Lipoprotein Calc. 49 mg/dL; Triglycerides 84 mg/dL; Very Low Density Lipoprotein 17 mg/dL (5-40); cholesterol:hdl ratio screen 2.11
== END | disposition home or self-care (01) ==
LOC: LAB 09:03
PROVIDERS: PCP Internal Medicine; Referring Provider Internal Medicine; Visit Provider Internal Medicine
DX: E78.5 Hyperlipidemia, unspecified (principal)
CPT/HCPCS: 36415; 80061

== ENCOUNTER → 2025-01-05 | Outpatient (CLI) | payer MEDICARE, SELFPAY ==
--- NOTE | 2025-01-05 09:55 | BI_ITS ---
EXAM: SCRN MAMM (CAD)W/DEISY BILAT DATE: 01/05/2025 CLINICAL HISTORY: F, Age 69 y/o , ANNUAL SCREENING Personal history of breast cancer. Prior right lumpectomy with radiation. TECHNIQUE: SCRN MAMM (CAD)W/DEISY BILAT COMPARISON: Prior exam(s) dated January 04, 2024.. FINDINGS: TISSUE DENSITY: The breasts are heterogeneously dense, which may obscure small masses. Bilateral Breast Mammographic Findings: No significant masses, calcifications or other abnormalities are identified. Once again, the patient is status post lumpectomy in the deep upper slightly lateral aspect of the right breast. Postoperative changes and scarring seen at the lumpectomy site. No suspicious masses, areas of developing architectural distortion, or suspicious calcifications. There has been no significant interval change. BI/SCRN MAMM (CAD)W/DEISY BILAT IMPRESSION: Stable examination. OVERALL FINAL ASSESSMENT BI-RADS 2: BENIGN RECOMMENDATION: Routine annual follow-up in 1 Year A letter with findings and recommendations will be mailed to the patient. Reading Location: [facility]
--- NOTE | 2025-01-05 09:55 | BI_ITS ---
EXAM: SCRN MAMM (CAD)W/DEISY BILAT DATE: 01/05/2025 CLINICAL HISTORY: F, Age 69 y/o , ANNUAL SCREENING Personal history of breast cancer. Prior right lumpectomy with radiation. TECHNIQUE: SCRN MAMM (CAD)W/DEISY BILAT COMPARISON: Prior exam(s) dated January 04, 2024.. FINDINGS: TISSUE DENSITY: The breasts are heterogeneously dense, which may obscure small masses. Bilateral Breast Mammographic Findings: No significant masses, calcifications or other abnormalities are identified. Once again, the patient is status post lumpectomy in the deep upper slightly lateral aspect of the right breast. Postoperative changes and scarring seen at the lumpectomy site. No suspicious masses, areas of developing architectural distortion, or suspicious calcifications. There has been no significant interval change. BI/SCRN MAMM (CAD)W/DEISY BILAT IMPRESSION: Stable examination. OVERALL FINAL ASSESSMENT BI-RADS 2: BENIGN RECOMMENDATION: Routine annual follow-up in 1 Year A letter with findings and recommendations will be mailed to the patient. Reading Location: [facility]
== END | disposition home or self-care (01) ==
LOC: OPBI 09:54
PROVIDERS: PCP Internal Medicine; Referring Provider Internal Medicine Hematology & Oncology; Visit Provider Internal Medicine Hematology & Oncology
DX: Z12.31 Encounter for screening mammogram for malignant neoplasm of breast (principal); Z85.3 Personal history of malignant neoplasm of breast
CPT/HCPCS: 77063; 77067

== ENCOUNTER → 2025-05-04 | Outpatient (CLI) | payer MEDICARE, SELFPAY ==
--- NOTE | 2025-05-04 14:26 | BD_ITS ---
PROCEDURE: DEXA BONE DENSITY STUDY 05/04/2025 REASON FOR EXAM: POST MENOPAUSAL F, age 70 y/o . Postmenopausal. TECHNIQUE: Procedure Code: BDDBD Modality: DX Procedure: DEXA BONE DENSITY STUDY COMPARISON: August 27, 2022. FINDINGS: BMD and T-SCORES Lumbar spine: 0.897 g/cm2, T-score -1.4 Levels: L1 through L4 Change from prior: Improvement of 3.5%. Left femoral neck: 0.746 g/cm2, T-score -0.9 Femoral neck comparison data not recommended for monitoring change. Left total hip: 0.940 g/cm2, T-score 0.0 Change from prior: Improvement of 0.9%. Right femoral neck: 0.831 g/cm2, T-score -0.2 Femoral neck comparison data not recommended for monitoring change. Right total hip: 0.963 g/cm2, T-score 0.2 Change from prior: Improvement of 1.6%. The World Health Organization has defined the following categories based on bone density: Normal bone density: T-score equal to or greater than -1.0 Osteopenia: T-score between -1.0 and -2.5 Osteoporosis: T-score equal to or less than -2.5 FRAX (or Comparable) Fracture Risk Assessment: 10 Year Probability of Fracture: Major Osteoporotic Fracture: 7.5% Hip Fracture: 0.7% (Note: FRAX is not to be reported in setting of normal range bone density, osteoporosis on DEXA, known history of osteoporosis, prior osteoporotic hip or vertebral fracture, or for any patient undergoing pharmacological treatment for bone loss.) The National Osteoporosis Foundation (NOF) recommends pharmacological treatment for patients with a FRAX 10-year risk of 3% or higher for a hip fracture, or 20% or higher for a major osteoporotic fracture, to prevent osteoporosis and reduce fracture risk. The patient does meet the pharmacological treatment recommendations for prevention of osteoporosis. BD/Dexa Bone Density Study IMPRESSION: OSTEOPENIA. Recommend follow-up as clinically warranted. Reading Location: [place] [id number]
--- OUTSIDE RECORDS SUMMARY | 2025-05-04 18:07 | XMS RPT_ITS | CCD ---
Author Organization [facility] CliniSyct Care Team Providers Care Electric Detector Operator Name Role Phone Dr. Shereen Shoemaker Primary Care Provider [phone] Dr. Shereen Shoemaker Attending Provider [phone] Dr. Shereen Shoemaker Referring Provider [phone])2 Nurse, Surgery Attending Provider Unavailable Friend, Dr. Wilcox Attending Provider [phone] Friend, Dr. Wilcox Other Provider [phone] Dr. Shereen Shoemaker Primary Care Provider [phone]) Sahara, Dr. Regan Referring Provider [phone])2 Dr. Frances Bolivar Attending Provider Dr. Shereen Shoemaker Attending Provider [phone])2 Dr. Shereen Shoemaker Primary Care Provider 1(33 0) Dr. Shereen Shoemaker Referring Provider [phone])2 Dr. Shereen Shoemaker Primary Care Provider 1(33 0) Dr. Shereen Shoemaker Attending Provider [phone])2 Dr. Shereen Shoemaker Referring Provider [phone])2 Dr. Shereen Shoemaker Primary Care Provider [phone] Dr. Shereen Shoemaker Attending Provider [phone])2 Sahara, Dr. Regan Referring Provider [phone])2 Dr. Shereen Shoemaker Primary Care Provider 1(33 0) Dr. Shereen Shoemaker Referring Provider [phone])2 PETEY Wallace Attending Provider Dr. Frances Bolivar Attending Provider Dr. Shereen Shoemaker Attending Provider [phone] Sahara BECKWITH, Dr. Regan Primary Care Provider Sahara BECKWITH, Dr. Regan Attending Provider 1(33 0) Sahara BECKWITH, Dr. Regan Referring Provider 1(33 0) Katt BECKWITH, Dr. Daniels Attending Provider NOT, DEFINED Referring Provider Unavailable Rip BECKWITH, [facility] Unavailable Shereen Shoemaker MD B Unavailable [phone] Sahara BECKWITH, Dr. Regan Primary Care Provider Sahara BECKWITH, Dr. Regan Referring Provider [phone] 0) Sahara BECKWITH, Dr. Regan Attending Provider 1(33 0) Katt BECKWITH, Dr. Daniels Referring Provider Oleghe, Efewongbe Primary Care Unavailable Oleghe, Efewongbe Attending Unavailable Oleghe, Efewongbe Referring Unavailable Oleghe, Efewongbe Primary Care Unavailable Oleghe, Efewongbe Attending Unavailable Oleghe, Efewongbe Referring Unavailable Frances Bolivar Attending Unavailable Oleghe, Efewongbe Primary Care Unavailable Oleghe, Efewongbe Referring Unavailable Oleghe, Efewongbe Primary Care Unavailable Oleghe, Efewongbe Attending Unavailable Oleghe, Efewongbe Referring Unavailable Oleghe, Efewongbe Primary Care Unavailable Oleghe, Efewongbe Attending Unavailable Oleghe, Efewongbe Referring Unavailable Oleghe, Efewongbe Primary Care Unavailable Frances Bolivar Attending Unavailable Oleghe, Efewongbe Referring Unavailable Oleghe, Efewongbe Primary Care Unavailable Oleghe, Efewongbe Attending Unavailable Oleghe, Efewongbe Referring Unavailable Oleamaurye, Efewongbe Primary Care Unavailable Tommiee, Efewongbe Attending Unavailable Sahara, Efewongbe Referring Unavailable Katt Armindashannan Attending Unavailable SamanthaFrances green Referring Unavailable Sahara, Efhuanongbe Primary Care Unavailable Eagleus, Arimndashannan Attending Unavailable NOT, DEFINED Referring Unavailable Olemg, Efewongbe Primary Care Unavailable Allergies Allergy Classification Reported Allergen(s) Allergy Type Date of Onset Reaction(s) Facility (9 sources) Cephalexin Drug Allergy 2 [facility] (9 sources) Niacin Drug Allergy 2 [facility] (9 sources) Penicillin V Drug Allergy 2 [facility] (2 sources) BEES Allergy to substance 2 [facility] Work Phone: (7 sources) bee venom protein (honey bee) Allergy to substance 2 [facility] (1 source) Penicillin V Drug Allergy 4 Rash [facility] (1 source) STINGING INSECTS Food allergy (disorder) 4 [facility] (1 source) Cephalexin Drug Allergy 5 [facility] (1 source) Niacin Drug Allergy 5 [facility] (1 source) Penicillin Drug Allergy 5 [facility] (1 source) bee venom protein (honey bee) Drug allergy (disorder) 5 [facility] Medications Current Medications Medication Drug Class(es) Dates Sig (Normalized) Sig (Original) aspirin 81 mg delayed release oral tablet (19 sources) Platelet Aggregation Inhibitor, Nonsteroidal Anti-inflammatory Drug Start: 07-10-2017 Aspirin (Adult Low Dose Aspirin) 81 mg tablet,delayed release (DR/EC) Active 81 mg PO DAILY 0 July 10, 2017 1:00am Start: 05-22-2017 End: 07-10-2017 take 1 tablet by mouth once daily Aspirin 325 MG tablet Discontinued 325 mg PO DAILY@0800 May 22, 2017 1:00am July 10, 2017 10:08am Aspirin Children s 81 mg chewable tablet active Genie Jean LPN [facility] calcium citrate 1500 mg / cholecalciferol 250 unt oral tablet (9 sources) Vitamin D Start: 07-10-2017 Calcium Citrate-Vitamin D3 (Citracal + D Maximum) 315-250 mg-unit tablet Active 1 {tbl} PO TWICE A DAY July 10, 2017 1:00am cholecalciferol 0.125 mg oral tablet (9 sources) Vitamin D Start: 08-26-2021 take 1 tablet by mouth once daily Cholecalciferol (Vitamin D3) (Vitamin D3) 125 mcg (5,000 unit) Tablet Active 125 ug PO DAILY August 26, 2021 12:00am Citracal + D Maximum (calcium citrate-vitamin d3) tablet (1 source) Citracal + D Max imum (calcium citrate-vitamin d3) tablet active Genie Terrytonio [employer] [facility] glimepiride 2 mg oral tablet (20 sources) Sulfonylurea Start: 01-16-2025 take 1 tablet by mouth twice daily Glimepiride 2 mg tablet Active 2 mg PO TWICE A DAY 180 90 3 January 16, 2025 9:04am Start: 08-15-2019 End: 01-16-2025 take 1 tablet by mouth once daily at breakfast Glimepiride 2 mg tablet Discontinued 2 mg PO EVERY MORNING 90 3 April 25, 2024 5:28pm January 16, 2025 9:04am administer with breakfast Vitamin D3 (cholecalciferol (vitamin d3)) capsule (1 source) Vitamin D3 (chol ecalciferol (vitamin d3)) capsule active Genie Jean [facility] Completed/Discontinued Medications Medication Drug Class(es) Dates Sig (Normalized) Sig (Original) [id number] 200 actuat albuterol 0.09 mg/actuat metered dose inhaler (4 sources) beta2-Adrenergic Agonist Start: 10-03-2022 End: 01-08-2023 Albuterol Sulfate 90 mcg/actuation HFA aerosol inhaler Discontinued 2 NMA INHALATION EVERY 6 HOURS as needed for cough/wheeze/SOB 8.5 0 October 03, 2022 12:00am January 08, 2023 2:22pm Start: 10-03-2022 take 1 puff(s) by in halation every six hours Albuterol Sulfate Active 2 PUFF INHALATION EVERY 6 HOURS 8.5 October 03, 2022 12:00am anastrozole 1 mg oral tablet (20 sources) Aromatase Inhibitor Start: 05-22-2017 End: 12-05-2024 take 1 tablet by mouth once daily Anastrozole 1 mg tablet Discontinued 1 mg PO DAILY 90 3 November 23, 2023 9:20am December 05, 2024 11:17am Malignant neoplasm of right female breast Malignant neoplasm of unspecified site of right female breast azithromycin 250 mg oral tablet (20 sources) Macrolide Antimicrobial Start: 10-03-2022 End: 01-08-2023 Azithromycin 250 mg tablet Discontinued 250 mg PO DAILY 6 0 October 03, 2022 12:00am January 08, 2023 2:22pm 2 tab x1 day, 1 tab x4 days Start: 12-16-2017 End: 12-16-2017 take 1 tablet by mouth once daily Azithromycin 250 mg tablet Discontinued 250 mg PO daily 4 4 0 December 16, 2017 12:00am December 19, 2017 12:00am December 16, 2017 3:46pm Start: 12-11-2017 End: 12-14-2017 take 1 tablet by mouth once daily Azithromycin 500 mg tablet Discontinued 500 mg PO daily 3 3 0 December 11, 2017 12:00am December 13, 2017 12:00am December 14, 2017 12:06am benzonatate 150 mg oral capsule (4 sources) Non-narcotic Antitussive Start: 10-03-2022 End: 01-08-2023 take 1 capsule by mouth three times daily as needed for cough Benzonatate 150 mg capsule Discontinued 150 mg PO THREE TIMES A DAY as needed for cough 30 October 03, 2022 12:00am January 08, 2023 2:22pm ciprofloxacin 500 mg oral tablet (18 sources) Quinolone Antimicrobial Start: 12-26-2019 End: 12-31-2019 take 1 tablet by mouth twice daily Ciprofloxacin Hcl 500 mg tablet Discontinued 500 mg PO TWICE A DAY 10 5 0 December 26, 2019 12:00am December 30, 2019 12:00am December 31, 2019 12:03am Start: 10-20-2019 End: 12-13-2019 take 1 tablet by mouth every twelve hours Ciprofloxacin Hcl 500 mg tablet Discontinued 500 mg PO Q12H 14 October 20, 2019 12:00am December 13, 2019 10:25am clindamycin 300 mg oral capsule (9 sources) Lincosamide Antibacterial Start: 12-20-2019 End: 12-27-2019 take 1 capsule by mouth twice daily Clindamycin Hcl 300 mg capsule Discontinued 300 mg PO TWICE A DAY 14 7 0 December 20, 2019 12:00am December 26, 2019 12:00am December 27, 2019 12:03am doxycycline hyclate 100 mg oral capsule (9 sources) Tetracycline-class Drug Start: 05-18-2020 End: 05-28-2020 take 1 capsule by mouth twice daily Doxycycline Hyclate 100 mg capsule Discontinued 100 mg PO TWICE A DAY 20 10 0 May 18, 2020 1:00am May 27, 2020 1:00am May 28, 2020 1:02am Acute sinusitis, unspecified Fluad Quad (65yr up)(PF) 60 mcg (15 mcg x 4)/0.5mL IM syringe (flu vac (1 source) Start: 02-08-2021 End: 02-08-2021 Fluad Quad (65yr up)(PF) 60 mcg (15 mcg x 4)/0.5mL IM syringe (flu vac Discontinued 60 MCG IM ONCE 0.5 February 08, 2021 7:57am February 08, 2021 8:52am Flucelvax Quad (PF) (flu vac qs 2017(4 yr up)CD(PF)) 60 mcg (15 mcg x (1 source) Start: 03-15-2018 End: 03-15-2018 inject 15 ug by intramuscular injection once Flucelvax Quad (PF) (flu vac qs 2017(4 yr up)CD(PF)) 60 mcg (15 mcg x Discontinued 0.5 ML IM ONCE 1 March 15, 2018 10:04am March 15, 2018 10:43am levoFLOXacin 500 mg oral tablet (9 sources) Quinolone Antimicrobial Start: 12-16-2017 End: 01-18-2018 take 1 tablet by mouth once daily Levofloxacin (Levaquin) 500 mg tablet Discontinued 500 mg PO daily 5 0 December 16, 2017 12:00am January 18, 2018 8:09am lisinopril 30 mg oral tablet (20 sources) Angiotensin Converting Enzyme Inhibitor Start: 08-15-2019 End: 12-05-2024 take 1 tablet by mouth once daily Lisinopril 30 mg tablet Discontinued 30 mg PO DAILY 90 November 19, 2023 1:47pm December 05, 2024 9:10am TAKE 1 TABLET DAILY Start: 01-18-2018 End: 08-15-2019 Lisinopril 20 mg tablet Disc ontinued 0 .ROUTE .COMPLEX 90 July 26, 2019 4:27pm August 15, 2019 9:54am TAKE 1 TABLET DAILY Start: 05-22-2017 End: 01-18-2018 take 1 tablet by mouth once daily Lisinopril 10 mg tablet Discontinued 10 mg PO DAILY 90 October 22, 2017 10:48am January 18, 2018 8:41am meclizine hydrochloride 25 mg oral tablet (9 sources) Antiemetic Start: 12-31-2018 End: 02-07-2019 Meclizine 25 mg tablet Discontinued 25 mg PO 2 to 3 times per day as needed for vertigo 30 December 31, 2018 12:00am February 07, 2019 8:35am meloxicam 15 mg oral tablet (3 sources) Nonsteroidal Anti-inflammatory Drug Start: 10-05-2023 End: 01-04-2024 take 1 tablet by mouth once daily Meloxicam 15 mg tablet Discontinued 15 mg PO DAILY 30 October 05, 2023 12:00am January 04, 2024 8:47am metFORMIN hydrochloride 1000 mg oral tablet (20 sources) Biguanide Start: 08-04-2017 End: 08-23-2024 take 1 tablet by mouth twice daily Metformin 1,000 mg tablet Discontinued 1000 mg PO TWICE A DAY 180 October 06, 2023 5:02pm August 23, 2024 1:51pm TAKE 1 TABLET TWICE A DAY Start: 05-22-2017 End: 08-04-2017 Metformin 1,000 MG tablet Discontinued 500 mg PO DAILY 30 August 04, 2017 10:28am August 04, 2017 12:38pm Start: 05-22-2017 End: 08-04-2017 take 500 mg by mouth once daily Metformin Discontinued 500 MG PO DAILY August 04, 2017 10:28am August 04, 2017 12:38pm naproxen sodium 220 mg oral tablet (9 sources) Nonsteroidal Anti-inflammatory Drug Start: 10-20-2017 End: 01-18-2018 take 1 tablet by mouth twice daily Naproxen Sodium (Aleve) 220 mg tablet Discontinued 220 mg PO TWICE A DAY October 20, 2017 12:00am January 18, 2018 8:09am ondansetron 4 mg oral tablet (9 sources) Serotonin-3 Receptor Antagonist Start: 12-31-2018 End: 01-06-2019 take 1 tablet by mouth three times daily as needed for nausea and vomiting Ondansetron Hcl (Zofran) 4 mg tablet Discontinued 4 mg PO THREE TIMES A DAY as needed for nausea and vomiting 20 5 0 December 31, 2018 12:00am January 04, 2019 12:00am January 06, 2019 12:06am pioglitazone 30 mg oral tablet (20 sources) Peroxisome Proliferator Receptor alpha Agonist, Peroxisome Proliferator Receptor gamma Agonist, Thiazolidinedione Start: 10-06-2017 End: 05-23-2024 take 1 tablet by mouth once daily Pioglitazone 30 mg tablet Discontinued 30 mg PO DAILY September 22, 2023 1:55pm May 23, 2024 3:34pm TAKE 1 TABLET DAILY Start: 08-06-2017 End: 10-06-2017 Pioglitazone 30 mg tablet Discontinued 15 mg PO DAILY 90 August 07, 2017 9:23am October 06, 2017 9:02am Start: 08-06-2017 End: 10-06-2017 take 15 mg by mouth once daily Pioglitazone Discontinu ed 15 MG PO DAILY August 07, 2017 9:23am October 06, 2017 9:02am Start: 08-06-2017 End: 08-06-2017 take 1 tablet by mouth once daily Pioglitazone 30 mg tablet Discontinued 30 mg PO DAILY 90 August 06, 2017 3:41pm August 06, 2017 7:24pm Start: 05-22-2017 End: 08-06-2017 take 1 tablet by mouth once daily Pioglitazone 15 MG tablet Discontinued 15 mg PO DAILY August 04, 2017 12:37pm August 06, 2017 3:41pm simvastatin 40 mg oral tablet (20 sources) HMG-CoA Reductase Inhibitor Start: 07-10-2017 End: 08-23-2024 take 1 tablet by mouth once daily in the evening Simvastatin 40 mg tablet Discontinued 40 mg PO EVERY EVENING October 06, 2023 5:02pm August 23, 2024 1:51pm Start: 05-22-2017 End: 07-10-2017 take 4 tablets by mouth at bedtime Simvastatin 10 MG tablet Discontinued 40 mg PO AT BEDTIME 30 July 10, 2017 10:09am July 10, 2017 1:49pm Start: 05-22-2017 End: 07-10-2017 take 40 mg by mouth at bedtime Simvastatin Discontinue d 40 MG PO AT BEDTIME July 10, 2017 10:09am July 10, 2017 1:49pm SITagliptin 50 mg oral tablet (9 sources) Dipeptidyl Peptidase 4 Inhibitor Start: 08-15-2019 End: 08-15-2019 take 1 tablet by mouth once daily Sitagliptin Phosphate 50 mg tablet Discontinued 50 mg PO DAILY 30 06August 15, 2019 12:00am August 15, 2019 9:18am Problems Active Problems Problem Classification Problem Date Documented Da te Episodic/Chronic Cancer of breast (20 sources) Malignant neoplasm of female breast; Translations: [Malignant neoplasm of unspecified site of right female breast] Onset: 04-03-2025 Chronic Comment on above: 2015 right lumpectom y, radiation. Diabetes mellitus with complications (1 source) Type 2 diabetes mellitus with other specified complication; Translations: [Type 2 diabetes mellitus with other specified complication] Onset: 04-10-2025 Chronic Diabetes mellitus without complication (20 sources) Type 2 diabetes mellitus; Translations: [Type 2 diabetes mellitus without complications] Chronic Disorders of lipid metabolism (18 sources) Hyperlipidemia; Translations: [Hyperlipidemia, unspecified] Onset: 10-12-2024 Chronic Essential hypertension (20 sources) Hypertensive disorder; Translations: [Essential (primary) hypertension] Onset: 07-22-2024 Chronic Genitourinary symptoms and ill-defined conditions (20 sources) Increased frequency of urination; Translations: [Frequency of micturition] Episodic Immunizations and screening for infectious disease (3 sources) Anti-cyclic citrullinated peptide antibody positive; Translations: [Other specified abnormal immunological findings in serum] 04-06-2024 Episodic Osteoarthritis (9 sources) Arthritis; Translations: [Unspecified osteoarthritis, unspecified site] 08-10-2018 Chronic Other aftercare (9 sources) Prevention status; Translations: [MCFP (current) use of aromatase inhibitors] 06-27-2019 Episodic Other bone disease and musculoskeletal deformities (18 sources) Osteopenia; Translations: [Other specified disorders of bone density and structure, unspecified site] 06-28-2020 Episodic Comment on above: BONE DENSITY 09/23/14 T SCORE -2.2 LUMBAR SPINE AND -15 FEMORAL NECK. REPEAT DEXA 05/29/17 SHOWED STABLE OSTEOPENIA --PER CHART NOTE FROM [facility]; TEO ADAN Other bone disease and musculoskeletal deformities (8 sources) Other specified disorders of bone density and structure, unspecified site; Translations: [Disorder of bone and cartilage, unspecified] Onset: 04-03-2025 Episodic Other lower respiratory disease (4 sources) Respiratory tract infection; Translations: [Other specified respiratory disorders] 10-03-2022 Episodic Other lower respiratory disease (1 source) Other specified respiratory disorders; Translations: [Other diseases of respiratory system, not elsewhere classified] 10-03-2022 Episodic Other non-traumatic joint disorders (10 sources) Pain in left knee; Translations: [Left knee pain] Episodic Other non-traumatic joint disorders (3 sources) Joint pain in right hand; Translations: [Pain in joints of right hand] 11-18-2023 Episodic Other screening for suspected conditions (not mental disorders or infectious disease) (10 sources) Patient encounter status; Translations: [Encounter for screening for malignant neoplasm of colon] Onset: 01-13-2025 07-08-2021 Episodic Residual codes; unclassified (6 sources) Bilateral lower limb edema; Translations: [Localized edema] 10-10-2024 Episodic Residual codes; unclassified (1 source) Asymptomatic menopausal state; Translations: [Asymptomatic menopausal state] Onset: 04-10-2025 Episodic Residual codes; unclassified (1 source) Estrogen receptor positive status [ER+]; Translations: [Estrogen receptor positive status [ER+]] Onset: 04-03-2025 Episodic Skin and subcutaneous tissue infections (9 sources) Abscess of skin of abdomen; Translations: [Cutaneous abscess of abdominal wall] 06-28-2020 Episodic Unclassified (1 source) Z00.00 - Encounter for general adult medical examination without abnormal findings Past or Other Problems Problem Classification Problem Date Documented Date Episodic/Chronic Other connective tissue disease (1 source) Tenosynovitis of fingers; Translations: [Trigger finger, unspecified finger] Onset: 11-23-2023 11-23-2023 Episodic Results Test Name Value Interpretation Reference Range Facility Internal Medicine Office Vis nevaeh 04-10-2025 Internal Medicine Office Visit [facility] Internal Medicine [address] [place] [address] [place] [address] OFFICE VISIT Date of Service: 04/10/25 MR#: [id number] Acct: [id number] Name: CHIOMA LOCO Rep #: [id number] : 1955 Provider: Dr. Shereen rodriguez MD Age/Sex: 70/F [place] [facility] Status: Signed Intake Vital Signs 01/16/25 08:50 04/03/25 13:37 04/10/25 09:46 Height 5 ft 2 in 5 ft 2 in 5 ft 2 in Weight: 227 lb 227 lb BMI 41.5 41.5 BP 110/67 136/68 H Blood Pressure Location Lt brachial Lt brachial Position Sitting Sitting Respiration 18 17 Pulse 83 82 Pulse Source Monitor Monitor Temp 97.4 F L 96.8 F L Temp Source Temporal Pulse Oximetry (%) 96 95 Oxygen Delivery Method room air room air Intake Visit Reasons: 3 M FU Chief Complaint: 3 M FU Is patient in pain?: No Allergies cephalexin (From Keflex) Allergy (Intermediate, Verified 04/10/25 09:47) Rash niacin Allergy (Intermediate, Verified 04/10/25 09:47) Hives penicillin V (From Pen-Vee K) Allergy (Intermediate, Verified 04/10/25 09:47) Hives bee venom protein (honey bee) Allergy (Verified 04/10/25 09:47) Swelling Medications ???Medication ???Instructions ???Recorded ???Confirmed ???Type aspirin 81 mg tablet,delayed 81 mg PO DAILY 07/10/17 04/10/25 H istory release (Adult Low Dose Aspirin) calcium 315 mg (as 1 tab PO BID 07/10/17 04/10/25 His tory citrate)-vitamin D3 6.25 mcg (250 unit) tablet (Citracal + Vitamin D Maximum) cholecalciferol (vitamin D3) 125 125 mcg PO DAILY 08/26/21 04/10/25 History mcg (5,000 unit) tablet (Vitamin D3) pioglitazone 30 mg tablet 30 mg PO DAILY #90 tabs 05/23/24 1 06/10/24 Rx metformin 1,000 mg tablet 1,000 mg PO BID #180 tabs 08/23/24 04/10/25 Rx simvastatin 40 mg tablet 40 mg PO QPM #90 tabs 08/23/2403/25 Rx lisinopril 30 mg tablet 30 mg PO DAILY #90 tabs 12/05/24 1 06/10/24 Rx glimepiride 2 mg tablet 2 mg PO BID 3 months #180 tabs 01/2304/10/25 Rx Have you fallen in the past year?: No PFSH Medical History Anti-cyclic citrullinated peptide antibody positive Pain, joint, hand, right Bilateral lower extremity edema Left knee pain Post-menopausal Wears glasses Cancer High cholesterol History of diverticulitis Shortness of breath on exertion Burning with urination Urinary frequency Health care maintenance Abnormal bruising Hemorrhoids Osteopenia due to cancer therapy Breast cancer HTN (hypertension) Hyperlipidemia Diabetes Surgical History Status post right breast lumpectomy Family History Mother CAD (coronary artery disease) Heart disease Asthma Father CAD (coronary artery disease) Thrombocytopenia Melanoma Myocardial infarction, Onset Age: 83 Brother Suicide Grandfather Colon cancer Sister Asthma Social History number of children: 5 current occupational status: unemployed history of recent travel: No sexually active: No Smoking Status: Never smoker second hand exposure: No alcohol intake: never substance use type: does not use caffeine: No eating out: 1-3 times/week what type of physical activity do you participate in: none and walking frequency: 5-6 times per week seatbelt use: always do you feel safe at home: Yes Female Reproductive History Menstrual Ab spontaneous: 3 HPI HPI Chief Complaint: 3 M FU Details: CHIOMA LOCO, is a 70-year-old female with T2DM, HTN, and osteopenia presenting for follow-up. The patient reports doing well and has no new concerns today. She recently spoke with Dr. Bolivar and together they decided to stop anastrozole. She also discontinued Prolia, with her last injection approximately 6 months ago. Her last bone density scan was in 2022. Her current diabetes regimen includes glimepiride 2 mg BID, metformin 1000 mg BID, and pioglitazone. A1c today is at 6.2 down from 6.9. No concerns for hypoglycemia. She is also taking lisinopril 30 mg daily for HTN. She does not check her blood pressure at home. Blood pressure today at 136/68 mmHg. She received her flu and pneumonia vaccines at [facility]. She has not received the shingles vaccine due to concerns about post-vaccination symptoms, and she acknowledges she likely needs a COVID booster. Her last eye exam was in December, and her last foot exam was in July. ROS Const Constitutional: No body ache, chills, excessive sweating, fatigue, fever(s), frequent falls, headache(s), snoring, weight change, sleep problems, abnormal sleep pattern or change in appetite Eyes Eyes: No blurry visi (more content not included)... Normal [facility] Oncology Visit Reporton Oncology Visit Report [facility] [address] [place] [address] OFFICE VISIT Date of Service: 04/03/25 1334 MR#: [id number] Acct: [id number] Name: CHIOMA LOCO Rep #: [id number] : 1955 From: Frances Bolivar MD Age/Sex: 70/F [place] [facility] [place]: Signed HPI Subjective Date of Service 04/03/25 Chief Complaint Breast cancer on treatment History of Present Illness 69-year-old female who in 2016 moved to [place] from [place]. She was diagnosed with right breast cancer [...] overall tumor grade was 2, ER positive, [place] positive, HER-2 not overexpressed and Oncotype DX was a low risk for recurrent disease. She received adjuvant radiation therapy and completed 10 years of adjuvant hormonal therapy with Arimidex which she tolerated well. Bone density showed osteopenia and she was started on Prolia. She is compliant with vitamin D calcium supplementation also. She has comorbid hypertension, diabetes, dyslipidemia and overweight. She has no first-degree relatives with breast cancers and genetic testing was not done in [facility] Medical History Anti-cyclic citrullinated peptide antibody positive Pain, joint, hand, right Bilateral lower extremity edema Left knee pain Post-menopausal Wears glasses Cancer High cholesterol History of diverticulitis Shortness of breath on exertion Burning with urination Urinary frequency Health care maintenance Abnormal bruising Hemorrhoids Osteopenia due to cancer therapy Breast cancer HTN (hypertension) Hyperlipidemia Diabetes Surgical History Status post right breast lumpectomy Family History Mother CAD (coronary artery disease) Heart disease Asthma Father CAD (coronary artery disease) Thrombocytopenia Melanoma Myocardial infarction, Onset Age: 83 Brother Suicide Grandfather Colon cancer Sister Asthma Social History number of children: 5 current occupational status: unemployed history of recent travel: No sexually active: No Smoking Status: Never smoker second hand exposure: No alcohol intake: never substance use type: does not use caffeine: No eating out: 1-3 times/week what type of physical activity do you participate in: none and walking frequency: 5-6 times per week seatbelt use: always do you feel safe at home: Yes Female Reproductive History Menstrual Ab spontaneous: 3 ROS Constitutional Constitutional: Reports systems reviewed and no addt'l complaints, except as documented; Denies fatigue, fever(s), night sweats or weight loss Eyes Eyes: Reports systems reviewed and no addt'l complaints, except as documented; Denies change in vision ENT HEENT: Reports systems reviewed and no addt'l complaints, except as documented; Denies headache(s) or mouth lesions Cardiovascular Cardiovascular: Reports systems reviewed and no addt'l complaints, except as documented; Denies chest pain with activity, dyspnea on exertion or edema Respiratory/Chest Respiratory/Chest: Reports systems reviewed and no addt'l complaints, except as documented; Denies cough or dyspnea on exertion Gastrointestinal Gastrointestinal: Reports systems reviewed and no addt'l complaints, except as documented; Denies change in bowel habits, hematochezia or melena Genitourinary Genitourinary: Reports systems reviewed and no addt'l complaints, except as documented; Denies dysuria or hematuria Musculoskeletal Musculoskeletal: Reports systems reviewed and no addt'l complaints, except as documented, arthralgias, joint stiffness and other Details: Several months of pain and stiffness of joints of the right hand, seeking advice under PCP ; Denies back pain Integumentary Integumentary: Reports systems reviewed and no addt'l complaints, except as documented; Denies rash Neurologic Neurologic: Reports systems reviewed and no addt'l complaints, except as documented; Denies focal weakness or paresthesias Psychiatric Psychiatric: Reports systems reviewed and no addt'l complaints, except as documented Endocrine Endocrinology: Reports systems reviewed and no addt'l complaints, except as documented; Denies flushing Hematologic/Lymphat ic Hematologic/Lymphat ic: Reports systems reviewed and no addt'l complaints, except as documented; Denies easy bleeding, e (more content not included)... [facility] Internal Medicine Office Vis iton 01-16-2025 Internal Medicine Office Visit [facility] [address] [place], [place] [address] OFFICE VISIT Date of Service: 01/16/25 MR#: [id number] Acct: [id number] Name: CHIOMA LOCO Rep #: [id number] : 1955 Provider: Dr. 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[employer] Required: No Accompanied by: Self Is patient in pain?: No Allergies cephalexin (From Keflex) Allergy (Intermediate, Verified 01/16/25 08:39) Rash niacin Allergy (Intermediate, Verified 01/16/25 08:39) Hives penicillin V (From Pen-Vee K) Allergy (Intermediate, Verified 01/16/25 08:39) Hives bee venom protein (honey bee) Allergy (Verified 01/16/25 08:39) Swelling Medications ???Medication ???Instructions ???Recorded ???Confirmed ???Type aspirin 81 mg tablet,delayed 81 mg PO DAILY 07/10/17 01/16/25 H istory release (Adult Low Dose Aspirin) calcium 315 mg (as 1 tab PO BID 07/10/17 01/16/25 His tory citrate)-vitamin D3 6.25 mcg (250 unit) tablet (Citracal + Vitamin D Maximum) cholecalciferol (vitamin D3) 125 125 mcg PO DAILY 08/26/21 01/16/25 History mcg (5,000 unit) tablet (Vitamin D3) pioglitazone 30 mg tablet 30 mg PO DAILY #90 tabs 05/23/24 0 01/16/25 Rx metformin 1,000 mg tablet 1,000 mg PO BID #180 tabs 08/23/24 01/16/25 Rx simvastatin 40 mg tablet 40 mg PO QPM #90 tabs 08/23/24 Rx anastrozole 1 mg tablet 1 mg PO DAILY #90 tabs 12/05/24 Rx lisinopril 30 mg tablet 30 mg PO DAILY #90 tabs 12/05/24 0 01/16/25 Rx glimepiride 2 mg tablet 2 mg PO BID 3 months #180 tabs 01/16/25 Rx Have you fallen in the past year?: No Nurse's Note: things going well [facility] Medical History Anti-cyclic citrullinated peptide antibody positive Pain, joint, hand, right Bilateral lower extremity edema Left knee pain Post-menopausal Wears glasses Cancer High cholesterol History of diverticulitis Shortness of breath on exertion Burning with urination Urinary frequency Health care maintenance Abnormal bruising Hemorrhoids Osteopenia due to cancer therapy Breast cancer HTN (hypertension) Hyperlipidemia Diabetes Surgical History Status post right breast lumpectomy Family History Mother CAD (coronary artery disease) Heart disease Asthma Father CAD (coronary artery disease) Thrombocytopenia Melanoma Myocardial infarction, Onset Age: 83 Brother Suicide Grandfather Colon cancer Sister Asthma Social History number of children: 5 current occupational status: unemployed history of recent travel: No sexually active: No Smoking Status: Never smoker second hand exposure: No alcohol intake: never substance use type: does not use caffeine: No eating out: 1-3 times/week what type of physical activity do you participate in: none and walking frequency: 5-6 times per week seatbelt use: always do you feel safe at home: Yes Female Reproductive History Menstrual Ab spontaneous: 3 HPI HPI Chief Complaint: Follow-up Details: CHIOMA LOCO, is a 69-year-old female presenting for routine follow-up for diabetes management and hypertension. She has a known history of Type 2 Diabetes Mellitus, for which she is currently taking glimepiride, Actos, and metformin. During the visit, it was noted that her Hemoglobin A1c level has increased slightly to 6.9%. The patient has been attempting to manage her diabetes through increased physical activity by walking regularly and by modifying her diet towards more vegetables and fruits. However, it was discussed that the consumption of sweet fruits might be contributing to the elevation in her A1c levels. The patient also has a history of hypertension and is prescribed lisinopril at a dosage of 30 mg daily. Her blood pressure was recorded as 136/78 mmHg during the visit, which is slightly higher than her previous measurement. The patient reported compliance with her medication. Additionally, the patient has experienced the recurrence of trigger finger, for which she received a corticosteroid injection from a specialist. The patient inquired about the frequency of these injections and was informed that multiple administrations are poss (more content not included)... [facility] Breast imaging reportOrdered By: Aric Mcnamara on 01-05-2025 Study report [facility] Imaging Services [address] [place] [address] SCRN MAMM (CAD)W/DEISY BILAT MR#: [id number] Acct: [id number] Name: CHIOMA LOCO Rep #: [id number] : 1955 F 69 From: Celoi Mcnamara MD PCP: Dr. Shereen Shoemaker MD Status: R EG CLI Study:SCRN MAMM (CAD)W/DEISY BILAT Date of Exa m: 01/05/25 Exam# [id number] Ordering Dr: Frances Bolivar MD EXAM: SCRN MAMM (CAD)W/DEISY BILAT DATE: 01/05/2025 CLINICAL HISTORY: F, Age 69 y/o , ANNUAL SCREENING Personal history of breast cancer. Prior right lumpectomy with radiation. TECHNIQUE: SCRN MAMM (CAD)W/DEISY BILAT COMPARISON: Prior exam(s) dated January 04, 2024.. FINDINGS: TISSUE DENSITY: The breasts are heterogeneously dense, which may obscure small masses. Bilateral Breast Mammographic Findings: No significant masses, calcifications or other abnormalities are identified. Once again, the patient is status post lumpectomy in the deep upper slightly lateral aspect of the right breast. Postoperative changes and scarring seen at the lumpectomy site. No suspicious masses, areas of developing architectural distortion, or suspicious calcifications. There has been no significant interval change. BI/SCRN MAMM (CAD)W/DEISY BILAT IMPRESSION: Stable examination. OVERALL FINAL ASSESSMENT BI-RADS 2: BENIGN RECOMMENDATION: Routine annual follow-up in 1 Year A letter with findings and recommendations will be mailed to the patient. Reading Location: [facility] CC: Dr. Shereen Shoemkaer MD; Dr. Frances Bolivar MD ~ [employer] Dist[employer]: Signed [facility] SCRN MAMM (CAD)W/DEISY BILATo n 01-05-2025 SCRN MAMM (CAD)W/DEISY BILAT [facility] Imaging Services [address] [place] [id number] SCRN MAMM (CAD)W/DEISY BILAT MR#: [id number] Acct: [id number] Name: CHIOMA LOCO Rep #: [id number] : 1955 F 69 From: Aric bellamy MD PCP: Dr. Shereen Shoemaker MD Status: [facility] Study: SCRN MAMM (CAD)W/DEISY BILAT Date of Exam: 12/23 Exam# [id number] Ordering Dr: Frances Bolivar MD EXAM: SCRN MAMM (CAD)W/DEISY BILAT DATE: 01/05/2025 CLINICAL HISTORY: F, Age 69 y/o , ANNUAL SCREENING Personal history of breast cancer. Prior right lumpectomy with radiation. TECHNIQUE: SCRN MAMM (CAD)W/DEISY BILAT COMPARISON: Prior exam(s) dated January 04, 2024.. FINDINGS: TISSUE DENSITY: The breasts are heterogeneously dense, which may obscure small masses. Bilateral Breast Mammographic Findings: No significant masses, calcifications or other abnormalities are identified. Once again, the patient is status post lumpectomy in the deep upper slightly lateral aspect of the right breast. Postoperative changes and scarring seen at the lumpectomy site. No suspicious masses, areas of developing architectural distortion, or suspicious calcifications. There has been no significant interval change. BI/SCRN MAMM (CAD)W/DEISY BILAT IMPRESSION: Stable examination. OVERALL FINAL ASSESSMENT BI-RADS 2: BENIGN RECOMMENDATION: Routine annual follow-up in 1 Year A letter with findings and recommendations will be mailed to the patient. Reading Location: [id number] CC: Dr. Shereen Shoemaker MD; Dr. 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 Work Phone: Internal Medicine Office Vis itousman 10-10-2024 Internal Medicine Office Visit [facility] [address] [place] [address] [place] [address] OFFICE VISIT Date of Service: 10/10/24 MR#: [id number] Acct: [id number] Name: CLAUDYCHIOMA Rep #: [id number] : 1955 Provider: Dr. 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 Is patient in pain?: No Allergies cephalexin (From Keflex) Allergy (Intermediate, Verified 10/10/24 08:54) Rash niacin Allergy (Intermediate, Verified 10/10/24 08:54) Hives penicillin V (From Pen-Vee K) Allergy (Intermediate, Verified 10/10/24 08:54) Hives bee venom protein (honey bee) Allergy (Verified 10/10/24 08:54) Swelling Medications ???Medication ???Instructions ???Recorded ???Confirmed ???Type aspirin 81 mg tablet,delayed 81 mg PO DAILY 07/10/17 10/10/24 H istory release (Adult Low Dose Aspirin) calcium 315 mg (as 1 tab PO BID 07/10/17 10/10/24 His tory citrate)-vitamin D3 6.25 mcg (250 unit) tablet (Citracal + Vitamin D Maximum) cholecalciferol (vitamin D3) 125 125 mcg PO DAILY 08/26/21 10/10/24 History mcg (5,000 unit) tablet (Vitamin D3) lisinopril 30 mg tablet 30 mg PO DAILY #90 tabs 11/19/23 0 10/10/24 Rx anastrozole 1 mg tablet 1 mg PO DAILY #90 tabs 11/23/23 Rx glimepiride 2 mg tablet 2 mg PO QAM #90 tabs 04/25/2409/29 Rx pioglitazone 30 mg tablet 30 mg PO DAILY #90 tabs 05/23/24 0 10/10/24 Rx metformin 1,000 mg tablet 1,000 mg PO BID #180 tabs 08/23/24 10/10/24 Rx simvastatin 40 mg tablet 40 mg PO QPM #90 tabs 08/23/2405/25 Rx Have you fallen in the past year?: No PFSH Medical History Anti-cyclic citrullinated peptide antibody positive Pain, joint, hand, right Bilateral lower extremity edema Left knee pain Post-menopausal Wears glasses Cancer High cholesterol History of diverticulitis Shortness of breath on exertion Burning with urination Urinary frequency Health care maintenance Abnormal bruising Hemorrhoids Osteopenia due to cancer therapy Breast cancer HTN (hypertension) Hyperlipidemia Diabetes Surgical History Status post right breast lumpectomy Family History Mother CAD (coronary artery disease) Heart disease Asthma Father CAD (coronary artery disease) Thrombocytopenia Melanoma Myocardial infarction, Onset Age: 83 Brother Suicide Grandfather Colon cancer Sister Asthma Social History number of children: 5 current occupational status: unemployed history of recent travel: No sexually active: No Smoking Status: Never smoker second hand exposure: No alcohol intake: never substance use type: does not use caffeine: No eating out: 1-3 times/week what type of physical activity do you participate in: none and walking frequency: 5-6 times per week seatbelt use: always do you feel safe at home: Yes Female Reproductive History Menstrual Ab spontaneous: 3 HPI HPI Chief Complaint: Follow-up chronic conditions Details: CHIOMA LOCO, is a 69 F who presents to the office today for follow-up of her chronic medical conditions. No acute concerns at this time. History of diabetes mellitus type 2, A1c today is at 6.8 similar to last check. At her last visit, she had stated that she was going to increase activity however, she has not started actively exercising. Reports compliance with her medication. No concerns for hypoglycemia. History of hypertension, blood pressure today at 122/76 mmHg. Currently on lisinopril which she is taking as prescribed. No chest pain, palpitation or shortness of breath. Other chronic medical conditions are stable. ROS Const Constitutional: No body ache, chills, excessive sweating, fatigue, fever(s), frequent falls, headache(s), snoring, weakness, sleep problems or change in appetite Eyes Eyes: No blurry vision, change in vision, eye pain or Light sensitivity ENT ENT: No abnormal hearing, ear or mastoid pain, tinnitus, nasal congestion, headache(s), neck pain or sore throat Resp Respiratory: No cough, shortness of breath, snoring or wheezing Cardio Cardiology: No chest pain at rest (more content not included)... [facility] - Hematology and Cell countsOrdered By: Shereen Shoemaker on 10-10-2024 HbA1c (Bld) [Mass fraction] 6.8 % High 4.2-6.3 [facility] Calculated very low density lipoprotein (VLDL) cholesterol measurementOrdered By: jorge Shoemaker on 10-07-2024 Calculated very low density lipoprotein (VLDL) cholesterol measurement 17 mg/dL 5-40 [facility] LDL calc ser/plasOrdered By: Renatoleicestercarlos Shoemaker on 10-07-2024 Cholesterol in LDL [Mass/Vol] 49 mg/dL [facility] Comment on above: Ewzboqdffs=221-369 m g/dL & Higher Dqcr=891 mg/dL or greater Lipid Profileon 10-07-2024 CHOL:HDL 2.11 [facility] Comment on above: Performed By: #### L 500.4100 #### [facility] [address] [place], [address] Cholesterol [Mass/Vol] 125 mg/dL Normal <=200 [facility] Comment on above: Result Comment: Chol esterol level, Desirable <200 mg/dL Borderline high cholesterol 200-239 mg/dL High cholesterol >=240 mg/dL Recommendations of the NCEP Adult Treatment Panel for the following risk-cutoff thresholds for the [place] population. Performed By: #### L 500.4100 #### [facility] [address] [place], [address] Cholesterol in HDL [Mass/Vol] 59 mg/dL [facility] Comment on above: Result Comment: Rosy onal Cholesterol Education Program (NCEP) guidelines: <40 mg/dL: Low HDL-cholesterol (major risk factor for CHD) >= 60 mg/dL: High HDL-cholesterol (negative risk factor for CHD) HDL-cholesterol is affected by a number of factors, e.g. smoking, exercise, hormones, sex and age. Performed By: #### L 500.4100 #### [facility] [address] [place], [address] Cholesterol in LDL [Mass/Vol] 49 mg/dL [facility] Comment on above: Result Comment: Bord pibkag=542-908 mg/dL Higher Rmvm=291 mg/dL or greater Performed By: #### L 500.4100 #### [facility] [address] [place], [address] Cholesterol in VLDL [Mass/Vol] 17 mg/dL Normal 5-40 [facility] Comment on above: Performed By: #### L 500.4100 #### [facility] [address] [place], [address] Triglyceride [Mass/Vol] 84 mg/dL Normal [facility] Comment on above: Result Comment: The drugs N-Acetylcysteine and Metamizole may falsely depress this assay. Normal range: <150 mg/dL Borderline High: 150-199 mg/dL High: 200-499 mg/dL Very High: >500 mg/dL Performed By: #### L 500.4100 #### [facility] [address] [place], [place], [facility] Screening total cholesterol/ high density lipoprotein (HDL) cholesterol ratioOrdered By: Shereen Shoemaker on 10-07-2024 Cholesterol.total/Cholest taylor in HDL [Mass ratio] 2.11 {ratio} [facility] Serum or plasma cholesterol in HDL measurement (mass/volume)Ordered By: Shereen Shoemaker on 10-07-2024 Cholesterol in HDL [Mass/Vol] 59 mg/dL >40 [facility] Comment on above: National Cholesterol Education Program (NCEP) guidelines:<40 mg/dL: Low HDL-cholesterol (major risk factor for CHD)>= 60 mg/dL: High HDL-cholesterol (negative risk factor for CHD)HDL-cholesterol is affected by a number of factors, e.g. smoking, exercise, hormones, sex and age. Serum or plasma cholesterol measurement (mass/volume)Ordered By: Shereen Shoemaker on 10-07-2024 Cholesterol [Mass/Vol] 125 mg/dL <201 [facility] Comment on above: Cholesterol level, D esirable <200 mg/dLBorderline high cholesterol 200-239 mg/dLHigh cholesterol >=240 mg/dLRecommendations of the NCEP Adult Treatment Panel for the following risk-cutoff thresholds for the [place] population. Triglycerides measurementOrd ered By: Shereen Shoemaker on 10-07-2024 Triglyceride [Mass/Vol] 84 mg/dL <199 [facility] Comment on above: The drugs N-Acetylcy steine and Metamizole may falsely depress this assay. Normal range: <150 mg/dLBorderline High: 150-199 mg/dLHigh: 200-499 mg/dLVery High: >500 mg/dL Absolute lymphocyte countOrd ered By: Frances Bolivar on 10-03-2024 Lymphocytes Auto (Unsp spec) [#/Vol] 1.49 10*3/uL 0.83-4.51 [facility] Absolute neutrophil countOrd ered By: Frances Bolivar on 10-03-2024 Neutrophils (Bld) [#/Vol] 3.9 10*3/uL 2.0-7.7 [facility] Anion gap in Serum or Plasma Ordered By: Frances Bolivar on 10-03-2024 Anion gap [Moles/Vol] 10 mmol/L 5-15 [facility] Automated lymphocyte count a s percentage of total leukocytesOrdered By: Frances Bolivar on 10-03-2024 Lymphocytes/100 WBC Auto (Unsp spec) 25.3 % 19-41 [facility] BUN/creatinine ratioOrdered By: Frances Bolivar on 10-03-2024 Urea nitrogen/Creatinine [Mass ratio] 20.2 mg/mg High 10-20 [facility] Basophil percentageOrdered B y: Frances Bolivar on 10-03-2024 Basophils/100 WBC (Bld) 0.5 % 0-1 [facility] Bilirubin, totalOrdered By: Frances Bolivar on 10-03-2024 Bilirubin [Mass/Vol] 0.58 mg/dL 0.00-1.30 [facility] CBC W/Diff, Automatedon Absolute Lymph 1.49 X10 3/uL Normal 0.83-4.51 [facility] Comment on above: Performed By: #### L 100.0100, L500.4050 #### [facility] [address] [place], [address] Absolute Neut 3.9 X10 3/uL Normal 2.0-7.7 [facility] Comment on above: Performed By: #### L 100.0100, L500.4050 #### [facility] [address] [place], [address] Basophils/100 WBC (Bld) 0.5 % Normal 0-1 [facility] Comment on above: Performed By: #### L 100.0100, L500.4050 #### [facility] [address] [place], [address] Eosinophils/100 WBC (Bld) 2.4 % Normal 0-5 [facility] Comment on above: Performed By: #### L 100.0100, L500.4050 #### [facility] [address] [place], [address] Erythrocyte distribution width (RBC) [Ratio] 13.2 % Normal 11.6-14.6 [facility] Comment on above: Performed By: #### L 100.0100, L500.4050 #### [facility] [address] [place], [address] Hematocrit (Bld) [Volume fraction] 39.7 % Normal 37-47 [facility] Comment on above: Performed By: #### L 100.0100, L500.4050 #### [facility] [address] [place], [address] Hemoglobin (Bld) [Mass/Vol] 13.8 g/dL Normal 12.0-15.0 [facility] Comment on above: Performed By: #### L 100.0100, L500.4050 #### [facility] [address] [place], [address] IG% 0.200 Normal 0.0-0.9 [facility] Comment on above: Result Comment: IG% - Immature Granulocytes (promyelocytes, myelocytes and metamyelocytes) > 1% indicates that a LEFT SHIFT is Present. Performed By: #### L 100.0100, L500.4050 #### [facility] [address] [place], [address] Lymphocytes/100 WBC (Bld) 25.3 % Normal 19-41 [facility] Comment on above: Performed By: #### L 100.0100, L500.4050 #### [facility] [address] [place], [address] MCH (RBC) [Entitic mass] 31.9 pg Normal 27.0-32.0 [facility] Comment on above: Performed By: #### L 100.0100, L500.4050 #### [facility] [address] [place], [address] MCHC (RBC) [Mass/Vol] 34.8 g/dL Normal 32-36 [facility] Comment on above: Performed By: #### L 100.0100, L500.4050 #### [facility] [address] [place], [address] MCV (RBC) [Entitic vol] 91.7 fL Normal 81-99 [facility] Comment on above: Performed By: #### L 100.0100, L500.4050 #### [facility] [address] [place], [address] Monocytes/100 WBC (Bld) 5.6 % Normal 0-10 [facility] Comment on above: Performed By: #### L 100.0100, L500.4050 #### [facility] [address] [place], [address] Neutrophils/100 WBC (Bld) 66.0 % Normal 47-70 [facility] Comment on above: Performed By: #### L 100.0100, L500.4050 #### [facility] [address] [place], [address] Nucleated RBC (Bld) [#/Vol] 0 10*3/uL Normal 0-5 [facility] Comment on above: Performed By: #### L 100.0100, L500.4050 #### [facility] [address] [place], [address] Platelet mean volume (Bld) [Entitic vol] 8.5 fL Normal 6.2-12.0 [facility] Comment on above: Performed By: #### L 100.0100, L500.4050 #### [facility] [address] [place], [address] Platelets (Bld) [#/Vol] 248 10*3/uL Normal 150-450 [facility] Comment on above: Performed By: #### L 100.0100, L500.4050 #### [facility] [address] [place], [address] RBC (Bld) [#/Vol] 4.33 10*6/uL Normal 4.2-5.4 [facility] Comment on above: Performed By: #### L 100.0100, L500.4050 #### [facility] [address] [place], [address] RDW SD 44.6 fl High 35.1-43.9 [facility] Comment on above: Performed By: #### L 100.0100, L500.4050 #### [facility] [address] [place], [address] WBC (Bld) [#/Vol] 5.9 10*3/uL Normal 4.4-11.0 [facility] [facility] Comment on above: Performed By: #### L 100.0100, L500.4050 #### [facility] [address] [place], [address] Carbon dioxide, total [Moles /volume] in Central venous bloodOrdered By: Frances Bolivar on 10-03-2024 CO2 [Moles/Vol] 22.5 mmol/L 21.0-32.0 [facility] Chloride assayOrdered By: Poly Bolivar on 10-03-2024 Chloride [Moles/Vol] 105 mmol/L 98-108 [facility] Comprehensive Metabolic Prof ilon 10-03-2024 Albumin [Mass/Vol] 4.0 g/dL Normal 3.4-4.8 [facility] Comment on above: Performed By: #### L 100.0100, L500.4050 #### [facility] [address] [place], [address] Albumin/Globulin [Mass ratio] 1.5 {ratio} Normal 0.9-2.4 [facility] Comment on above: Performed By: #### L 100.0100, L500.4050 #### [facility] [address] [place], [address] ALK PHOS 64 U/L Normal 35-104 [facility] Comment on above: Performed By: #### L 100.0100, L500.4050 #### [facility] [address] [place], [address] ALT [Catalytic activity/Vol] 14 U/L Normal <=34 [facility] Comment on above: Performed By: #### L 100.0100, L500.4050 #### [facility] [address] [place], [address] AST [Catalytic activity/Vol] 20 U/L Normal <=31 [facility] Comment on above: Performed By: #### L 100.0100, L500.4050 #### [facility] [address] [place], [address] Bilirubin [Mass/Vol] 0.58 mg/dL Normal 0.00-1.30 [facility] Comment on above: Performed By: #### L 100.0100, L500.4050 #### [facility] [address] [place], [address] BUN/CRE 20.2 RATIO High 10-20 [facility] Comment on above: Performed By: #### L 100.0100, L500.4050 #### [facility] [address] [place], [address] Calcium [Mass/Vol] 9.6 mg/dL Normal 7.6-11.0 [facility] Comment on above: Performed By: #### L 100.0100, L500.4050 #### [facility] [address] [place], [address] Chloride [Moles/Vol] 105 mmol/L Normal 98-108 [facility] Comment on above: Performed By: #### L 100.0100, L500.4050 #### [facility] [address] [place], [address] CO2 [Moles/Vol] 22.5 mmol/L Normal 21.0-32.0 [facility] Comment on above: Performed By: #### L 100.0100, L500.4050 #### [facility] [address] [place], [address] Creatinine [Mass/Vol] 0.73 mg/dL Normal 0.70-1.20 [facility] Comment on above: Performed By: #### L 100.0100, L500.4050 #### [facility] [address] [place], [address] ECRCL 74.08 ml/min Normal 50-250 [facility] Comment on above: Performed By: #### L 100.0100, L500.4050 #### [facility] [address] [place], [address] GAP 10 Normal 5-15 [facility] Comment on above: Performed By: #### L 100.0100, L500.4050 #### [facility] [address] [place], [address] GFR/1.73 sq M.predicted among non-blacks MDRD (S/P/Bld) [Vol rate/Area] 89 mL/min/{1.73_m2} Normal >60 [facility] Comment on above: Result Comment: mL/m in/1.73m2 CKD-EPI Creatinine Equation (2020) Performed By: #### L 100.0100, L500.4050 #### [facility] [address] [place], [address] Globulin (S) [Mass/Vol] 2.7 g/dL Normal 2.2-4.2 [facility] Comment on above: Performed By: #### L 100.0100, L500.4050 #### [facility] [address] [place], [address] Glucose [Mass/Vol] 151 mg/dL High 70-99 [facility] Comment on above: Performed By: #### L 100.0100, L500.4050 #### [facility] [address] [place], [address] Potassium [Moles/Vol] 4.3 mmol/L Normal 3.3-5.1 [facility] Comment on above: Performed By: #### L 100.0100, L500.4050 #### [facility] [address] [place], [address] Sodium [Moles/Vol] 137 mmol/L Normal 133-145 [facility] Comment on above: Performed By: #### L 100.0100, L500.4050 #### [facility] [address] [place], [address] T PROT 6.7 g/dL Normal 5.9-8.4 [facility] Comment on above: Performed By: #### L 100.0100, L500.4050 #### [facility] [address] [place], [address] Urea nitrogen [Mass/Vol] 15 mg/dL Normal 4-19 [facility] Comment on above: Performed By: #### L 100.0100, L500.4050 #### [facility] [address] [place], [address] Eosinophil percentageOrdered By: Frances Bolivar on 10-03-2024 Eosinophils/100 WBC (Bld) 2.4 % 0-5 [facility] Erythrocyte distribution wid th ratioOrdered By: [facility] on 10-03-2024 Erythrocyte distribution width (RBC) [Ratio] 13.2 % 11.6-14.6 [facility] Erythrocyte distribution wid th standard deviationOrdered By: Frances Bolivar on 10-03-2024 Erythrocyte distribution width (RBC) [Ratio] 44.6 fl High 35.1-43.9 [facility] Glomerular filtration rate ( GFR) estimation/1.73 sq m using serum, plasma, or whole bOrdered By: Frances Bolivar on 10-03-2024 GFR/1.73 sq M.predicted among non-blacks MDRD (S/P/Bld) [Vol rate/Area] 89 mL/min/{1.73_m2} >60 [facility] Comment on above: mL/min/1.73m2 CKD-EP I Creatinine Equation (2020) Hematocrit Auto (Bld) [Volum e fraction]Ordered By: Frances Bolivar on 10-03-2024 Hematocrit (Bld) [Volume fraction] 39.7 % 37-47 [facility] Hemoglobin measurementOrdere d By: Frances Bolivar on 10-03-2024 Hemoglobin (Bld) [Mass/Vol] 13.8 g/dL 12.0-15.0 [facility] Immature granulocytes/100 WB C Auto (Bld)Ordered By: Frances Bolivar on 10-03-2024 Immature granulocytes/100 WBC (Bld) 0.200 % 0.0-0.9 [facility] Comment on above: IG% - Immature Granu locytes (promyelocytes, myelocytes and metamyelocytes) > 1% indicates that a LEFT SHIFT is Present. Laboratory - Chemistry and C hemistry - challengeOrdered By: Frances Bolivar on 10-03-2024 AST [Catalytic activity/Vol] 20 U/L <32 [facility] MCV (mean corpuscular volume ) determinationOrdered By: Frances Bolivar on 10-03-2024 MCV (RBC) [Entitic vol] 91.7 fL 81-99 [facility] Mean corpuscular hemoglobin (MCH) determinationOrdered By: Frances Bolivar on 10-03-2024 MCH (RBC) [Entitic mass] 31.9 pg 27.0-32.0 [facility] Mean corpuscular hemoglobin concentration (MCHC) determinationOrdered By: Frances Bolivar on 10-03-2024 MCHC (RBC) [Mass/Vol] 34.8 g/dL 32-36 [facility] Mean platelet volume determi nationOrdered By: Frances Bolivar on 10-03-2024 Platelet mean volume (Bld) [Entitic vol] 8.5 fL 6.2-12.0 [facility] Monocyte percentageOrdered B y: Frances Bolivar on 10-03-2024 Monocytes/100 WBC (Bld) 5.6 % 0-10 [facility] Neutrophil percentageOrdered By: [facility] on 10-03-2024 Neutrophils/100 WBC (Bld) 66.0 % 47-70 [facility] Nucleated red blood cell per centageOrdered By: Frances Bolivar on 10-03-2024 Nucleated RBC/100 WBC (Bld) [Ratio] 0 % 0-5 [facility] Oncology Visit Reporton Oncology Visit Report [facility] [place] [facility] [place] [address] OFFICE VISIT Date of Service: 10/03/24 1321 MR#: [id number] Acct: [id number] Name: CHIOMA LOCO Rep #: [id number] : 1955 From: Frances Bolivar MD Age/Sex: 69/F [place] [facility] [place] [facility] [place]: Signed HPI Subjective Date of Service 10/03/24 Chief Complaint Breast cancer on treatment History of Present Illness 69-year-old female who in 2016 moved to [place] from [place]. She was diagnosed with right breast cancer [...] overall tumor grade was 2, ER positive, [place] positive, HER-2 not overexpressed and Oncotype DX was a low risk for recurrent disease. She received adjuvant radiation therapy and was started on adjuvant hormonal therapy with Arimidex in the Spring 2014 which she tolerated well. Bone density showed osteopenia and she was started on Prolia. She is compliant with vitamin D calcium supplementation also. She has comorbid hypertension, diabetes, dyslipidemia and overweight. She has no first-degree relatives with breast cancers and genetic testing was not done in [facility] Medical History Anti-cyclic citrullinated peptide antibody positive Pain, joint, hand, right Bilateral lower extremity edema Left knee pain Post-menopausal Wears glasses Cancer High cholesterol History of diverticulitis Shortness of breath on exertion Burning with urination Urinary frequency Health care maintenance Abnormal bruising Hemorrhoids Osteopenia due to cancer therapy Breast cancer HTN (hypertension) Hyperlipidemia Diabetes Surgical History Status post right breast lumpectomy Family History Mother CAD (coronary artery disease) Heart disease Asthma Father CAD (coronary artery disease) Thrombocytopenia Melanoma Myocardial infarction, Onset Age: 83 Brother Suicide Grandfather Colon cancer Sister Asthma Social History number of children: 5 current occupational status: unemployed history of recent travel: No sexually active: No Smoking Status: Never smoker second hand exposure: No alcohol intake: never substance use type: does not use caffeine: No eating out: 1-3 times/week what type of physical activity do you participate in: none and walking frequency: 5-6 times per week seatbelt use: always do you feel safe at home: Yes Female Reproductive History Menstrual Ab spontaneous: 3 ROS Constitutional Constitutional: Reports systems reviewed and no addt'l complaints, except as documented; Denies fatigue, fever(s), night sweats or weight loss Eyes Eyes: Reports systems reviewed and no addt'l complaints, except as documented; Denies change in vision ENT HEENT: Reports systems reviewed and no addt'l complaints, except as documented; Denies headache(s) or mouth lesions Cardiovascular Cardiovascular: Reports systems reviewed and no addt'l complaints, except as documented; Denies chest pain with activity, dyspnea on exertion or edema Respiratory/Chest Respiratory/Chest: Reports systems reviewed and no addt'l complaints, except as documented; Denies cough or dyspnea on exertion Gastrointestinal Gastrointestinal: Reports systems reviewed and no addt'l complaints, except as documented; Denies change in bowel habits, hematochezia or melena Genitourinary Genitourinary: Reports systems reviewed and no addt'l complaints, except as documented; Denies dysuria or hematuria Musculoskeletal Musculoskeletal: Reports systems reviewed and no addt'l complaints, except as documented, arthralgias, joint stiffness and other Details: Several months of pain and stiffness of joints of the right hand, seeking advice under PCP ; Denies back pain Integumentary Integumentary: Reports systems reviewed and no addt'l complaints, except as documented; Denies rash Neurologic Neurologic: Reports systems reviewed and no addt'l complaints, except as documented; Denies focal weakness or paresthesias Psychiatric Psychiatric: Reports systems reviewed and no addt'l complaints, except as documented Endocrine Endocrinology: Reports systems reviewed and no addt'l complaints, except as documented; Denies flushing Hematologic/Lymphat ic Hematologic/Lymphat ic: Reports systems reviewed and no addt'l complaints, except as documented; Denies ea (more content not included)... Normal [facility] Platelet countOrdered By: Poly Bolivar on 10-03-2024 Platelets (Bld) [#/Vol] 248 10*3/uL 150-450 [facility] Potassium measurement (mass/ volume)Ordered By: Frances Bolivar on 10-03-2024 Potassium (Unsp spec) [Mass/Vol] 4.3 mmol/L 3.3-5.1 [facility] RBC Auto (Bld) [#/Vol]Ordere d By: Frances Bolivar on 10-03-2024 RBC (Bld) [#/Vol] 4.33 10*6/uL 4.2-5.4 [facility] Serum creatinine measurement (mass/volume)Ordered By: Frances Bolivar on 10-03-2024 Creatinine [Mass/Vol] 0.73 mg/dL 0.70-1.20 [facility] Serum globulin measurementOr dered By: Frances Bolivar on 10-03-2024 Globulin (S) [Mass/Vol] 2.7 g/dL 2.2-4.2 [facility] Serum glucose measurement (m ass/volume)Ordered By: Frances Bolivar on 10-03-2024 Glucose [Mass/Vol] 151 mg/dL High 70-99 [facility] Serum or plasma alanine najera otransferase (ALT) measurementOrdered By: Frances Bolivar on 10-03-2024 ALT [Catalytic activity/Vol] 14 U/L <35 [facility] Serum or plasma albumin oracio urement (mass/volume)Ordered By: Frances Bolivar on 10-03-2024 Albumin [Mass/Vol] 4.0 g/dL 3.4-4.8 [facility] Serum or plasma albumin/glob ulin mass ratioOrdered By: Frances Bolivar on 10-03-2024 Albumin/Globulin [Mass ratio] 1.5 {ratio} 0.9-2.4 [facility] Serum or plasma alkaline angel sphatase measurementOrdered By: Frances Bolivar on 10-03-2024 ALP [Catalytic activity/Vol] 64 U/L 35-104 [facility] Serum or plasma calcium oracio urement (mass/volume)Ordered By: Frances Bolivar on 10-03-2024 Calcium [Mass/Vol] 9.6 mg/dL 7.6-11.0 [facility] Serum or plasma urea nitroge n measurement (mass/volume)Ordered By: Frances Bolivar on 10-03-2024 Urea nitrogen [Mass/Vol] 15 mg/dL 4-19 [facility] Sodium levelOrdered By: Arminda Bolivar on 10-03-2024 Sodium [Moles/Vol] 137 mmol/L 133-145 [facility] Total proteinOrdered By: Leroy Bolivar on 10-03-2024 Protein [Mass/Vol] 6.7 g/dL 5.9-8.4 [facility] White blood cell (WBC) count Ordered By: Frances Bolivar on 10-03-2024 WBC (Bld) [#/Vol] 5.9 10*3/uL 4.4-11.0 [facility] Basic Metabolic Profile (BMP )on 07-04-2024 BUN/CRE 15.4 RATIO Normal 10-20 [facility] Comment on above: Performed By: #### L 500.2500 #### [facility] [address] [place], [address] CA,Total 9.3 mg/dL Normal 8.5-10.1 [facility] Comment on above: Performed By: #### L 500.2500 #### [facility] [address] [place], [address] Chloride [Moles/Vol] 106 mmol/L Normal 98-107 [facility] Comment on above: Performed By: #### L 500.2500 #### [facility] [address] [place], [address] CO2 [Moles/Vol] 28.0 mmol/L Normal 21.0-32.0 [facility] Comment on above: Performed By: #### L 500.2500 #### [facility] [address] [place], [address] Creatinine [Mass/Vol] 0.78 mg/dL Normal 0.55-1.02 [facility] Comment on above: Result Comment: The validity of the calculated GFR GFRAA in patients over 70 years has not been determined. Clinical correlation is essential. Performed By: #### L 500.2500 #### [facility] [address] [place], [address] EST GFR - AA 94 mL/min Normal >60 [facility] Comment on above: Result Comment: Afri can Martiniquais GFR Calc Performed By: #### L 500.2500 #### [facility] [address] [place], [address] GAP 6 Normal 5-15 [facility] Comment on above: Performed By: #### L 500.2500 #### [facility] [address] [place], [address] GFR/1.73 sq M.predicted among non-blacks MDRD (S/P/Bld) [Vol rate/Area] 78 mL/min/{1.73_m2} Normal >60 [facility] Comment on above: Result Comment: Non- GFR Calc Performed By: #### L 500.2500 #### [facility] [address] [place], [address] Glucose [Mass/Vol] 161 mg/dL High 74-106 [facility] Comment on above: Result Comment: Fast ing Glucose result greater than or equal to 126 mg/dL suggests DIABETES MELLITUS per A.D.A. criteria. Performed By: #### L 500.2500 #### [facility] [address] [place], [address] Potassium [Moles/Vol] 4.8 mmol/L Normal 3.5-5.1 [facility] Comment on above: Performed By: #### L 500.2500 #### [facility] [address] [place], [address] Sodium [Moles/Vol] 140 mmol/L Normal 136-145 [facility] Comment on above: Performed By: #### L 500.2500 #### [facility] [address] [place], [address] Urea nitrogen [Mass/Vol] 12 mg/dL Normal 7-18 [facility] Comment on above: Performed By: #### L 500.2500 #### [facility] [address] [place], [place], [address] Blood urea nitrogen (BUN)/cr eatinine ratioOrdered By: Shereen Shoemaker on 07-04-2024 Urea nitrogen/Creatinine [Mass ratio] 15.4 mg/mg 10-20 [facility] Carbon dioxide measurementOr dered By: Shereen Shoemaker on 07-04-2024 CO2 [Moles/Vol] 28.0 mmol/L 21.0-32.0 [facility] Chloride measurementOrdered By: Shereen Shoemaker on 07-04-2024 Chloride [Moles/Vol] 106 mmol/L 98-107 [facility] Glomerular filtration rate ( GFR) estimationOrdered By: Shereen Shoemaker on 07-04-2024 GFR/1.73 sq M.predicted among non-blacks MDRD (S/P/Bld) [Vol rate/Area] 78 mL/min/{1.73_m2} >60 [facility] Comment on above: Non- GFR Calc Glucose measurementOrdered B y: Shereen Shoemaker on 07-04-2024 Glucose [Mass/Vol] 161 mg/dL High 74-106 [facility] Comment on above: Fasting Glucose resu lt greater than or equal to 126 mg/dL suggests DIABETES MELLITUS per A.D.A. criteria. Internal Medicine Office Vis nevaeh 07-04-2024 Internal Medicine Office Visit [facility] [address] [place] [address] [place] [address] OFFICE VISIT Date of Service: 07/04/24 MR#: [id number] Acct: [id number] Name: CHIOMA LOCO Rep #: [id number] : 1955 Provider: Dr. Shereen rodriguez MD Age/Sex: 69/F [place] [facility] [place] Status: Signed Intake Vital Signs 04/04/24 08:35 04/04/24 14:35 07/04/24 08:18 Height 5 ft 2 in 5 ft 2 in 5 ft 2 in Weight: 223 lb 2 oz BMI 40.8 BP 124/68 H Blood Pressure Location Rt brachial Position Sitting Respiration 16 Pulse 77 Pulse Source Monitor Temp 96 F L Temp Source Temporal Pulse Oximetry (%) 98 Oxygen Delivery Method room air Intake Visit Reasons: 3 M FU Chief Complaint: follow up [employer] Required: No Accompanied by: Self Is patient in pain?: No Allergies cephalexin (From Keflex) Allergy (Intermediate, Verified 07/04/24 08:11) Rash niacin Allergy (Intermediate, Verified 07/04/24 08:11) Hives penicillin V (From Pen-Vee K) Allergy (Intermediate, Verified 07/04/24 08:11) Hives bee venom protein (honey bee) Allergy (Verified 07/04/24 08:11) Swelling Medications ???Medication ???Instructions ???Recorded ???Confirmed ???Type aspirin 81 mg tablet,delayed 81 mg PO DAILY 07/10/17 07/04/24 H istory release (Adult Low Dose Aspirin) calcium 315 mg (as 1 tab PO BID 07/10/17 07/04/24 His tory citrate)-vitamin D3 6.25 mcg (250 unit) tablet (Citracal + Vitamin D Maximum) cholecalciferol (vitamin D3) 125 125 mcg PO DAILY 08/26/21 07/04/24 History mcg (5,000 unit) tablet (Vitamin D3) metformin 1,000 mg tablet 1,000 mg PO BID #180 tabs 10/06/23 07/04/24 Rx simvastatin 40 mg tablet 40 mg PO QPM #90 tabs 10/06/2308/23 Rx lisinopril 30 mg tablet 30 mg PO DAILY #90 tabs 11/19/23 0 07/04/24 Rx anastrozole 1 mg tablet 1 mg PO DAILY #90 tabs 11/23/23 Rx glimepiride 2 mg tablet 2 mg PO QAM #90 tabs 04/25/2408/23 Rx pioglitazone 30 mg tablet 30 mg PO DAILY #90 tabs 05/23/24 0 07/04/24 Rx Have you fallen in the past year?: No PFSH Medical History Anti-cyclic citrullinated peptide antibody positive Pain, joint, hand, right Bilateral lower extremity edema Left knee pain Post-menopausal Wears glasses Cancer High cholesterol History of diverticulitis Shortness of breath on exertion Burning with urination Urinary frequency Health care maintenance Abnormal bruising Hemorrhoids Osteopenia due to cancer therapy Breast cancer HTN (hypertension) Hyperlipidemia Diabetes Surgical History Status post right breast lumpectomy Family History Mother CAD (coronary artery disease) Heart disease Asthma Father CAD (coronary artery disease) Thrombocytopenia Melanoma Myocardial infarction, Onset Age: 83 Brother Suicide Grandfather Colon cancer Sister Asthma Social History number of children: 5 current occupational status: unemployed history of recent travel: No sexually active: No Smoking Status: Never smoker second hand exposure: No alcohol intake: never substance use type: does not use caffeine: No eating out: 1-3 times/week what type of physical activity do you participate in: none and walking frequency: 5-6 times per week seatbelt use: always do you feel safe at home: Yes Female Reproductive History Menstrual Ab spontaneous: 3 HPI HPI Chief Complaint: follow up Details: CHIOMA LOCO, is a 69 F who presents to the office today for follow-up of her chronic medical conditions. No acute concerns at this time. A1c is at 6.8 up from 6.4. Due to the weather, has been less active but reports compliance with her medication. No concerns for hypoglycemia. Follows up with podiatry and ophthalmology. History of hypertension, blood pressure today is at 124/68 mmHg. No chest pain, palpitation or shortness of breath. Currently on lisinopril which she reports compliance with. Other chronic medical conditions are stable. ROS Const Constitutional: No body ache, excessive sweating, fatigue, fever(s), frequent falls, headache(s), snoring, weakness, weight change, sleep problems or change in appetite Eyes Eyes: No blurry vision, change in vision, vision loss, floaters, visual disturbances, eye pain or Light sensitivity ENT ENT: No abnormal hearing, ear or mastoid pain, tinnitus, balance problems, nosebleed/epistaxis , nasal congestion, headache(s), neck pain or sore throat Resp Respiratory: No cough, excessive phlegm production, pain on inspiration, shortness of breath, snoring or wheezing Cardio Cardiology: No chest pain at res (more content not included)... Normal [facility] - Hematology and Cell countsOrdered By: Shereen Shoemaker on 07-04-2024 HbA1c (Bld) [Mass fraction] 6.8 % High 4.2-6.3 [facility] Potassium measurementOrdered By: Shereen Shoemaker on 07-04-2024 Potassium [Moles/Vol] 4.8 mmol/L 3.5-5.1 [facility] Serum anion gap measurementO rdered By: Shereen Shoemakre on 07-04-2024 Anion gap [Moles/Vol] 6 mmol/L 5-15 [facility] Serum or plasma calcium oracio urement (mass/volume)Ordered By: Shereen Shoemaker on 07-04-2024 Calcium [Mass/Vol] 9.3 mg/dL 8.5-10.1 [facility] Serum or plasma creatinine m easurement (mass/volume)Ordered By: Shereen Shoemaker on 07-04-2024 Creatinine [Mass/Vol] 0.78 mg/dL 0.55-1.02 [facility] Comment on above: The validity of the calculated GFR & GFRAA in patients over 70 years has not been determined. Clinical correlation is essential. Serum or plasma urea nitroge n measurement (mass/volume)Ordered By: Shereen Shoemaker on 07-04-2024 Urea nitrogen [Mass/Vol] 12 mg/dL 7-18 [facility] Sodium levelOrdered By: Renato Shoemaker on 07-04-2024 Sodium [Moles/Vol] 140 mmol/L 136-145 [facility] Serum DNA double strand anti body assay (units/volume)Ordered By: Shereen Shoemaker on 04-04-2024 DNA double strand Ab Qn (S) Not Reportable [facility] Serum Scl-70 antibody assay (units/volume)Ordered By: Shereen Shoemaker on 04-04-2024 SCL-70 extractable nuclear Ab Qn (S) Not Reportable [facility] Serum or plasma cyclic citru llinated peptide IgG antibody assay (units/volume)Ordered By: Shereen Shoemaker on 04-04-2024 Cyclic citrullinated peptide IgG Qn 22 units High 0-19 [facility] Comment on above: Negative <20 Weak po sitive 20 - 39 Moderate positive 40 - 59 Strong positive >59Performed at: [facility] [address] [id number] Director: Jerel Gonsalves PhD, Phone: [phone] Erythrocyte sedimentation ra teOrdered By: Jaylyn Pate on 10-05-2023 ESR (Bld) [Velocity] 7 mm/h 0-30 [facility] - Hematology and Cell countson 12-03-2022 HbA1c (Bld) [Mass fraction] 6.7 % 4.2-6.3 [facility] Basophil percentageOrdered B y: Dr. Shoemaker on 08-01-2022 Chloride [Moles/Vol] 103 mmol/L 98-107 [facility] Glucose [Mass/Vol] 174 mg/dL 74-106 [facility] Comment on above: Fasting Glucose resu lt greater than or equal to 126 mg/dL suggests DIABETES MELLITUS per A.D.A. criteria. Potassium [Moles/Vol] 5.0 mmol/L 3.5-5.1 [facility] Sodium [Moles/Vol] 138 mmol/L 136-145 [facility] Laboratory - Chemistry and C hemistry - challengeOrdered By: Dr. Shoemaker on 08-01-2022 CO2 [Moles/Vol] 28.0 mmol/L 21.0-32.0 [facility] Urea nitrogen/Creatinine [Mass ratio] 16.0 mg/mg 10-20 [facility] Laboratory - Hematology and Cell countson 08-01-2022 HbA1c (Bld) [Mass fraction] 6.1 % 4.2-6.3 [facility] No Panel InformationOrdered By: Dr. Shoemaker on 08-01-2022 Estimated GFR (MDRD) Amer 90 mL/min >60 [facility] Comment on above: GFR Calc Estimated GFR (MDRD) Non-Af Amer 75 mL/min >60 [facility] Comment on above: Non- GFR Calc Serum or plasma calcium oracio urement (mass/volume)Ordered By: Dr. Shoemaker on 08-01-2022 Calcium [Mass/Vol] 9.5 mg/dL 8.5-10.1 [facility] Serum or plasma creatinine m easurement (mass/volume)Ordered By: Dr. Shoemaker on 08-01-2022 Creatinine [Mass/Vol] 0.81 mg/dL 0.55-1.02 [facility] Comment on above: The validity of the calculated GFR & GFRAA in patients over 70 years has not been determined. Clinical correlation is essential. Serum or plasma urea nitroge n measurement (mass/volume)Ordered By: Dr. Shoemaker on 08-01-2022 Urea nitrogen [Mass/Vol] 13 mg/dL 7-18 [facility] Thin prep Papanicolaou smear with manual screeningOrdered By: Dr. Shoemaker on 08-01-2022 Thin prep Papanicolaou smear with manual screening 7 5-15 [facility] Absolute lymphocyte counton 02-24-2022 Lymphocytes Auto (Unsp spec) [#/Vol] 1.22 10*3/uL 0.83-4.51 [facility] Work Phone: Basophil percentageon 2021 Basophils/100 WBC (Bld) 0.6 % 0-1 [facility] Work Phone: Bilirubin [Mass/Vol] 0.60 mg/dL 0.20-1.00 [facility] Work Phone: Comment on above: For patients on eltr ombopag therapy, use of Dimension [place] TBIL is not recommended. Chloride [Moles/Vol] 108 mmol/L 98-107 [facility] Work Phone: Cholesterol [Mass/Vol] 135 mg/dL <200 [facility] Work Phone: Comment on above: <200 mg/dL Desirable 200-240 mg/dL Borderline >240 mg/dL High Risk Eosinophils/100 WBC (Bld) 2.4 % 0-5 [facility] Work Phone: Glucose [Mass/Vol] 155 mg/dL 74-106 [facility] Work Phone: Comment on above: Fasting Glucose resu lt greater than or equal to 126 mg/dL suggests DIABETES MELLITUS per A.D.A. criteria. Neutrophils (Bld) [#/Vol] 3.4 10*3/uL 2.0-7.7 [facility] Work Phone: Neutrophils/100 WBC (Bld) 67.8 % 47-70 [facility] Work Phone: Potassium [Moles/Vol] 4.9 mmol/L 3.5-5.1 [facility] Work Phone: Protein [Mass/Vol] 7.3 g/dL 6.4-8.2 [facility] Work Phone: Sodium [Moles/Vol] 143 mmol/L 136-145 [facility] Work Phone: Triglyceride [Mass/Vol] 82 mg/dL <199 [facility] Work Phone: Comment on above: The drugs N-Acetylcy steine and Metamizole may falsely depress this assay.Serum Triglycerides Reference Interval Normal <150 mg/dL Borderline high 150 - 199 mg/dL High 200 - 499 mg/dL Very High > or = 500 mg/dL WBC (Bld) [#/Vol] 5.0 10*3/uL 4.4-11.0 [facility] Work Phone: Blood erythrocytes count (nu mber/volume)on 02-24-2022 RBC (Bld) [#/Vol] 4.42 10*6/uL 4.2-5.4 [facility] Work Phone: Blood hemoglobin measurement (mass/volume)on 02-24-2022 Hemoglobin (Bld) [Mass/Vol] 13.7 g/dL 12.0-15.0 [facility] Work Phone: Blood lymphocytes/100 leukoc yteson 02-24-2022 Lymphocytes/100 WBC (Bld) 24.6 % 19-41 [facility] Work Phone: Blood monocytes/100 leukocyt eson 02-24-2022 Monocytes/100 WBC (Bld) 4.4 % 0-10 [facility] Work Phone: Blood platelet mean volumeon 02-24-2022 Platelet mean volume (Bld) [Entitic vol] 9.0 fL 6.2-12.0 [facility] Work Phone: Determination of erythrocyte mean corpuscular volume (MCV)on 02-24-2022 MCV (RBC) [Entitic vol] 96.2 fL 81-99 [facility] Work Phone: Hematocrit Auto (Bld) [Volum e fraction]on 02-24-2022 Hematocrit (Bld) [Volume fraction] 42.5 % 37-47 [facility] Work Phone: Laboratory - Chemistry and C hemistry - challengeon 02-24-2022 ALP [Catalytic activity/Vol] 61 U/L 45-117 [facility] Work Phone: ALT [Catalytic activity/Vol] 21 U/L 13-56 [facility] Work Phone: CO2 [Moles/Vol] 29.0 mmol/L 21.0-32.0 [facility] Work Phone: Globulin (S) [Mass/Vol] 3.7 g/dL 2.2-4.2 [facility] Work Phone: Urea nitrogen/Creatinine [Mass ratio] 21.6 mg/mg 10-20 [facility] Work Phone: Laboratory - Hematology and Cell countson 02-24-2022 Erythrocyte distribution width (RBC) [Entitic vol] 48.3 fL 35.1-43.9 [facility] Work Phone: Erythrocyte distribution width (RBC) [Ratio] 13.7 % 11.6-14.6 [facility] Work Phone: Immature granulocytes/100 WBC (Bld) 0.200 % 0.0-0.9 [facility] Work Phone: Comment on above: IG% - Immature Granu locytes (promyelocytes, myelocytes and metamyelocytes) > 1% indicates that a LEFT SHIFT is Present. MCH (RBC) [Entitic mass] 31.0 pg 27.0-32.0 [facility] Work Phone: Nucleated RBC/100 WBC (Bld) [Ratio] 0 % 0-5 [facility] Work Phone: HbA1c (Bld) [Mass fraction] 6.1 % 4.2-6.3 [facility] Work Phone: MCHC Auto (RBC) [Mass/Vol]on 02-24-2022 MCHC (RBC) [Mass/Vol] 32.2 g/dL 32-36 [facility] Work Phone: No Panel Informationon 02-24 Estimated GFR (MDRD) Amer 83 mL/min >60 [facility] Work Phone: Comment on above: GFR Calc Estimated GFR (MDRD) Non-Af Amer 68 mL/min >60 [facility] Work Phone: Comment on above: Non- GFR Calc Urine Microalbumin/Creatinine Ratio 34.8 mg/g CRE <30 [facility] Work Phone: Platelets bldon 02-24-2022 Platelets (Bld) [#/Vol] 252 10*3/uL 150-450 [facility] Work Phone: Serum or plasma albumin oracio urement (mass/volume)on 02-24-2022 Albumin [Mass/Vol] 3.6 g/dL 3.2-5.0 [facility] Work Phone: Serum or plasma albumin/glob ulin mass ratioon 02-24-2022 Albumin/Globulin [Mass ratio] 1.0 {ratio} 0.9-2.4 [facility] Work Phone: Serum or plasma calcium oracio urement (mass/volume)on 02-24-2022 Calcium [Mass/Vol] 9.3 mg/dL 8.5-10.1 [facility] Work Phone: Serum or plasma cholesterol in HDL measurement (mass/volume)on 02-24-2022 Cholesterol in HDL [Mass/Vol] 67 mg/dL >40 [facility] Work Phone: Comment on above: The drugs N-Acetylcy steine and Metamizole may falsely depress this assay. Reference Range HDL <40 mg/dL Low HDL Cholesterol HDL >or= 60 mg/dL High HDL Cholesterol Serum or plasma cholesterol in VLDL measurement (mass/volume)on 02-24-2022 Cholesterol in VLDL [Mass/Vol] 16 mg/dL 5-40 [facility] Work Phone: Serum or plasma creatinine m easurement (mass/volume)on 02-24-2022 Creatinine [Mass/Vol] 0.88 mg/dL 0.55-1.02 [facility] Work Phone: Comment on above: The validity of the calculated GFR & GFRAA in patients over 70 years has not been determined. Clinical correlation is essential. Serum or plasma low density lipoprotein (LDL) cholesterol measurement (mass/volume)on 02-24-2022 Cholesterol in LDL [Mass/Vol] 52 mg/dL 0-130 [facility] Work Phone: Serum or plasma urea nitroge n measurement (mass/volume)on 02-24-2022 Urea nitrogen [Mass/Vol] 19 mg/dL 7-18 [facility] Work Phone: Thin prep Papanicolaou smear with manual screeningon 02-24-2022 Thin prep Papanicolaou smear with manual screening 12 U/L 15-37 [facility] Work Phone: Thin prep Papanicolaou smear with manual screening 6 5-15 [facility] Work Phone: Thin prep Papanicolaou smear with manual screening 39.7 mg/L NO RANGE EST. [facility] Work Phone: Urine creatinine measurement (mass/volume)on 02-24-2022 Creatinine (U) [Mass/Vol] 114.00 mg/dL NO RANGE EST. [facility] Work Phone: Whole blood hemoglobin A1c/t otal hemoglobin ratio (mass fraction)on 02-24-2022 HbA1c (Bld) [Mass fraction] 6.4 % 3.8-5.6 [facility] Work Phone: Comment on above: Normal < 5.7 % Predi abetic 5.7 - 6.4 % Diabetic >or= 6.5 % Please note range changes. Laboratory - Hematology and Cell countson 11-18-2021 HbA1c (Bld) [Mass fraction] 6.3 % 4.2-6.3 [facility] Work Phone: Basophil percentageon 2021 Bilirubin [Mass/Vol] 0.70 mg/dL 0.20-1.00 [facility] Comment on above: For patients on eltr ombopag therapy, use of [place] TBIL is not recommended. Chloride [Moles/Vol] 107 mmol/L 98-107 [facility] Glucose [Mass/Vol] 153 mg/dL 74-106 [facility] Comment on above: Fasting Glucose resu lt greater than or equal to 126 mg/dL suggests DIABETES MELLITUS per A.D.A. criteria. Potassium [Moles/Vol] 4.0 mmol/L 3.5-5.1 [facility] Protein [Mass/Vol] 7.2 g/dL 6.4-8.2 [facility] Sodium [Moles/Vol] 140 mmol/L 136-145 [facility] Laboratory - Chemistry and C hemistry - challengeon 09-30-2021 ALP [Catalytic activity/Vol] 64 U/L 45-117 [facility] ALT [Catalytic activity/Vol] 24 U/L 13-56 [facility] CO2 [Moles/Vol] 27.0 mmol/L 21.0-32.0 [facility] Globulin (S) [Mass/Vol] 3.6 g/dL 2.2-4.2 [facility] Urea nitrogen/Creatinine [Mass ratio] 18.4 mg/mg 10-20 [facility] No Panel Informationon 09-30 Estimated Creatinine Clearance Calc 50.93 ml/min [facility] Estimated GFR (MDRD) Amer 90 mL/min >60 [facility] Comment on above: GFR Calc Estimated GFR (MDRD) Non-Af Amer 74 mL/min >60 [facility] Comment on above: Non- GFR Calc Serum or plasma albumin oracio urement (mass/volume)on 09-30-2021 Albumin [Mass/Vol] 3.6 g/dL 3.2-5.0 [facility] Serum or plasma albumin/glob ulin mass ratioon 09-30-2021 Albumin/Globulin [Mass ratio] 1.0 {ratio} 0.9-2.4 [facility] Serum or plasma calcium oracio urement (mass/volume)on 09-30-2021 Calcium [Mass/Vol] 9.5 mg/dL 8.5-10.1 [facility] Serum or plasma creatinine m easurement (mass/volume)on 09-30-2021 Creatinine [Mass/Vol] 0.82 mg/dL 0.55-1.02 [facility] Comment on above: The validity of the calculated GFR & GFRAA in patients over 70 years has not been determined. Clinical correlation is essential. Serum or plasma urea nitroge n measurement (mass/volume)on 09-30-2021 Urea nitrogen [Mass/Vol] 15 mg/dL 7-18 [facility] Thin prep Papanicolaou smear with manual screeningon 09-30-2021 Thin prep Papanicolaou smear with manual screening 15 U/L 15-37 [facility] Thin prep Papanicolaou smear with manual screening 6 5-15 [facility] Glucose Glucometer (BldC) [M ass/Vol]on 08-28-2021 Glucose [Mass/Vol] 193 mg/dL 74-106 [facility] Work Phone: Comment on above: MANAGEMENT OF PATIEN T CARE PER NURSING PROTOCOL Basophil percentageon 2021 Chloride [Moles/Vol] 108 mmol/L 98-107 [facility] Work Phone: Glucose [Mass/Vol] 146 mg/dL 74-106 [facility] Work Phone: Comment on above: Fasting Glucose resu lt greater than or equal to 126 mg/dL suggests DIABETES MELLITUS per A.D.A. criteria. Potassium [Moles/Vol] 4.8 mmol/L 3.5-5.1 [facility] Work Phone: Sodium [Moles/Vol] 139 mmol/L 136-145 [facility] Work Phone: Laboratory - Chemistry and C hemistry - challengeon 08-13-2021 CO2 [Moles/Vol] 27.0 mmol/L 21.0-32.0 [facility] Work Phone: Urea nitrogen/Creatinine [Mass ratio] 18.8 mg/mg 10-20 [facility] Work Phone: No Panel Informationon 08-13 Estimated GFR (MDRD) Amer 92 mL/min >60 [facility] Work Phone: Comment on above: GFR Calc Estimated GFR (MDRD) Non-Af Amer 76 mL/min >60 [facility] Work Phone: Comment on above: Non- GFR Calc Serum or plasma calcium oracio urement (mass/volume)on 08-13-2021 Calcium [Mass/Vol] 9.5 mg/dL 8.5-10.1 [facility] Work Phone: Serum or plasma creatinine m easurement (mass/volume)on 08-13-2021 Creatinine [Mass/Vol] 0.80 mg/dL 0.55-1.02 [facility] Work Phone: Comment on above: The validity of the calculated GFR & GFRAA in patients over 70 years has not been determined. Clinical correlation is essential. Serum or plasma urea nitroge n measurement (mass/volume)on 08-13-2021 Urea nitrogen [Mass/Vol] 15 mg/dL 7-18 [facility] Work Phone: Thin prep Papanicolaou smear with manual screeningon 08-13-2021 Thin prep Papanicolaou smear with manual screening 4 - [facility] Work Phone: Whole blood hemoglobin A1c/t otal hemoglobin ratio (mass fraction)on 08-13-2021 HbA1c (Bld) [Mass fraction] 6.3 % 3.8-5.6 [facility] Work Phone: Comment on above: Normal < 5.7 % Predi abetic 5.7 - 6.4 % Diabetic >or= 6.5 % Please note range changes. No Panel Informationon 06-17 Urine Microalbumin/Creatinine Ratio 14.3 mg/g CRE <30 [facility] Work Phone: Thin prep Papanicolaou smear with manual screeningon 06-17-2021 Thin prep Papanicolaou smear with manual screening 15.0 mg/L NO RANGE EST. [facility] Work Phone: Urine creatinine measurement (mass/volume)on 06-17-2021 Creatinine (U) [Mass/Vol] 105.00 mg/dL NO RANGE EST. [facility] Work Phone: Laboratory - Hematology and Cell countson 05-14-2021 HbA1c (Bld) [Mass fraction] 6.4 % [facility] Work Phone: Absolute lymphocyte counton 03-27-2021 Lymphocytes Auto (Unsp spec) [#/Vol] 1.38 10*3/uL 0.83-4.51 [facility] Basophil percentageon 2020 Eosinophils/100 WBC (Bld) 1.9 % 0-5 [facility] Neutrophils (Bld) [#/Vol] 4.3 10*3/uL 2.0-7.7 [facility] WBC (Bld) [#/Vol] 6.2 10*3/uL 4.4-11.0 [facility] Blood erythrocytes count (nu mber/volume)on 03-27-2021 RBC (Bld) [#/Vol] 4.71 10*6/uL 4.2-5.4 [facility] Blood hemoglobin measurement (mass/volume)on 03-27-2021 Hemoglobin (Bld) [Mass/Vol] 14.0 g/dL 12.0-15.0 [facility] Blood lymphocytes/100 leukoc yteson 03-27-2021 Lymphocytes/100 WBC (Bld) 22.3 % 19-41 [facility] Blood monocytes/100 leukocyt eson 03-27-2021 Monocytes/100 WBC (Bld) 4.9 % 0-10 [facility] Blood platelet mean volumeon 03-27-2021 Platelet mean volume (Bld) [Entitic vol] 8.5 fL 6.2-12.0 [facility] Determination of erythrocyte mean corpuscular volume (MCV)on 03-27-2021 MCV (RBC) [Entitic vol] 89.6 fL 81-99 [facility] Hematocrit Auto (Bld) [Volum e fraction]on 03-27-2021 Hematocrit (Bld) [Volume fraction] 42.2 % 37-47 [facility] Laboratory - Hematology and Cell countson 03-27-2021 Basophils/100 WBC (Unsp spec) 0.6 % 0-1 [facility] Erythrocyte distribution width (RBC) [Entitic vol] 43.4 fL 35.1-43.9 [facility] Erythrocyte distribution width (RBC) [Ratio] 13.1 % 11.6-14.6 [facility] Immature granulocytes/100 WBC (Bld) 0.200 % 0.0-0.9 [facility] Comment on above: IG% - Immature Granu locytes (promyelocytes, myelocytes and metamyelocytes) > 1% indicates that a LEFT SHIFT is Present. MCH (RBC) [Entitic mass] 29.7 pg 27.0-32.0 [facility] Neutrophils/100 WBC (Bld) 70.1 % 47-70 [facility] Nucleated RBC/100 WBC (Bld) [Ratio] 0 % 0-5 [facility] MCHC Auto (RBC) [Mass/Vol]on 03-27-2021 MCHC (RBC) [Mass/Vol] 33.2 g/dL 32-36 [facility] Platelets bldon 03-27-2021 Platelets (Bld) [#/Vol] 262 10*3/uL 150-450 [facility] Vital Signs Date Time Vital Sign Value Performing Clinician Facility 01-16-2025 08:50-0400 Body height 157.[address] Shereen Shoemaker MD Work Phone: [facility] 01-16-2025 08:50-0400 Body mass index (BMI) [Ratio] 40.9 kg/m2 Dr. Shereen Shoemaker MD Work Phone: [facility] 01-16-2025 08:50-0400 Body temperature 96.6 [degF] Dr. Shereen Shoemaker MD Work Phone: [facility] 01-16-2025 08:50-0400 Body weight 101.[address] Shereen Shoemaker MD Work Phone: [facility] 01-16-2025 08:50-0400 Diastolic blood pressure 78 mm[Hg] Dr. Shereen Shoemaker MD Work Phone: [facility] 01-16-2025 08:50-0400 Heart rate 70 /min Dr. Shereen Shoemaker MD Work Phone: [facility] 01-16-2025 08:50-0400 Respiratory rate 16 /min Dr. Shereen Shoemaker MD Work Phone: [facility] 01-16-2025 08:50-0400 SaO2% (BldA) [Mass fraction] 98 % Dr. Shereen Shoemaker MD Work Phone: [facility] 01-16-2025 08:50-0400 Systolic blood pressure 136 mm[Hg] Dr. Shereen Shoemaker MD Work Phone: [facility] 01-02-2025 09:51-0400 Body height 157.48 cm Gladys Erwin MD Work Phone: [facility] 01-02-2025 09:51-0400 Body height 157 cm Gladys Erwin MD Work Phone: [facility] 01-02-2025 09:51-0400 Body mass index (BMI) [Ratio] 41.3 kg/m2 Gladys Erwin MD Work Phone: [facility] 01-02-2025 09:51-0400 Body weight 102.06 kg Gladys Erwin MD Work Phone: [facility] 01-02-2025 09:51-0400 Body weight 102 kg Gladys Erwin MD Work Phone: [facility] 01-02-2025 09:51-0400 Diastolic blood pressure 72 mm[Hg] Gladys Erwin MD Work Phone: [facility] 01-02-2025 09:51-0400 Heart rate 76 /min Gladys Erwin MD Work Phone: [facility] 01-02-2025 09:51-0400 HGHTCHNVIS Gladys Erwin MD Work Phone: [facility] 01-02-2025 09:51-0400 Systolic blood pressure 129 mm[Hg] Gladys Erwin MD Work Phone: [facility] 01-02-2025 09:51-0400 VITALSDONE Gladys Erwin MD Work Phone: [facility] 10-10-2024 08:58-0400 Body height 157.[address] Shereen Shoemaker MD Work Phone: [facility] 10-10-2024 08:58-0400 Body mass index (BMI) [Ratio] 41.1 kg/m2 Dr. Shereen Shoemaker MD Work Phone: [facility] 10-10-2024 08:58-0400 Body temperature 97.5 [degF] Dr. Shereen Shoemaker MD Work Phone: [facility] 10-10-2024 08:58-0400 Body weight 102.[address] Shereen Shoemaker MD Work Phone: [facility] 10-10-2024 08:58-0400 Diastolic blood pressure 76 mm[Hg] Dr. Shereen Shoemaker MD Work Phone: [facility] 10-10-2024 08:58-0400 Heart rate 74 /min Dr. Shereen Shoemaker MD Work Phone: [facility] 10-10-2024 08:58-0400 Respiratory rate 16 /min Dr. Shereen Shoemaker MD Work Phone: [facility] 10-10-2024 08:58-0400 SaO2% (BldA) [Mass fraction] 98 % Dr. Shereen Shoemaker MD Work Phone: [facility] 10-10-2024 08:58-0400 Systolic blood pressure 122 mm[Hg] Dr. Shereen Shoemaker MD Work Phone: [facility] 10-03-2024 14:33-0400 Body mass index (BMI) [Ratio] 40.9 kg/m2 Dr. Shereen Shoemaker MD Work Phone: [facility] 10-03-2024 14:33-0400 Body weight 101.[address] Shereen Shoemaker MD Work Phone: [facility] 10-03-2024 13:22-0400 Body mass index (BMI) [Ratio] 40.9 kg/m2 Dr. Shereen Shoemaker MD Work Phone: [facility] 10-03-2024 13:22-0400 Body temperature 97.8 [degF] Dr. Shereen Shoemaker MD Work Phone: [facility] 10-03-2024 13:22-0400 Body weight 101.[address] Shereen Shoemaker MD Work Phone: [facility] 10-03-2024 13:22-0400 Diastolic blood pressure 71 mm[Hg] Dr. Shereen Shoemaker MD Work Phone: [facility] 10-03-2024 13:22-0400 Heart rate 80 /min Dr. Shereen Shoemaker MD Work Phone: [facility] 10-03-2024 13:22-0400 Respiratory rate 14 /min Dr. Shereen Shoemaker MD Work Phone: [facility] 10-03-2024 13:22-0400 SaO2% (BldA) [Mass fraction] 95 % Dr. Shereen Shoemaker MD Work Phone: [facility] 10-03-2024 13:22-0400 Systolic blood pressure 118 mm[Hg] Dr. Shereen Shoemaker MD Work Phone: [facility] 07-04-2024 08:18-0500 Body mass index (BMI) [Ratio] 40.8 kg/m2 Dr. Shereen Shoemaker MD Work Phone: [facility] 07-04-2024 08:18-0500 Body temperature 96 [degF] Dr. Shereen Shoemaker MD Work Phone: [facility] 07-04-2024 08:18-0500 Body weight 101.[address] Shereen Shoemaker MD Work Phone: [facility] 07-04-2024 08:18-0500 Diastolic blood pressure 68 mm[Hg] Dr. Shereen Shoemaker MD Work Phone: [facility] 07-04-2024 08:18-0500 Heart rate 77 /min Dr. Shereen Shoemaker MD Work Phone: [facility] 07-04-2024 08:18-0500 Respiratory rate 16 /min Dr. Shereen Shoemaker MD Work Phone: [facility] 07-04-2024 08:18-0500 SaO2% (BldA) [Mass fraction] 98 % Dr. Shereen Shoemaker MD Work Phone: [facility] 07-04-2024 08:18-0500 Systolic blood pressure 124 mm[Hg] Dr. Shereen Shoemaker MD Work Phone: [facility] 10-12-2023 14:08-0400 Body temperature 97 [degF] Dr. Shereen Shoemaker MD Work Phone: [facility] 10-12-2023 14:08-0400 Diastolic blood pressure 53 mm[Hg] Dr. Shereen Shoemaker MD Work Phone: [facility] 10-12-2023 14:08-0400 Heart rate 77 /min Dr. Shereen Shoemaker MD Work Phone: [facility] 10-12-2023 14:08-0400 Respiratory rate 16 /min Dr. Shereen Shoemaker MD Work Phone: [facility] 10-12-2023 14:08-0400 SaO2% (BldA) [Mass fraction] 98 % Dr. Shereen Shoemaker MD Work Phone: [facility] 10-12-2023 14:08-0400 Systolic blood pressure 145 mm[Hg] Dr. Shereen Shoemaker MD Work Phone: [facility] 12-03-2022 09:00-0400 Body height 157.[address] Shereen Shoemaker Work Phone: [facility] 12-03-2022 09:00-0400 Body mass index (BMI) [Ratio] 39.9 kg/m2 Dr. Shereen Shoemaker Work Phone: [facility] 12-03-2022 09:00-0400 Body temperature 97.8 [degF] Dr. Shereen Shoemaker Work Phone: [facility] 12-03-2022 09:00-0400 Body weight 99.[address] Shereen Shoemaker Work Phone: [facility] 12-03-2022 09:00-0400 Diastolic blood pressure 72 mm[Hg] Dr. Shereen Shoemaker Work Phone: [facility] 12-03-2022 09:00-0400 Heart rate 72 /min Dr. Shereen Shoemaker Work Phone: [facility] 12-03-2022 09:00-0400 Respiratory rate 18 /min Dr. Shereen Shoemaker Work Phone: [facility] 12-03-2022 09:00-0400 SaO2% (BldA) [Mass fraction] 97 % Dr. Shereen Shoemaker Work Phone: [facility] 12-03-2022 09:00-0400 Systolic blood pressure 128 mm[Hg] Dr. Shereen Shoemaker Work Phone: [facility] 10-06-2022 11:01-0400 Body mass index (BMI) [Ratio] 40.4 kg/m2 Dr. Shereen Shoemaker Work Phone: [facility] 10-06-2022 11:01-0400 Body weight 97.[address] Shereen Shoemaker Work Phone: [facility] 10-06-2022 09:35-0400 Body mass index (BMI) [Ratio] 40 kg/m2 Dr. Shereen Shoemaker Work Phone: [facility] 10-06-2022 09:35-0400 Body temperature 97.9 [degF] Dr. Shereen Shoemaker Work Phone: [facility] 10-06-2022 09:35-0400 Body weight 99.[address] Shereen Shoemaker Work Phone: [facility] 10-06-2022 09:35-0400 Diastolic blood pressure 71 mm[Hg] Dr. Shereen Shoemaker Work Phone: [facility] 10-06-2022 09:35-0400 Heart rate 71 /min Dr. Shereen Shoemaker Work Phone: [facility] 10-06-2022 09:35-0400 Respiratory rate 15 /min Dr. Shereen Shoemaker Work Phone: [facility] 10-06-2022 09:35-0400 SaO2% (BldA) [Mass fraction] 99 % Dr. Shereen Shoemaker Work Phone: [facility] 10-06-2022 09:35-0400 Systolic blood pressure 137 mm[Hg] Dr. Shereen Shoemaker Work Phone: [facility] 10-03-2022 10:36-0400 Body temperature 98 [degF] Dr. Shereen Shoemaker Work Phone: [facility] 10-03-2022 10:36-0400 Diastolic blood pressure 58 mm[Hg] Dr. Shereen Shoemaker Work Phone: [facility] 10-03-2022 10:36-0400 Heart rate 86 /min Dr. Shereen Shoemaker Work Phone: [facility] 10-03-2022 10:36-0400 Respiratory rate 16 /min Dr. Shereen Shoemaker Work Phone: [facility] 10-03-2022 10:36-0400 SaO2% (BldA) [Mass fraction] 97 % Dr. Shereen Shoemaker Work Phone: [facility] 10-03-2022 10:36-0400 Systolic blood pressure 150 mm[Hg] Dr. Shereen Shoemaker Work Phone: [facility] 08-27-2022 08:49-0400 Body height 157.[address] Shereen Shoemaker Work Phone: [facility] 06-24-2022 09:35-0500 Body mass index (BMI) [Ratio] 39.4 kg/m2 Dr. Shereen Shoemaker Work Phone: [facility] 06-24-2022 09:35-0500 Body temperature 97.4 [degF] Dr. Shereen Shoemaker Work Phone: [facility] 06-24-2022 09:35-0500 Body weight 97.[address] Shereen Shoemaker Work Phone: [facility] 06-24-2022 09:35-0500 Diastolic blood pressure 74 mm[Hg] Dr. Shereen Shoemaker Work Phone: [facility] 06-24-2022 09:35-0500 Heart rate 77 /min Dr. Shereen Shoemaker Work Phone: [facility] 06-24-2022 09:35-0500 Respiratory rate 18 /min Dr. Shereen Shoemaker Work Phone: [facility] 06-24-2022 09:35-0500 SaO2% (BldA) [Mass fraction] 97 % Dr. Shereen Shoemaker Work Phone: [facility] 06-24-2022 09:35-0500 Systolic blood pressure 128 mm[Hg] Dr. Shereen Shoemaker Work Phone: [facility] 02-24-2022 08:10-0400 Body height 157.[address] Shereen Shoemaker Work Phone: [facility] Work Phone: 02-24-2022 08:10-0400 Body mass index (BMI) [Ratio] 39.6 kg/m2 Dr. Shereen Shoemaker Work Phone: [facility] Work Phone: 02-24-2022 08:10-0400 Body temperature 97.1 [degF] Dr. Shereen Shoemaker Work Phone: [facility] Work Phone: 02-24-2022 08:10-0400 Body weight 98.[address] Shereen Shoemaker Work Phone: [facility] Work Phone: 02-24-2022 08:10-0400 Diastolic blood pressure 70 mm[Hg] Dr. Shereen Shoemaker Work Phone: [facility] Work Phone: 02-24-2022 08:10-0400 Heart rate 81 /min Dr. Shereen Shoemaker Work Phone: [facility] Work Phone: 02-24-2022 08:10-0400 Respiratory rate 16 /min Dr. Shereen Shoemaker Work Phone: [facility] Work Phone: 02-24-2022 08:10-0400 SaO2% (BldA) [Mass fraction] 96 % Dr. Shereen Shoemaker Work Phone: [facility] Work Phone: 02-24-2022 08:10-0400 Systolic blood pressure 110 mm[Hg] Dr. Shereen Shoemaker Work Phone: [facility] Work Phone: 11-18-2021 08:52-0400 Body height 157.[address] Shereen Shoemaker Work Phone: [facility] Work Phone: 11-18-2021 08:52-0400 Body mass index (BMI) [Ratio] 39 kg/m2 Dr. Shereen Shoemaker Work Phone: [facility] Work Phone: 11-18-2021 08:52-0400 Body temperature 98.2 [degF] Dr. Shereen Shoemaker Work Phone: [facility] Work Phone: 11-18-2021 08:52-0400 Body weight 96.[address] Shereen Sohemaker Work Phone: [facility] Work Phone: 11-18-2021 08:52-0400 Diastolic blood pressure 66 mm[Hg] Dr. Shereen Shoemaker Work Phone: [facility] Work Phone: 11-18-2021 08:52-0400 Heart rate 78 /min Dr. Shereen Shoemaker Work Phone: [facility] Work Phone: 11-18-2021 08:52-0400 Respiratory rate 16 /min Dr. Shereen Shoemaker Work Phone: [facility] Work Phone: 11-18-2021 08:52-0400 SaO2% (BldA) [Mass fraction] 98 % Dr. Shereen Shoemaker Work Phone: [facility] Work Phone: 11-18-2021 08:52-0400 Systolic blood pressure 112 mm[Hg] Dr. Shereen Shoemaker Work Phone: [facility] Work Phone: 09-30-2021 13:14-0400 Body mass index (BMI) [Ratio] 39.6 kg/m2 Dr. Shereen Shoemaker Work Phone: [facility] Work Phone: 09-30-2021 13:14-0400 Body temperature 97.8 [degF] Dr. Shereen Shoemaker Work Phone: [facility] Work Phone: 09-30-2021 13:14-0400 Body weight 98.[address] Shereen Shoemaker Work Phone: [facility] Work Phone: 09-30-2021 13:14-0400 Diastolic blood pressure 77 mm[Hg] Dr. Shereen Shoemaker Work Phone: [facility] Work Phone: 09-30-2021 13:14-0400 Heart rate 83 /min Dr. Shereen Shoemaker Work Phone: [facility] Work Phone: 09-30-2021 13:14-0400 Respiratory rate 15 /min Dr. Shereen Shoemaker Work Phone: [facility] Work Phone: 09-30-2021 13:14-0400 SaO2% (BldA) [Mass fraction] 97 % Dr. Shereen Shoemaker Work Phone: [facility] Work Phone: 09-30-2021 13:14-0400 Systolic blood pressure 126 mm[Hg] Dr. Shereen Shoemaker Work Phone: [facility] Work Phone: 08-28-2021 08:02-0400 Body temperature 97.4 [degF] Dr. Shereen Shoemaker Work Phone: [facility] Work Phone: 08-28-2021 08:02-0400 Diastolic blood pressure 58 mm[Hg] Dr. Shereen Shoemaker Work Phone: [facility] Work Phone: 08-28-2021 08:02-0400 Heart rate 68 /min Dr. Shereen Shoemaker Work Phone: [facility] Work Phone: 08-28-2021 08:02-0400 Respiratory rate 16 /min Dr. Shereen Shoemaker Work Phone: [facility] Work Phone: 08-28-2021 08:02-0400 SaO2% (BldA) [Mass fraction] 98 % Dr. Shereen Shoemaker Work Phone: [facility] Work Phone: 08-28-2021 08:02-0400 Systolic blood pressure 115 mm[Hg] Dr. Shereen Shoemaker Work Phone: [facility] Work Phone: 08-28-2021 06:49-0400 Body height 154.[address] Shereen Shoemaker Work Phone: [facility] Work Phone: 08-28-2021 06:49-0400 Body mass index (BMI) [Ratio] 39.9 kg/m2 Dr. Shereen Shoemaker Work Phone: [facility] Work Phone: 08-28-2021 06:49-0400 Body weight [address] Shereen Shoemaker Work Phone: [facility] Work Phone: 08-14-2021 09:39-0400 Body mass index (BMI) [Ratio] 39.9 kg/m2 Dr. Shereen Shoemaker Work Phone: [facility] Work Phone: 08-14-2021 09:39-0400 Body temperature 98.1 [degF] Dr. Shereen Shoemaker Work Phone: [facility] Work Phone: 08-14-2021 09:39-0400 Body weight 98.[address] Shereen Shoemaker Work Phone: [facility] Work Phone: 08-14-2021 09:39-0400 Diastolic blood pressure 74 mm[Hg] Dr. Shereen Shoemaker Work Phone: [facility] Work Phone: 08-14-2021 09:39-0400 Heart rate 84 /min Dr. Shereen Shoemaker Work Phone: [facility] Work Phone: 08-14-2021 09:39-0400 Respiratory rate 14 /min Dr. Shereen Shoemaker Work Phone: [facility] Work Phone: 08-14-2021 09:39-0400 SaO2% (BldA) [Mass fraction] 98 % Dr. Shereen Shoemaker Work Phone: [facility] Work Phone: 08-14-2021 09:39-0400 Systolic blood pressure 120 mm[Hg] Dr. Shereen Shoemaker Work Phone: [facility] Work Phone: 05-14-2021 07:07-0500 Body mass index (BMI) [Ratio] 39.9 kg/m2 Dr. Shereen Shoemaker Work Phone: [facility] Work Phone: 05-14-2021 07:07-0500 Body temperature 98 [degF] Dr. Shereen Shoemaker Work Phone: [facility] Work Phone: 05-14-2021 07:07-0500 Body weight 98.[address] Shereen Shoemaker Work Phone: [facility] Work Phone: 05-14-2021 07:07-0500 Diastolic blood pressure 78 mm[Hg] Dr. Shereen Shoemaker Work Phone: [facility] Work Phone: 05-14-2021 07:07-0500 Heart rate 79 /min Dr. Shereen Shoemaker Work Phone: [facility] Work Phone: 05-14-2021 07:07-0500 Respiratory rate 16 /min Dr. Shereen Shoemaker Work Phone: [facility] Work Phone: 05-14-2021 07:07-0500 SaO2% (BldA) [Mass fraction] 97 % Dr. Shereen Shoemaker Work Phone: [facility] Work Phone: 05-14-2021 07:07-0500 Systolic blood pressure 118 mm[Hg] Dr. Shereen Shoemaker Work Phone: [facility] Work Phone: 03-21-2020 12:03-0400 Body mass index (BMI) [Ratio] 40.4 kg/m2 Dr. Shereen Shoemaker Work Phone: [facility] Work Phone: 03-21-2020 12:03-0400 Body temperature 97.3 [degF] Dr. Shereen Shoemaker Work Phone: [facility] 03-21-2020 12:03-0400 Body weight 97.[address] Shereen Shoemaker Work Phone: [facility] Work Phone: 03-21-2020 12:03-0400 Diastolic blood pressure 76 mm[Hg] Dr. Shereen Shoemaker Work Phone: [facility] 03-21-2020 12:03-0400 Heart rate 71 /min Dr. Shereen Shoemaker Work Phone: [facility] 03-21-2020 12:03-0400 Respiratory rate 16 /min Dr. Shereen Shoemaker Work Phone: [facility] 03-21-2020 12:03-0400 SaO2% (BldA) [Mass fraction] 98 % Dr. Shereen Shoemaker Work Phone: [facility] 03-21-2020 12:03-0400 Systolic blood pressure 118 mm[Hg] Dr. Shereen Shoemaker Work Phone: [facility] Encounters Encounter Date Encounter Type Care Provider Facility Start: 04-10-2025 End: 04-10-2025 ambulatory Shereen Shoemaker [facility] Start: 04-03-2025 End: 04-03-2025 ambulatory [facility] Facility:[facility] Start: 01-16-2025 End: 01-16-[address] Shereen Shoemaker MD -[facility] Work Phone: Start: 01-16-2025 End: 01-16-[address] Shereen Shoemaker MD Work Phone: -[facility] Start: 01-05-2025 End: 01-05-[address] Shereen Shoemaker MD Work Phone: -[facility] Start: 01-05-2025 End: 01-05-[address] Frances Bolivar MD -Outpatient Breast [facility] Work Phone: Start: 01-05-2025 End: 01-05-2025 ambulatory Frances Bolivar Facility:[facility] Start: 01-02-2025 In-person encounter Gladys liu MD Work Phone: [facility] Work Phone: Start: 01-02-2025 Visit out of hours Gladys lambert MD Work Phone: [facility] Work Phone: Start: 10-10-2024 End: 10-10-[address] Shereen Shoemaker MD -[facility] Work Phone: Start: 10-10-2024 End: 10-10-[address] Shereen Shoemaker MD [facility] Start: 10-10-2024 End: 10-10-2024 ambulatory [facility] Facility:[facility] Start: 10-07-2024 End: 10-07-[address] Shereen Shoemaker MD Work Phone: [facility] Work Phone: Start: 10-07-2024 End: 10-07-[address] Shereen Shoemaker MD -Laboratory Work Phone: Start: 10-07-2024 End: 10-07-2024 ambulatory [facility] Facility:[facility] Start: 10-03-2024 End: 10-03-[address] Frances Bolivar MD -[facility] Work Phone: Start: 10-03-2024 End: 10-03-20[facility] Start: 10-03-[address] Preeti Bolivar MD -[facility] Start: 07-04-2024 Encounter for genera l adult medical examination without abnormal findings [facility] Start: 07-04-2024 End: 07-04-[address] Shereen Shoemaker MD -[facility] Work Phone: Start: 07-04-2024 End: 07-04-[address] Shereen Shoemaker MD [facility] Start: 07-04-2024 End: 07-04-2024 ambulatory [facility] Start: 07-04-2024 End: 02-03-2025 ambulatory [facility] Start: 12-30-2022 End: 12-30-[address] Shereen Shoemaker Work Phone: [facility] Work Phone: Start: 12-30-2022 End: 12-30-[address] Shereen Shoemaker Work Phone: [facility]-Outpatient Breast Imaging Work Phone: Start: 12-03-2022 End: 12-03-[address] Shereen Shoemaker Work Phone: [facility] Work Phone: Start: 10-06-[address] Sheri Shoemaker Work Phone: [facility] Start: 10-06-2022 End: 10-06-[address] Shereen Shoemaker Work Phone: [facility] Work Phone: Start: 10-03-2022 End: 10-03-[address] Shereen Shoemaker Work Phone: [facility] Work Phone: Start: 08-27-2022 End: 08-27-[address] Shereen Shoemaker Work Phone: [facility] Work Phone: Start: 08-27-2022 End: 08-27-[address] Shereen Shoemaker Work Phone: [facility]-Outpatient Bone Densitometry Start: 08-01-2022 End: 08-01-[address] Shereen Shoemaker Work Phone: [facility] Work Phone: Start: 08-01-2022 End: 08-01-[address] Shereen Shoemaker Work Phone: [facility] Start: 02-24-2022 End: 02-24-[address] Shereen Shoemaker Work Phone: [facility] Work Phone: Start: 02-24-2022 End: 02-24-[address] Shereen Shoemaker Work Phone: [facility]atory[facility] Start: 02-24-2022 End: 02-24-2022 Encounter for general adult medical examination without abnormal findings Dr. Shereen Shoemaker Work Phone: [facility] Start: 02-24-2022 End: 02-24-[address] Shereen Shoemaker Work Phone: [facility] Start: 12-16-2021 End: 12-16-[address] Shereen Shoemaker Work Phone: [facility]-Outpatient Breast Imaging Start: 11-18-2021 End: 11-18-[address] Shereen Shoemaker Work Phone: [facility] Start: 09-30-[address] Sheri Shoemaker Work Phone: [facility] Oncology Start: 09-30-2021 End: 09-30-[address] Shereen Shoemaker Work Phone: [facility] Start: 08-28-2021 Non-patient / Non-visit Dr. Shereen Shoemaker Work Phone: [facility] Start: 08-28-2021 End: 08-28-2021 Admission to same day surgery center Dr. Shereen Shoemaker Work Phone: [facility]-Endoscopy Start: 08-14-2021 End: 08-14-[address] Shereen Shoemaker Work Phone: [facility] Start: 08-13-2021 End: 08-13-[address] Shereen Shoemaker Work Phone: [facility] Start: 07-08-2021 End: 07-08-[address] Shereen Shoemaker Work Phone: [facility] Gastroenterology Start: 06-17-2021 End: 06-17-[address] Shereen Shoemaker Work Phone: [facility] Int Med Virtual Start: 06-17-2021 End: 06-17-[address] Shereen Shoemaker Work Phone: [facility]-Laboratory, Specimen Start: 05-14-2021 End: 05-14-2021 Encounter for general adult medical examination without abnormal findings Dr. Shereen Shoemaker Work Phone: [facility] Start: 05-14-2021 End: 05-14-[address] Shereen Shoemaker Work Phone: [facility] Start: 02-08-[address] Shereen Shoemaker Work Phone: [facility] Procedures Date Procedure Procedure Detail Performing Clinician Start: 01-05-2025 Screening mammography Jaun Shoemaker MD Work Phone: Start: 01-02-2025 Blood pressure withi n normal parameters - no follow-up required Gladys Erwin MD Work Phone: Start: 01-02-2025 BMI outside of macario l parameters - no follow-up plan/reason not given Gladys Erwin MD Work Phone: Start: 01-02-2025 Current tobacco non- user cad cap copd pv dm Gladys Erwin MD Work Phone: Start: 01-02-2025 Documentation of cur rent medications Gladys Erwin MD Work Phone: Start: 01-02-2025 Pain assessment docu mented as positive - follow-up documented Gladys Erwin MD Work Phone: Start: 01-02-2025 Injection - triamcin olone acetonide 10 mg Gladys Erwin MD Work Phone: Start: 01-02-2025 Injection 1 tendon sheath/ligament aponeurosis Gladys Erwin MD Work Phone: Start: 10-03-[address] Shereen Shoemaker MD Work Phone: Start: 07-04-2024 Measurement of renal function Dr. Shereen Shoemaker MD Work Phone: Comment on above: GFR Calc Start: 04-04-[address] Sushil Shoemaker MD Work Phone: Comment on above: Performed at: [address] [id number] Director: Jerel Gonsalves PhD, Phone: [phone] Start: 04-04-2024 Antibody to centrome re measurement Dr. Shereen Shoemaker MD Work Phone: Start: 04-04-2024 Antibody to extracta ble nuclear antigen measurement Dr. Shereen Shoemaker MD Work Phone: Start: 04-04-2024 Antibody to MARA-[address] Shereen Shoemaker MD Work Phone: Start: 04-04-2024 Antibody to lupus La protein measurement Dr. Shereen Shoemaker MD Work Phone: Start: 04-04-2024 Antibody to SS-A measurement Dr. Shereen Shoemaker MD Work Phone: Start: 04-04-[address] Shereen Shoemaker MD Work Phone: Start: 04-04-2024 CLINICAL INVESTIGATOR antibody measurement Dr. Shereen Shoemaker MD Work Phone: Start: 10-05-2023 Measurement of C-joel ctive protein using high sensitivity technique Dr. Shereen Shoemaker MD Work Phone: Comment on above: C-Reactive Protein ( CRP) provides useful information for thediagnosis, therapy and monitoring of inflammatory processesand associated diseases. For the evaluation of Relative Riskfor Cardiovascular Disease, a High Sensitivity CRP (HSCRP)should be ordered. Start: 10-05-2023 Measurement of renal function Dr. Shereen Shoemaker MD Work Phone: Comment on above: GFR Calc Start: 12-30-2022 Screening mammography Jaun Shoemaker Work Phone: Start: 08-27-2022 Dual energy X-ray absorptiometry Dr. Shereen Shoemaker Work Phone: Start: 12-16-2021 Screening mammography Jaun Shoemaker Work Phone: Start: 08-28-[address] Graciela Shoemaker Work Phone: Plan of Treatment Date Care Activity Detail Author Start: 07-04-2024 Patient referral [facility] Work Phone: Start: 10-06-2022 Patient referral [facility] Work Phone: Start: 08-28-2021 Colsc flx w/rmvl of tumor polyp lesion snare tq COLONOSCOPY W/LESION REMOVAL [facility] Work Phone: Start: 08-28-2021 Patient discharge [facility] Work Phone: Start: 08-14-2021 Patient referral [facility] Work Phone: CBC W Auto Different ial panel - Blood [facility] Work Phone: CBC W Auto Different ial panel - Blood [facility] Hemoglobin A1c/Hemoglobin.total in Blood [facility] Work Phone: Lipid 1996 panel - S [place] or Plasma [facility] Work Phone: Lipid 1996 panel - S [place] or Plasma [facility] MG Breast - bilatera l Screening [facility] Work Phone: MG Breast - bilatera l Screening [facility] MG Breast - bilatera l Screening [facility] Patient referral [facility] Work Phone: Urine microalbumin/creatinine ratio measurement [facility] Work Phone: Urine microalbumin/creatinine ratio measurement [facility] Immunizations Immunization Date Immunization Notes Care Provider Fa [facility] 05-14-2021 pneumococcal conjuga te vaccine, [address] Shereen Shoemaker Work Phone: [facility] 05-14-2021 pneumococcal vaccine , unspecified formulation Dr. Shereen Shoemaker Work Phone: [facility] Work Phone: 03-13-2020 influenza, injectabl e, quadrivalent, preservative free Dr. Shereen Shoemaker MD Work Phone: [facility] 03-13-2020 influenza, seasonal, injectable Dr. Shereen Shoemaker Work Phone: [facility] 03-13-2020 Fluad Quad (65yr up)(PF) 60 mcg (15 mcg x 4)/0.5mL IM syringe (flu vac Dr. Shereen Shoemaker Work Phone: [facility] Work Phone: 04-05-[address] Shereen Shoemaker Work Phone: [facility] 04-05-2019 Flucelvax Quad [id number] (PF) (flu vac qs 2018(4 yr up)CD(PF)) 60 mcg ([address] Shereen Shoemaker Work Phone: [facility] Work Phone: Payers Date Payer Category Payer Medicare [id number] 2017 Self-pay [id number] Medicare [id number] Unknown [id number] [id number] [id number] Unknown [id number] [id number] Unknown [id number] 2.16.8 [id number] Unknown [id number] 2.16.8 [id number] Unknown [id number] 2.16.8 [id number] Unknown [id number] 2.16.8 [id number] Unknown [id number] 2.16.8 [id number] Unknown [id number] 2.16.8 [id number] Unknown [id number] [id number] [id number] Unknown [id number] [id number] [id number] Social History Date Type Detail Facility Start: 08-26-2021 End: 12-03-2022 Tobacco smoking status NHIS Unknown if ever smoked [facility] Start: 1955 Sex Assigned At Female [facility] Start: 06-08-2023 Tobacco smoking stat us NHIS Never smoked tobacco (finding) [facility] Start: 01-02-2025 social history revie wed [facility] Work Phone: Goals Date Patient Goal Desired Activity /State Mental Status Date Assessment Result Facility 10-03-2024 Cognitive function Voice/Name [facility] Work Phone: 10-06-2022 Cognitive function Voice/Name [facility] Work Phone: 08-28-2021 Cognitive function Voice/Name [facility] Work Phone: 03-21-2020 Cognitive function Voice/Name [facility] Work Phone: 02-15-2019 Cognitive function Mood Descript ion Appropriate;Calm;Relaxed [facility] Work Phone: Evaluation note 10-03-2024 Note Date & Type Note Facility 10-03-2024 Evaluation note Diagnosis Onset Date Resolution Cancer of right female breast chronic October 03, 2024 12:45pm Osteopenia chronic October 03, 2024 12:45pm Cancer of right female breast chronic October 03, 2024 12:53pm Osteopenia chronic October 03, 2024 12:53pm Health care maintenance acute M ay 2024 8:48am Bilateral lower extremity edema chronic October 10, 2024 8:48am Hyperlipidemia chronic October 10, 2024 8:48am Hypertension chronic October 10 8:48am Type 2 diabetes mellitus chronic October 10, 2024 8:48am [facility] Work Phone: Evaluation note 07-04-2024 Note Date & Type Note Facility 07-04-2024 Evaluation note Diagnosis Onset Date Resolution Health care maintenance acute F ebruary 2024 8:12am Hyperlipidemia chronic July 042024 8:12am Hypertension chronic July 8:12am Type 2 diabetes mellitus chronic July 04, 2024 8:12am Cancer of right female breast chronic October 03, 2024 12:45pm Osteopenia chronic October 03, 2024 12:45pm Cancer of right female breast chronic October 03, 2024 12:53pm Osteopenia chronic October 03, 2024 12:53pm Health care maintenance acute M ay 2024 8:48am Bilateral lower extremity edema chronic October 10, 2024 8:48am Hyperlipidemia chronic October 10, 2024 8:48am Hypertension chronic October 10 8:48am Type 2 diabetes mellitus chronic October 10, 2024 8:48am [facility] Work Phone: Evaluation note Note Date & Type Note Facility Evaluation note Diagnosis Onset Date Health care maintenance acut e Hypertension chronic Type 2 diabetes mellitus [facility] Burning with urination acute Urinary frequency acute Type 2 diabetes mellitus [facility] Hypertension chronic Osteopenia chronic Type 2 diabetes mellitus [facility] Work Phone: Evaluation note Note Date & Type Note Facility Evaluation note Diagnosis Onset Date Cancer of right female breast chronic Osteopenia chronic Cancer of right female breast chronic Osteopenia chronic Left knee pain acute Hyperlipidemia chronic Hypertension chronic Type 2 diabetes mellitus [facility] Work Phone: Evaluation note Note Date & Type Note Facility Evaluation note Diagnosis Onset Date Left knee pain acute Hyperlipidemia chronic Hypertension chronic Type 2 diabetes mellitus [facility] Health care maintenance acut e Hyperlipidemia chronic Hypertension chronic Type 2 diabetes mellitus [facility] Work Phone: Evaluation note Note Date & Type Note Facility Evaluation note Diagnosis Onset Date Hypertension chronic Osteopenia chronic Type 2 diabetes mellitus [facility] Work Phone: Evaluation note Note Date & Type Note Facility Evaluation note Diagnosis Onset Date Respiratory infection acute Cancer of right female breast chronic Osteopenia chronic Cancer of right female breast chronic Osteopenia chronic Hyperlipidemia chronic Hypertension chronic Type 2 diabetes mellitus [facility] Work Phone: Reason for referral (narrative) Note Date & Type Note Facility Reason for referral (narrative) No reason for referral information available [facility] Work Phone: Chief Complaint and Reason for Visit Chief Complaint 3 MO FU URINE DROP UTI SYMPTOMS OA SCANNING ONLY! 3 M FU Reason for Visit Health care maintena nce Hypertension Type 2 diabetes mellitus Burning with urination Urinary frequency Type 2 diabetes mellitus Hypertension Osteopenia Type 2 diabetes mellitus Chief Complaint 6 MO - LABS - PROLIA ONC/HEM 3 M FU SCREENING Reason for Visit Cancer of right fema le breast Osteopenia Cancer of right female breast Osteopenia Left knee pain Hyperlipidemia Hypertension Type 2 diabetes mellitus Chief Complaint 3 M FU SCREENING 3 M FU Reason for Visit Left knee pain Hyperlipidemia Hypertension Type 2 diabetes mellitus Health care maintenance Hyperlipidemia Hypertension Type 2 diabetes mellitus Chief Complaint CHK UP Reason for Visit Hypertension Osteopenia Type 2 diabetes mellitus Chief Complaint CHK UP OSTEO Reason for Visit Hypertension Osteopenia Type 2 diabetes mellitus Chief Complaint SORE THROAT, COUGH 6 MO - NO LABS - PROLIA ONC/HEM 4 M FU SCREENING Reason for Visit Respiratory infectio n Cancer of right female breast Osteopenia Cancer of right female breast Osteopenia Hyperlipidemia Hypertension Type 2 diabetes mellitus Chief Complaint Admit Date 3 M FU July 04, 2024 8 :12am RECLAST October 03, 2024 12:45p m 6 [facility] - LABS - [facility] October 03, 2024 12:53 pm 3 M FU October 10, 2024 8:48a m Reason for Visit Admit Date Health care maintenance July 04 8:12am Hyperlipidemia July 04, 2024 8 :12am Hypertension July 04, 2024 8 :12am Type 2 diabetes mellitus July 04, 2 025 8:12am Cancer of right female breast October 03, 2 025 12:45pm Osteopenia October 03, 2024 12:45p m Cancer of right female breast October 03, 2 025 12:53pm Osteopenia October 03, 2024 12:53p m Health care maintenance October 10, 2024 8 :48am Bilateral lower extremity edema September 8:48am Hyperlipidemia October 10, 2024 8:48a m Hypertension October 10, 2024 8:48a m Type 2 diabetes mellitus October 10, 2024 8:48am Chief Complaint Admit Date RECLAST October 03, 2024 12:45p m 6 MO - LABS - [facility] October 03, 2024 12:53 pm 3 M FU October 10, 2024 8:48a m SCREENING January 05, 2025 9:5 4am Reason for Visit Admit Date Cancer of right female breast October 03 025 12:45pm Osteopenia October 03, 2024 12:45p m Cancer of right female breast October 03 025 12:53pm Osteopenia October 03, 2024 12:53p m Health care maintenance October 10, 2024 8 :48am Bilateral lower extremity edema September 8:48am Hyperlipidemia October 10, 2024 8:48a m Hypertension October 10, 2024 8:48a m Type 2 diabetes mellitus October 10, 2024 8:48am Chief Complaint Admit Date RECLAST October 03, 2024 12:45p m 6 MO - LABS - [facility] October 03, 2024 12:53 pm 3 M FU October 10, 2024 8:48a m SCREENING January 05, 2025 9:5 4am 3 m fu January 16, 2025 8: 39am Family History No Family History Records Found Relationship Condition Age at Onset Recorded Date/T lorna mother Coronary artery disease Unknown Cardiac disease Unknown Asthma Unknown father Coronary artery disease Unknown Thrombocytopenia Unknown Malignant melanoma Unknown Myocardial infarction 83 brother Suicide Unknown grandfather Malignant neoplasm of colon Unknown sister Asthma Unknown Family Member Condition Father Melanoma Father Heart disease Father Mother High blood pressure Mother Heart disease Mother Arthritis Mother Alive Advance Directives No Advanced Directives Records Found Advance Directive Response Recorded Date/ Time Advance Directives No June 14, 2021 11:06am Living Will No August 26, 2021 11:31am Power of Breastfeeding Peer Counselor No August 26 11:31am Advance Directive Response Recorded Date/ Time Advance Directives No September 30, 2021 1:43pm Living Will No September 30, 2021 1: 43pm Power of Breastfeeding Peer Counselor No September 30, 2021 1:43pm Advance Directive Response Recorded Date/ Time Advance Directives No August 01 9:19am Living Will No August 01, 2022 9:19am Power of Breastfeeding Peer Counselor No August 01 9:19am Advance Directive Response Recorded Date/ Time Advance Directives No August 01 10:19am Living Will No August 01, 2022 10:19am Power of Breastfeeding Peer Counselor No August 01 10:19am Advance Directive Response Recorded Date/ Time Living Will No August 01, 2022 10:19am Do you have a Healthcare Power of Breastfeeding Peer Counselor? No August 01, 2022 10:19am Living Will No September 30, 2021 1: 43pm Do you have a Healthcare Power of Breastfeeding Peer Counselor? No September 30, 2021 1:43pm Advance Directives No August 01 10:19am Summary Purpose Additional Source Comments Goals (unrecognized section and content) Goals may be documented in a n alternate sectionGoals may be documented in an alternate sectionGoals may be documented in an alternate sectionGoals may be documented in an alternate sectionGoals may be documented in an alternate sectionGoals may be documented in an alternate section No Information AvailableGoals may be documented in an alternate sectionGoals may be documented in an alternate section Care Teams (unrecognized sec tion and content) Team Status: Active Member Role Status Dates Dr. Shereen Shoemaker MD Family Provider Active Dr. Shereen Shoemaker MD Primary Care Provider Active Team Status: Inactive Member Role Status Dates Dr. Shereen Shoemaker MD Primary Care [place], Attending Provider, Referring Provider Active Team Status: Inactive Member Role Status Dates Dr. Shereen Shoemaker MD Primary Care Provider Active Dr. Frances Bolivar MD Attending Provider Active Team Status: Inactive Member Role Status Dates Dr. Shereen Shoemaker MD Primary Care Provider, Refer ring Provider Active Dr. Frances Bolivar MD Attending Provider Active Team Status: Inactive Member Role Status Dates Dr. Shereen Shoemaker MD Primary Care Provider, Refer ring Provider Active PETEY Macias Attending Provider Active Team Status: Active Member Role Status Dates Dr. Frances Bolivar MD Attending Provider Active Dr. Shereen Shoemaker MD Primary Care Provider, Famil y Provider Active DEFINED NOT Referring Provider Active Team Status: Inactive Member Role Status Dates Dr. Shereen Shoemaker MD Primary Care Provider Active Dr. Frances Bolivar MD Attending Provider, Referrin g Provider Active Team Status: Active Member Role Status Dates Dr. Shereen Shoemaker MD Primary Care Provider Active Team Status: Inactive Member Role Status Dates Dr. Shereen Shoemaker MD Primary Care Provider Active Start: July 04, 2024 End: July 04, 2024 Dr. Shereen Shoemaker MD Attending Provider Active Start: July 04, 2024 End: July 04, 2024 Dr. Shereen Shoemaker MD Referring Provider Active Start: July 04, 2024 End: July 04, 2024 Team Status: Active Member Role Status Dates Dr. Frances Bolivar MD Attending Provider Active Start: October 03, 2024 Dr. Shereen Shoemaker MD Primary Care Provider Active Start: October 03, 2024 Dr. Shereen Shoemaker MD Family Provider Active Start: October 03, 2024 DEFINED NOT Referring Provider Active Start: 2024 Team Status: Inactive Member Role Status Dates Dr. Shereen Shoemaker MD Primary Care Provider Active Start: October 03, 2024 End: October 03, 2024 Dr. Shereen Shoemaker MD Referring Provider Active Start: October 03, 2024 End: October 03, 2024 Dr. Frances Bolivar MD Attending Provider Active Start: October 03, 2024 End: October 03, 2024 Team Status: Inactive Member Role Status Dates Dr. Shereen Shoemaker MD Primary Care Provider Active Start: October 07, 2024 End: October 07, 2024 Dr. Shereen Shoemaker MD Attending Provider Active Start: October 07, 2024 End: October 07, 2024 Dr. Shereen Shoemaker MD Referring Provider Active Start: October 07, 2024 End: October 07, 2024 Team Status: Inactive Member Role Status Dates Dr. Shereen Shoemaker MD Primary Care Provider Active Start: October 10, 2024 End: October 10, 2024 Dr. Shereen Shoemaker MD Attending Provider Active Start: October 10, 2024 End: October 10, 2024 Dr. Shereen Shoemaker MD Referring Provider Active Start: October 10, 2024 End: October 10, 2024 Team Status: Active Member Role/Relationship Status Dates Dr. Shereen Shoemaker MD Primary Care Provider Active Team Status: Active Member Role/Relationship Status Dates Dr. Frances Bolivar MD Attending Provider Active Start: October 03, 2024 Dr. Shereen Shoemaker MD Primary Care Provider Active Start: October 03, 2024 Dr. Shereen Shoemaker MD Family Provider Active Start: October 03, 2024 DEFINED NOT Referring Provider Active Start: 2024 Team Status: Inactive Member Role/Relationship Status Dates Dr. Shereen Shoemaker MD Primary Care Provider Active Start: October 03, 2024 End: October 03, 2024 Dr. Shereen Shoemaker MD Referring Provider Active Start: October 03, 2024 End: October 03, 2024 Dr. Frances Bolivar MD Attending Provider Active Start: October 03, 2024 End: October 03, 2024 Team Status: Inactive Member Role/Relationship Status Dates Dr. Shereen Shoemaker MD Primary Care Provider Active Start: October 07, 2024 End: October 07, 2024 Dr. Shereen Shoemaker MD Attending Provider Active Start: October 07, 2024 End: October 07, 2024 Dr. Shereen Shoemaker MD Referring Provider Active Start: October 07, 2024 End: October 07, 2024 Team Status: Inactive Member Role/Relationship Status Dates Dr. Shereen Shoemaker MD Primary Care Provider Active Start: October 10, 2024 End: October 10, 2024 Dr. Shereen Shoemaker MD Attending Provider Active Start: October 10, 2024 End: October 10, 2024 Dr. Shereen Shoemaker MD Referring Provider Active Start: October 10, 2024 End: October 10, 2024 Team Status: Inactive Member Role/Relationship Status Dates Dr. Shereen Shoemaker MD Primary Care Provider Active Start: January 05, 2025 End: January 05, 2025 Dr. Frances Bolivar MD Attending Provider Active Start: January 05, 2025 End: January 05, 2025 Dr. Frances Bolivar MD Referring Provider Active Start: January 05, 2025 End: January 05, 2025 Team Status: Inactive Member Role/Relationship Status Dates Dr. Shereen Shoemaker MD Primary Care Provider Active Start: January 16, 2025 End: January 16, 2025 Dr. Shereen Shoemaker MD Attending Provider Active Start: January 16, 2025 End: January 16, 2025 Dr. Shereen Shoemaker MD Referring Provider Active Start: January 16, 2025 End: January 16, 2025 REASON FOR VISIT (unrecogniz ed section and content) right ring finger catching, Follow-up by complaint INFORMATION SOURCE (unrecogn ized section and content) DATE CREATED AUTHOR 04/10/2025 [facility] FOR RECORDS PERTAINING TO PATIENTS WHO ARE OR HAVE BEEN ENROLLED IN A CHEMICAL DEPENDENCY/SUBSTANCEABUSE PROGRAM, SOME INFORMATION MAY BE OMITTED. This clinical summary was aggregated from multiple sources. Caution should be exercised in using it in the provision of clinical care. This summary normalizes information from multiple sources, and as a consequence, information in this document may materially change the coding, format and clinical context of patient data. In addition, data may be omitted in some cases. CLINICAL DECISIONS SHOULD BE BASED ON THE PRIMARY CLINICAL RECORDS. [facility]. provides no warranty or guarantee of the accuracy or completeness of information in this document.
== END | disposition home or self-care (01) ==
PROVIDERS: PCP Internal Medicine; Referring Provider Internal Medicine; Visit Provider Internal Medicine
DX: Z78.0 Asymptomatic menopausal state (principal)
CPT/HCPCS: 77080